=== PATIENT | female | born 1935 | race Caucasian/White ===

== ENCOUNTER → 2016-11-13 | Outpatient (CLI) | payer MEDICARE ==
[2016-11-13 13:10] LABS: BASO % 0.2 %; BASO ABS # 0.01 K/uL (0-0.2); COMPLETE YES; EOS % 2.8 %; HEMATOCRIT 37.8 % (37-47); IG% 0.2 %; LYMPH % 34.2 %; LYMPH ABS # 1.59 K/uL (1.2-3.4); MEAN CELL VOLUME 90.9 fL (80-100); MEAN CORPUSCULAR HEMOGLOBIN 32.2 pg (25-34); MEAN CORPUSCULAR HGB CONC 35.4 g/dl (32-36); MEAN PLATELET VOLUME 9.7 fL (7.4-10.4); MONO % 8.2 %; NEUT % 54.4 %; PLATELET COUNT 140 K/uL (130-400); RED BLOOD COUNT 4.16 M/uL (4.2-5.4); WHITE BLOOD COUNT 4.65 K/uL (4.8-10.8)
[2016-11-13 18:27] LABS: BLOOD UREA NITROGEN 14 mg/dl (7-18); BUN/CREATININE RATIO 15.4 (10-20); CALCIUM 9.2 mg/dl (8.5-10.1); CARBON DIOXIDE 28 mmol/L (21-32); CHLORIDE 95 mmol/L (98-107); CREATININE 0.89 mg/dl (0.60-1.20); GLUCOSE 100 mg/dl (70-99); POTASSIUM 4.4 mmol/L (3.5-5.1); SODIUM 131 mmol/L (136-145)
[2016-11-13 18:37] LABS: PHOSPHORUS 3.7 mg/dl (2.5-4.9)
== END | disposition home or self-care (01) ==
LOC: C.LABMFLN 09:17
PROVIDERS: ATTEND Family Medicine
DX: I10 Essential (primary) hypertension (principal); E03.9 Hypothyroidism, unspecified

== ENCOUNTER → 2016-11-20 | Outpatient (CLI) | payer MEDICARE ==
[2016-11-20 18:04] LABS: BLOOD UREA NITROGEN 16 mg/dl (7-18); BUN/CREATININE RATIO 20.6 (10-20); CARBON DIOXIDE 29 mmol/L (21-32); CHLORIDE 99 mmol/L (98-107); GLUCOSE 77 mg/dl (70-99); PHOSPHORUS 3.4 mg/dl (2.5-4.9); POTASSIUM 3.8 mmol/L (3.5-5.1); SODIUM 136 mmol/L (136-145)
== END | disposition home or self-care (01) ==
LOC: C.LABMFLN 11:14
PROVIDERS: ATTEND Family Medicine
DX: E87.1 Hypo-osmolality and hyponatremia (principal)

== ENCOUNTER → 2017-03-11 | Outpatient (CLI) | payer MEDICARE ==
[~2017-03-11] MED LIST: ACET-1256 PO; AMLO-110 PO; ASCA500 PO; ASPI81TA25 PO; BENA1TAB53 PO; CALC600T9 PO; CALC625T35 PO; CLON0.5T3 PO; GLUC10007 PO; LEVO25TA PO; LYR50 PO; NTRGSL/4 SL; OMEP40CA41 PO; POTA10CA28 PO; SIMV20TA2 PO; VITA1TAB4 PO
== END | disposition home or self-care (01) ==
LOC: C.LABMFLN 08:43
PROVIDERS: ATTEND Family Medicine
DX: R30.0 Dysuria (principal)

== ENCOUNTER → 2017-03-17 | Outpatient (CLI) | payer MEDICARE | END | disposition home or self-care (01) | LOC: C.LABMFLN 10:08 | PROVIDERS: ATTEND Family Medicine | DX: R30.0 Dysuria (principal); N39.0 Urinary tract infection, site not specified ==

== ENCOUNTER → 2017-06-17 | Outpatient (CLI) | payer MEDICARE ==
[2017-06-17 18:08] LABS: ALT/SGPT 20 U/L (12-78); BLOOD UREA NITROGEN 18 mg/dl (7-18); BUN/CREATININE RATIO 24.4 (10-20); CALCIUM 9.7 mg/dl (8.5-10.1); CARBON DIOXIDE 27 mmol/L (21-32); CHLORIDE 96 mmol/L (98-107); CHOLESTEROL 155 mg/dl (0-200); CREATININE 0.75 mg/dl (0.60-1.20); GLUCOSE 91 mg/dl (70-99); POTASSIUM 4.6 mmol/L (3.5-5.1); SODIUM 130 mmol/L (136-145)
[2017-06-17 18:17] LABS: ALB/GLOB RATIO 1.2 (0.9-2); ALKALINE PHOSPHATASE 76 U/L (45-117); AST/SGOT 18 U/L (15-37); BASO % 0.4 %; BASO ABS # 0.02 K/uL (0-0.2); CHOLESTEROL/HDL RATIO 1.9; COMPLETE YES; EOS % 2.3 %; HDL CHOLESTEROL 81 mg/dl; HEMATOCRIT 38.5 % (37-47); IG% 0.2 %; LDL CHOLESTEROL CALCULATED 58 mg/dl; LYMPH % 30.2 %; LYMPH ABS # 1.58 K/uL (1.2-3.4); MEAN CELL VOLUME 92.8 fL (80-100); MEAN CORPUSCULAR HGB CONC 35.6 g/dl (32-36); MEAN PLATELET VOLUME 10.2 fL (7.4-10.4); MONO % 8.8 %; NEUT % 58.1 %; PLATELET COUNT 146 K/uL (130-400); RED BLOOD COUNT 4.15 M/uL (4.2-5.4); TRIGLYCERIDES 81 mg/dl (0-150); VERY LOW DENSITY LIPOPROT CALC 16 mg/dl; WHITE BLOOD COUNT 5.24 K/uL (4.8-10.8)
== END | disposition home or self-care (01) ==
LOC: C.LABMFLN 12:16
PROVIDERS: ATTEND Family Medicine
DX: I10 Essential (primary) hypertension (principal); E78.5 Hyperlipidemia, unspecified; E03.9 Hypothyroidism, unspecified

== ENCOUNTER → 2017-07-02 | Outpatient (CLI) | payer MEDICARE ==
[~2017-07-02] MED LIST changes: +BENA1TAB19 PO; -BENA1TAB53 PO
[2017-07-02 13:36] LABS: BLOOD UREA NITROGEN 18 mg/dl (7-18); BUN/CREATININE RATIO 25.6 (10-20); CALCIUM 9.2 mg/dl (8.5-10.1); CARBON DIOXIDE 30 mmol/L (21-32); CHLORIDE 102 mmol/L (98-107); CREATININE 0.71 mg/dl (0.60-1.20); GLUCOSE 86 mg/dl (70-99); POTASSIUM 3.9 mmol/L (3.5-5.1); SODIUM 137 mmol/L (136-145)
[2017-07-02 13:37] LABS: PHOSPHORUS 3.7 mg/dl (2.5-4.9)
== END | disposition home or self-care (01) ==
LOC: C.LABMFLN 11:25
PROVIDERS: ATTEND Family Medicine
DX: E87.1 Hypo-osmolality and hyponatremia (principal)

== ENCOUNTER → 2017-08-21 | Outpatient (CLI) | payer MEDICARE ==
[~2017-08-21] MED LIST changes: -BENA1TAB19 PO; +BENA1TAB53 PO
[2017-08-21 18:07] LABS: BLOOD UREA NITROGEN 18 mg/dl (7-18); BUN/CREATININE RATIO 24.9 (10-20); CARBON DIOXIDE 32 mmol/L (21-32); CHLORIDE 100 mmol/L (98-107); CREATININE 0.72 mg/dl (0.60-1.20); GLUCOSE 71 mg/dl (70-99); POTASSIUM 3.7 mmol/L (3.5-5.1); SODIUM 136 mmol/L (136-145)
== END | disposition home or self-care (01) ==
LOC: C.LABMFLN 11:48
PROVIDERS: ATTEND Physician Assistant
DX: E87.1 Hypo-osmolality and hyponatremia (principal)

== ENCOUNTER → 2017-08-26 | Outpatient (CLI) | payer MEDICARE ==
[2017-08-26 12:57] LABS: URINE APPEARANCE CLEAR (CLEAR); URINE BILIRUBIN NEG (NEG); URINE COLOR DK YELLOW; URINE NITRITE POS (NEG); URINE PH 5.5 (4.5-7.5); URINE SPECIFIC GRAVITY 1.016 (1.000-1.030); UROBILINOGEN NEG (NEG)
[2017-08-26 13:02] LABS: MANUAL MICROSCOPIC REQUIRED? NO; REVIEW REQ? NO
== END | disposition home or self-care (01) ==
LOC: C.LABMFLN 10:45
PROVIDERS: ATTEND Family Medicine
DX: R39.15 Urgency of urination (principal)

== ENCOUNTER → 2018-01-02 | Outpatient (CLI) | payer MEDICARE ==
--- NOTE | 2018-01-02 11:01 | DIAGNOSTIC IMAGING REPORT ---
SINUSES-MAXILLOFACIAL W/O CLINICAL HISTORY: 82 years-old Female presenting with J32.9 Chronic [id number]. TECHNIQUE: Multidetector CT of the sinuses was performed without the use of intravenous contrast. IV contrast: None. A dose lowering technique was used consistent with the principles of ALARA (as low as reasonably achievable). COMPARISON: None. CT DOSE (mGy.cm): The estimated cumulative dose is 293.27 mGycm. FINDINGS: [facility] Administrator topogram: Unremarkable. Paranasal sinuses demonstrate minimal mucosal thickening in the maxillary sinuses inferiorly. Mastoid air cells and middle ears clear. No significant deviation of the bony nasal septum. Ostiomeatal units patent. Nasofrontal ethmoidal recesses patent. No sclerosis of the sinus schafer to suggest chronic sinusitis. No osseous erosion. 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 No dehiscence of the bony optic canals. No other anatomic variant. Orbits normal. Degenerative changes of the upper cervical spine. Limited intracranial evaluation within normal limits. Superficial soft tissues of the face normal. IMPRESSION: 1. No current evidence of acute or chronic sinusitis. 2. 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 No other anatomic variant. Electronically signed by: Fili Patel M.D. 01/02/2018 11:00 AM Dictated Date/Time: 01/02/2018 10:56 AM
== END | disposition home or self-care (01) ==
LOC: C.CTS 10:37
PROVIDERS: ATTEND Family Medicine
DX: J32.9 Chronic sinusitis, unspecified (principal)

== ENCOUNTER 2025-04-13 12:34 | Inpatient (IN) ==
--- NOTE | 2025-04-13 14:05 | Emergency Department Note ---
Impression & Plan Acute hyponatremia, Constipation ED Provider Note NAME: GISELA ALFARO AGE: 89 SEX: F : 1935 ARRIVES VIA: Walk-In INFORMANT: Patient, ED PROVIDER(S): Mo Ambrzi MD CHIEF COMPLAINT: Outpatient referral, hyponatremia MEDICAL DECISION MAKING: Patient presents with the above. IV was established and blood work was obtained. The patient was noted to have significant hyponatremia of 109. Patient with a normal white count hemoglobin and platelet count. Patient does have a soft palpable abdomen screening KUB is unremarkable. Patient was ordered hypertonic 3% 100 cc saline bolus. I did discuss this with the hospitalist prior to admission who agreed with the plan of care. Urinalysis that showed concern for infection. Patient was ordered IV Rocephin. Urine and serum osmolality ordered along with urine electrolytes. I did speak with the on-call hospitalist after discussing this with the patient and the patient's family at bedside. Patient was admitted to the medicine service by Dr. Nova. Critical Care: I have personally spent 49 minutes of critical care time in direct management of this patient. This includes bedside care, interpretation of diagnostic studies, and testing, discussion with consultants, patient, and family members, and other require inpatient management activities. This 49 minutes is in excess of all separately billable procedures. Discussion w/ other healthcare providers: None Prior /Outside records reviewed: None Differential diagnosis: Infection, dehydration, metabolic abnormality, hypo/hyperglycemia, electrolyte imbalance, anemia, UTI, pneumonia, thyroid dysfunction among others were considered. Diagnostics, as interpreted by me: ECG: None Cardiac monitoring: An order was placed for continuous cardiac monitoring. The monitor shows a rate of 75 with sinus rhythm. Patient was placed on pulse oximetry Medical decision rules: None Imaging studies: I informally interpreted the patient's KUB does not show evidence of obvious obstruction with formal report to follow. HPI: Patient presents due to concern for constipation. Reportedly had a CT scan completed 2 days prior and they were concerned about a fecal impaction. Patient reportedly is not had a bowel movement 1 week in duration. Patient is passing gas. Patient also reports that she has had some issues over the right hip after receiving a back injection 2 weeks ago and has since developed a right foot drop which has been chronic. Patient denies any chest pains or shortness of breath. Patient is had nausea and dry heaves but no vomiting as the patient has not been eating or drinking very much. PAST MEDICAL HISTORY: See Below PAST SURGICAL HISTORY: See Below SOCIAL HISTORY: See Below HOME MEDICATIONS: See Below ALLERGIES: See Below VITALS: See Below PHYSICAL EXAMINATION: GENERAL: NAD, non-toxic. Wearing glasses. EYE EXAM: Normal conjunctiva. PERRL, no anisocoria and EOM's grossly intact w/o pain. OROPHARYNX: Moist mucus membranes, grossly normal dentition. NECK: Trachea midline, no stridor. LUNGS: Clear to auscultation. Normal chest wall mechanics. HEART: NSR, no MRG. ABDOMEN: Abdomen soft, distended but nontender, no masses, no rebound or guarding. BACK: No CVA TTP. SKIN: No rashes and no bruising. UPPER EXTREMITIES: Upper extremities are grossly normal. LOWER EXTREMITIES: Grossly normal, lower extremity edema symmetric without calf pain or erythema. NEURO EXAM: Awake and alert, follows commands, no obvious facial asymmetry, normal speech, moves all 4 extremities. Decreased mobility of the right foot when compared to the left. Past Med/Surg History Problem List (Updated 04/15/25 @ 23:41 by Mo Ambriz MD) Constipation (Acute) Acute hyponatremia (Acute) Hernia, mesocolon Constipation Right foot drop Lumbar back pain with radiculopathy affecting right lower extremity Degenerative lumbar spinal stenosis Cystitis Excessive cerumen in both ear canals Sepsis Pyelonephritis Dysuria Snores Dyspnea on exertion Anxiety Low back pain Lipoma H/O adenomatous polyp of colon (Acute) Sinus bradycardia (Acute) Sciatica of right side (Acute) Paroxysmal ventricular tachycardia (Acute) Medical History Acid reflux disease Psoriasis Rheumatoid arthritis Vitamin D deficiency Anxiety Diastolic dysfunction Hearing deficit Hyperlipidemia Hyperplastic polyps of stomach Hyponatremia Scoliosis Left bundle branch block Idiopathic peripheral neuropathy Generalized osteoarthritis of multiple sites Paroxysmal atrial tachycardia History of colon polyps Hypothyroidism Hypertension Lumbar spinal stenosis Lumbar radiculopathy, right 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 Age related osteoporosis Wears hearing aid in both ears Osteoarthritis History of gastric polyp Hyperlipidemia Left bundle branch block Peripheral neuropathy Surgical History History of dilatation and curettage History of open reduction and internal fixation (ORIF) procedure 1985 left--hardware removed History of esophagogastroduodenoscopy (EGD) History of tooth extraction History of phacoemulsification of cataract of both eyes with intraocular lens implantation Hx of cholecystectomy History of thyroidectomy, subtotal History of colonoscopy Family History Grandmother (Paternal) Cardiomegaly Father Suicide Hypertension Aunt Scleroderma Mother Suicide Brother Family history of diabetes mellitus at age 34 Prostate cancer Other No family history of adverse response to anesthesia Denies family history of Ovarian cancer Myocardial infarction Breast cancer Colorectal cancer Social History Smoking Status: Never smoker Second Hand Exposure: No; Do You Dip or Chew Tobacco: No; Hx Alcohol Use: No Hx Substance Use: No Preferred Language: Kyrgyz Communication Ability: Effective Visual Impairment: Partially Limited Hearing Ability: Use of Hearing Aid [place] Required: No Beliefs That Will Affect Care: None marital status: / Current Living Situation: Family Current Living Situation Comment: lives with daughter current occupational status: retired How many Children do You have: 6 How many Children do You have Comment: 5 alive 1 Other Information That Helps Us Care for You: No Feels Safe at Home: Yes Safety Concerns: Feels Safe At This Time Childhood Exposure to Second-Hand Smoke: Yes Diet: low carbohydrate, low salt and regular caffeine: Yes during the past year weight has: remained stable Dental Care, Regularly: Yes Physical Activity Frequency: Does not Exercise Seatbelt Use: always Sunscreen Use: No Gender Identity: Female Assistive Devices: Walker Allergies Allergies Allergy/AdvReac Type Severity Reaction Status Date / Time metoclopramide Allergy Severe tardive Verified 04/13/25 15:06 dyskinesia meloxicam Allergy Intermediate GI SYMPTOMS Verified 04/13/25 15:06 sulfamethoxazole Allergy Intermediate GI SYMPTOMS Verified 04/13/25 15:06 trimethoprim Allergy Intermediate GI SYMPTOMS Verified 04/13/25 15:06 Home Meds Home Medications Medication Instructions Recorded Confirmed acetaminophen 500 mg tablet 1,000 mg PO DIRECTED PRN fever 02/22/19 04/13/25 or pain ascorbic acid (vitamin C) 500 mg 500 mg PO QAM 02/22/19 04/13/25 tablet calcium 600 mg (as 1 tab PO DAILY 02/22/19 04/13/25 carbonate)-vitamin D3 5 mcg (200 unit) tablet fluticasone propionate 50 2 sprays intranasal DAILY PRN 02/22/19 04/13/25 mcg/actuation nasal Allergy Symptoms #1 g spray,suspension aspirin 81 mg tablet,delayed 81 mg PO 3XWK 05/25/24 04/13/25 release (Crystal Low Dose Aspirin) cranberry 500 mg capsule 500 mg PO 3XWK 05/25/24 04/13/25 glucosamine sulfate 500 mg capsule 500 mg PO DAILY 05/25/24 04/13/25 clonazepam 0.5 mg tablet 0.5 mg PO HS anxiety 04/13/25 04/13/25 lidocaine 4 % topical patch 1 patch topical DAILY PRN pain 04/13/25 04/13/25 Previous Rx's Medication Instructions Recorded cyanocobalamin (vitamin B-12) 1,000 mcg PO DAILY #30 tabs 11/25/22 1,000 mcg tablet omeprazole 40 mg capsule,delayed 40 mg PO DAILY #90 caps 08/02/24 release potassium chloride 10 mEq 10 meq PO 3XWK #36 tabs 09/14/24 tablet,extended release nitroglycerin 0.4 mg sublingual 0.4 mg sublingual Q5M PRN Angina 11/16/24 tablet #20 tabs triamterene 37.5 1 tab PO DAILY #90 tabs 12/20/24 mg-hydrochlorothiazide 25 mg tablet furosemide 20 mg tablet (Lasix) 20 mg PO DAILY #30 tabs 02/14/25 simvastatin 20 mg tablet 20 mg PO DAILY #90 tabs 03/04/25 amlodipine 5 mg tablet 5 mg PO DAILY #90 tabs 03/08/25 levothyroxine 25 mcg tablet 25 mcg PO DAILY #90 tabs 03/08/25 benazepril 40 mg tablet 40 mg PO QAM #90 tabs 03/14/25 tizanidine 2 mg tablet 2 mg PO Q8H PRN muscle spasticity 03/14/25 #90 tabs ondansetron 4 mg disintegrating 4 mg PO Q8H PRN nausea and 04/08/25 tablet vomiting #12 tabs oxycodone 5 mg tablet 5 mg PO Q4H PRN pain #15 tabs 04/08/25 Results & Data (ED) Vital Signs Vital Signs - 24 hr 04/13/25 12:37 07/30/25 13:53 Temperature 36.8 C Temperature Source Temporal Artery Scan Pulse Rate 65 Pulse Rate [Right Finger] 62 Pulse Rhythm [Right Finger] Regular Pulse Strength [Right Finger] Normal Respiratory Rate 18 18 Respiratory Effort / Characteristics Non-Labored Spontaneous Non-Labored Respiratory Depth Normal Normal Respiratory Pattern Regular Regular Blood Pressure 161/73 H Blood Pressure [Right Arm] 188/82 H Blood Pressure Mean 102 Blood Pressure Mean [Right Arm] 117 Blood Pressure Position [Right Arm] Lying Pulse Oximetry 96 97 Oxygen Delivery Method Room Air Room Air Sepsis Recent Fever Within 48 Hours No Sepsis New/Unexplained Change in Mental Status N/A Sepsis Action Taken by Nursing No Action Required Home Medications Current Medication List: was personally reviewed by me Laboratory Data Attestation: I reviewed the patient's lab results. 04/15/25 04:53 04/15/25 20:27 Lab Results 04/13/25 04/13/25 04/13/25 Range/Units 13:20 13:36 16:30 WBC 8.47 (4.8-10.8) K/ul RBC 4.04 L (4.20-5.40) M/uL Hgb 13.0 (12.0-16.0) g/dl Hct 34.8 L (37.0-47.0) % MCV 86.1 (80.0-100.0) fL MCH 32.2 (25.0-34.0) pg MCHC 37.4 H (32.0-36.0) g/dL RDW Std Deviation 33.9 L (36.4-46.3) fL RDW Coeff of Sarah 10.9 L (11.5-14.5) % Plt Count 211 (130-400) K/uL MPV 9.0 L (9.4-12.4) fL Immature Gran % (Auto) 0.6 % Neut % (Auto) 83.5 % Lymph % (Auto) 11.1 % [place] % (Auto) 4.5 % Eos % (Auto) 0.2 % Baso % (Auto) 0.1 % Neut # (Auto) 7.07 H (1.40-6.50) K/uL Lymph # (Auto) 0.94 L (1.20-3.40) K/uL [place] # (Auto) 0.38 (0.11-0.59) K/uL Eos # (Auto) 0.02 (0.00-0.50) K/uL Baso # (Auto) 0.01 (0.00-0.20) K/uL Immature Gran # (Auto) 0.05 (0.01-0.20) K/uL Toxic Vacuolation 1+ Sodium 109 L* 111 L* (136-145) mmol/L Potassium 3.9 3.8 (3.5-5.1) mmol/L Chloride 75 L 76 L (98-107) mmol/L Carbon Dioxide 23 26 (21-32) mmol/L Anion Gap 11 9 (3-11) BUN 18 18 (6-23) mg/dl Creatinine 0.77 0.70 (0.6-1.2) mg/dl Est Cr Clr Drug Dosing Not Reportable 54.4 eGFR 73.69 82.62 BUN/Creatinine Ratio 23.4 H 25.7 H (10-20) Glucose 111 H 111 H (70-99(Fasting)) mg/dl Osmolality 232 L* (280-300) mOsm/kg Calcium 9.7 9.0 (8.6-10.3) mg/dl Total Bilirubin 1.5 H (0.2-1.0) mg/dl AST 33 (13-39) U/L ALT 17 (7-52) U/L Alkaline Phosphatase 61 (34-104) U/L Total Protein 7.7 (6.0-8.3) gm/dl Albumin 4.5 (3.4-5.0) gm/dl Globulin 3.2 (2.5-4.0) gm/dl Albumin/Globulin Ratio 1.4 (0.9-2) Lipase 11 (11-82) U/L Random Cortisol 27.16 mcg/dl Urine Color Yellow Urine Appearance Cloudy A (Clear) Urine pH 7.0 (4.5-7.5) Ur Specific Cougar 1.013 (1.000-1.030) Urine Protein 1+ H (Negative) Urine Glucose (UA) Negative (Negative) Urine Ketones 1+ H (Negative) Urine Blood Negative (Negative) Urine Nitrite Negative (Negative) Urine Bilirubin Negative (Negative) Urine Urobilinogen Negative (Negative) Ur Leukocyte Esterase 1+ H (Negative) Urine WBC (Auto) 0-5 (0-5) /hpf Urine RBC (Auto) 0-2 (0-2) /hpf U Hyaline Cast (Auto) 0-2 (0-2) /lpf U Epithel Cells (Auto) 0-2 (0-2) /hpf Urine Bacteria (Auto) 4+ H (None Seen) Urine Osmolality 474 L (500-800) mOsm/kg Urine Sodium 103 mmol/L Urine Potassium 37.2 mmol/L Urine Chloride 91 mmol/L Urine Comment Administered Medications Acetaminophen (Acetaminophen 500 Mg Tab) 500 mg PO Q6H PRN PRN Reason: Fever Stop: 05/13/25 20:25 Last Admin: 04/15/25 12:19 Dose: 500 mg Documented By: JOANIE Hydrocodone Bitart/Acetaminophen (Hydrocodone/Acetaminophen 7.5/325mg Tab) 1 tab PO Q6H PRN PRN Reason: Pain Stop: 04/27/25 20:25 Last Admin: 04/15/25 22:46 Dose: 1 tab Documented By: [id number] Admin: 04/15/25 09:13 Dose: 1 tab Documented By: Admin: 04/14/25 08:49 Dose: 1 tab Documented By: Admin: 04/13/25 23:13 Dose: 1 tab Documented By: ESG Clonazepam (Clonazepam 0.5 Mg Tab) 0.5 mg PO HS SAAD Stop: 05/13/25 20:59 Last Admin: 04/15/25 20:53 Dose: 0.5 mg Documented By: [id number] Admin: 04/14/25 21:05 Dose: 0.5 mg Documented By: Admin: 04/13/25 21:33 Dose: 0.5 mg Documented By: GABRIELK Cyanocobalamin (Cyanocobalamin (B-12) 500 Mcg Tablet) 1,000 mcg PO DAILY SAAD Stop: 05/14/25 08:59 Last Admin: 04/15/25 09:12 Dose: 1,000 mcg Documented By: Admin: 04/14/25 08:27 Dose: 1,000 mcg Documented By: CELINA Diclofenac Sodium (Diclofenac Sod 1% Gel 100 Gm Tube) 4 gm EXT Q6H PRN; Protocol PRN Reason: Pain Stop: 05/14/25 17:14 Last Admin: 04/15/25 10:24 Dose: 4 gm Documented By: Admin: 04/14/25 17:56 Dose: 4 gm Documented By: CELINA Docusate Sodium (Docusate Sodium 100 Mg Cap) 100 mg PO BID SAAD Stop: 05/14/25 20:59 Last Admin: 04/15/25 20:53 Dose: 100 mg Documented By: [id number] Admin: 04/15/25 09:13 Dose: 100 mg Documented By: Admin: 04/14/25 21:05 Dose: 100 mg Documented By: GILBERT Enalapril Maleate (Enalapril Maleate 10 Mg Tab) 20 mg PO QPM SAAD Stop: 05/14/25 20:59 Last Admin: 04/15/25 20:54 Dose: 20 mg Documented By: [id number] Admin: 04/14/25 21:05 Dose: 20 mg Documented By: GILBERT Fluticasone Propionate (Fluticasone Propionate Na Spr 16 Gm Btl) 2 sprays NA DAILY SAAD Stop: 05/14/25 08:59 Last Admin: 04/15/25 09:13 Dose: 2 sprays Documented By: Admin: 04/14/25 08:28 Dose: 2 sprays Documented By: CELINA Furosemide (Furosemide Inj 20 Mg/2 Ml Vial) 20 mg IV BID17 SAAD Stop: 05/15/25 08:59 Last Admin: 04/15/25 15:18 Dose: 20 mg Documented By: Admin: 04/15/25 09:13 Dose: 20 mg Documented By: JOANIE Levothyroxine Sodium (Levothyroxine Sodium 25 Mcg Tablet) 25 mcg PO DAILY SAAD Stop: 05/14/25 08:59 Last Admin: 04/15/25 09:12 Dose: 25 mcg Documented By: Admin: 04/14/25 08:27 Dose: 25 mcg Documented By: CELINA Magnesium Citrate (Magnesium Citrate 296 Ml/Btl) 148 ml PO TODAY@ [facility] Stop: 05/15/25 08:44 Last Admin: 04/15/25 12:18 Dose: 148 ml Documented By: JOANIE Miscellaneous (Lidocaine Patch - Pending Order) 1 each N/A QS [facility] Stop: 05/14/25 00:00 Last Admin: 04/15/25 17:12 Dose: Not Given Documented By: Admin: 04/15/25 10:12 Dose: Not Given Documented By: Admin: 04/14/25 23:34 Dose: Not Given Documented By: Admin: 04/14/25 16:39 Dose: Not Given Documented By: Admin: 04/14/25 08:29 Dose: Not Given Documented By: Admin: 04/14/25 00:44 Dose: Not Given Documented By: ESG Miscellaneous (Icu Protocol For Hyperglycemia) 1 each N/A Q6H SAAD Stop: 04/16/25 00:00 Last Admin: 04/15/25 17:13 Dose: Not Given Documented By: Admin: 04/15/25 12:24 Dose: Not Given Documented By: Admin: 04/15/25 06:09 Dose: Not Given Documented By: Admin: 04/14/25 23:34 Dose: Not Given Documented By: Admin: 04/14/25 17:34 Dose: Not Given Documented By: Admin: 04/14/25 16:32 Dose: Not Given Documented By: Admin: 04/14/25 06:24 Dose: Not Given Documented By: Admin: 04/13/25 22:32 Dose: Not Given Documented By: ESAlexandria Nystatin (Nystatin Powder 15gm Btl) 1 appln EXT TID SAAD Stop: 05/14/25 14:04 Last Admin: 04/15/25 20:54 Dose: Not Given Documented By: [id number] Admin: 04/15/25 14:52 Dose: 1 appln Documented By: Admin: 04/15/25 11:01 Dose: 1 appln Documented By: Admin: 04/14/25 21:06 Dose: 1 appln Documented By: Admin: 04/14/25 16:38 Dose: 1 appln Documented By: [facility] Ondansetron HCl (Ondansetron Inj 2 Mg/Ml 2 Ml Vial) 4 mg IV Q6H PRN PRN Reason: Nausea And Vomiting Stop: 05/13/25 20:25 Last Admin: 04/15/25 22:20 Dose: 4 mg Documented By: [id number] Admin: 04/15/25 12:19 Dose: 4 mg Documented By: Admin: 04/14/25 21:07 Dose: 4 mg Documented By: Admin: 04/13/25 23:09 Dose: 4 mg Documented By: CARLO Pantoprazole Sodium (Pantoprazole 40 Mg Tab) 40 mg PO BID SAAD Stop: 05/13/25 20:59 Last Admin: 04/15/25 20:53 Dose: 40 mg Documented By: [id number] Admin: 04/15/25 09:13 Dose: 40 mg Documented By: Admin: 04/14/25 21:05 Dose: 40 mg Documented By: Admin: 04/14/25 08:28 Dose: 40 mg Documented By: Admin: 04/13/25 21:30 Dose: 40 mg Documented By: GABRIELK Polyethylene Glycol (Polyethylene (Miralax) 17 Gm Pack) 17 gm PO DAILY SAAD Stop: 05/14/25 08:59 Last Admin: 04/15/25 09:12 Dose: 17 gm Documented By: Admin: 04/14/25 08:32 Dose: 17 gm Documented By: CELINA Sennosides (Senna 8.6 Mg Tab) 17.2 mg PO HS SAAD Stop: 05/13/25 20:59 Last Admin: 04/15/25 20:53 Dose: 17.2 mg Documented By: [id number] Admin: 04/14/25 21:05 Dose: 17.2 mg Documented By: Admin: 04/13/25 21:33 Dose: 17.2 mg Documented By: GABRIELK Simvastatin (Simvastatin 20 Mg Tab) 20 mg PO DAILY SAAD Stop: 05/14/25 08:59 Last Admin: 04/15/25 09:13 Dose: 20 mg Documented By: Admin: 04/14/25 08:28 Dose: 20 mg Documented By: CELINA Sodium Chloride (Sodium Chloride 1 Gm Tablet) 2 gm PO TID SAAD Stop: 05/14/25 13:59 Last Admin: 04/15/25 20:53 Dose: 2 gm Documented By: [id number] Admin: 04/15/25 14:51 Dose: 2 gm Documented By: Admin: 04/15/25 09:13 Dose: 2 gm Documented By: Admin: 04/14/25 21:05 Dose: 2 gm Documented By: Admin: 04/14/25 16:35 Dose: 2 gm Documented By: CELINA Sucralfate (Sucralfate 1 Gm/10 Ml Udc) 1 gm PO ACHS SAAD Stop: 05/13/25 20:59 Last Admin: 04/15/25 20:54 Dose: Not Given Documented By: [id number] Admin: 04/15/25 15:16 Dose: 1 gm Documented By: Admin: 04/15/25 12:19 Dose: 1 gm Documented By: Admin: 04/15/25 09:12 Dose: 1 gm Documented By: Admin: 04/14/25 21:04 Dose: 1 gm Documented By: Admin: 04/14/25 17:34 Dose: Not Given Documented By: Admin: 04/14/25 16:31 Dose: Not Given Documented By: Admin: 04/14/25 08:24 Dose: 1 gm Documented By: Admin: 04/13/25 21:31 Dose: 1 gm Documented By: GABRIELK Tizanidine HCl (Tizanidine Hcl 4 Mg Tablet) 2 mg PO Q8H PRN PRN Reason: muscle spasticity Stop: 05/13/25 20:25 Last Admin: 04/14/25 08:27 Dose: 2 mg Documented By: CELINA Urea (Urea (Urea-Na) 15 Gm Pack) 15 gm PO BID SAAD Stop: 05/15/25 08:59 Last Admin: 04/15/25 20:53 Dose: 15 gm Documented By: [id number] Admin: 04/15/25 09:13 Dose: 15 gm Documented By: JOANIE Discontinued Medications Hydrocodone Bitart/Acetaminophen (Hydrocodone/Acetaminophen 7.5/325mg Tab) 1 tab PO NOW STA Stop: 04/13/25 16:20 Last Admin: 04/13/25 16:36 Dose: 1 tab Documented By: ASTRID Amlodipine Besylate (Amlodipine Besylate 5 Mg Tab) 5 mg PO DAILY SAAD Stop: 05/14/25 08:59 Last Admin: 04/14/25 08:29 Dose: 5 mg Documented By: CELINA Furosemide (Furosemide Inj 20 Mg/2 Ml Vial) 20 mg IV ONE ONE Stop: 04/14/25 09:38 Last Admin: 04/14/25 10:26 Dose: 20 mg Documented By: CELINA Furosemide (Furosemide Inj 20 Mg/2 Ml Vial) 20 mg IV ONE ONE Stop: 04/14/25 20:18 Last Admin: 04/14/25 21:06 Dose: 20 mg Documented By: TP Acetaminophen (Ofirmev) 1,000 mg in 100 mls @ 400 mls/hr IV NOW STA Stop: 04/13/25 15:06 Last Infusion: 04/13/25 15:21 Dose: Infused Documented By: Admin: 04/13/25 14:59 Dose: 400 mls/hr Documented By: ASTRID Ceftriaxone Sodium (Rocephin) 2,000 mg in 50 mls @ 100 mls/hr IV NOW STA Stop: 04/13/25 15:22 Last Infusion: 04/13/25 15:45 Dose: Infused Documented By: Admin: 04/13/25 15:10 Dose: 100 mls/hr Documented By: GILA Sodium Chloride (Hypertonic Saline 3%) 100 mls @ 600 mls/hr IV .Q10M ONE; Protocol Stop: 04/13/25 15:02 Last Infusion: 04/13/25 15:31 Dose: Infused Documented By: ASTRID Co-signed By: GILA Admin: 04/13/25 15:16 Dose: 600 mls/hr Documented By: GILA Co-signed By: GIBRAN Sodium Chloride (Hypertonic Saline 3%) 100 mls @ 600 mls/hr IV .Q10M ONE; Protocol Stop: 04/13/25 17:26 Last Infusion: 04/13/25 18:07 Dose: Infused Documented By: ASTRID Co-signed By: GILA Admin: 04/13/25 17:52 Dose: 600 mls/hr Documented By: GILA Co-signed By: ASTRID Potassium Chloride (K Aashish / Wtr) 10 meq in 100 mls @ 100 mls/hr IV Q1H SAAD Stop: 04/14/25 00:14 Last Infusion: 04/13/25 22:48 Dose: Infused Documented By: Infusion: 04/13/25 22:31 Dose: 50 mls/hr Documented By: Admin: 04/13/25 22:27 Dose: 100 mls/hr Documented By: CARLO Magnesium Sulfate/Dextrose (Magnesium Sulfate / D5w) 1 gm in 100 mls @ 50 mls/hr IV Q2H SAAD Stop: 04/14/25 11:44 Last Infusion: 04/14/25 18:43 Dose: Infused Documented By: Admin: 04/14/25 10:24 Dose: 50 mls/hr Documented By: Infusion: 04/14/25 10:23 Dose: Infused Documented By: Admin: 04/14/25 08:23 Dose: 50 mls/hr Documented By: Infusion: 04/14/25 08:23 Dose: Infused Documented By: Admin: 04/14/25 06:24 Dose: 50 mls/hr Documented By: ESG Sodium Chloride (Hypertonic Saline 3%) 150 mls @ 450 mls/hr IV .Q20M ONE; Protocol Stop: 04/14/25 19:42 Last Infusion: 04/14/25 20:18 Dose: Infused Documented By: TP Co-signed By: JT Admin: 04/14/25 19:58 Dose: 450 mls/hr Documented By: TP Co-signed By: AMS Sodium Chloride (Hypertonic Saline 3%) 150 mls @ 450 mls/hr IV .Q20M ONE; Protocol Stop: 04/15/25 09:19 Last Infusion: 04/15/25 12:27 Dose: Infused Documented By: JOANIE Co-signed By: AMB Admin: 04/15/25 09:37 Dose: 450 mls/hr Documented By: JOANIE Co-signed By: AMB Sodium Chloride (Hypertonic Saline 3%) 50 mls @ 300 mls/hr IV .Q10M ONE; Protocol Stop: 04/15/25 13:54 Last Infusion: 04/15/25 23:29 Dose: Infused Documented By: [id number] Co-signed By: TEJ Admin: 04/15/25 14:03 Dose: 300 mls/hr Documented By: JOANIE Co-signed By: AMB Sodium Chloride (Hypertonic Saline 3%) 150 mls @ 450 mls/hr IV .Q20M ONE; Protocol Stop: 04/15/25 15:19 Last Infusion: 04/15/25 23:29 Dose: Infused Documented By: [id number] Co-signed By: TEJ Admin: 04/15/25 15:16 Dose: 450 mls/hr Documented By: JOANIE Co-signed By: CF Mineral Oil (Mineral Oil 30 Ml Udc) 30 ml PO NOW ONE Stop: 04/14/25 14:00 Last Admin: 04/14/25 16:37 Dose: 30 ml Documented By: CELINA Miscellaneous (Stat Iv/Im) 1 each N/A NOW STA Stop: 04/13/25 14:54 Last Admin: 04/13/25 17:55 Dose: Not Given Documented By: GILA Miscellaneous (Patient's Height &/Or Weight Needed) 1 each N/A Q2H STA Stop: 04/13/25 15:00 Last Admin: 04/13/25 15:21 Dose: Not Given Documented By: GILA Garcia (Stat Iv/Im) 1 each N/A NOW STA Stop: 04/13/25 17:18 Last Admin: 04/13/25 17:55 Dose: Not Given Documented By: GILA Garcia (Icu Protocol For Hyperglycemia) 1 each N/A ACHS SAAD Stop: 04/15/25 20:59 Last Admin: 04/13/25 22:49 Dose: Not Given Documented By: CARLO Garica (Stop Order) 1 each N/A ONE ONE Stop: 04/15/25 09:21 Last Admin: 04/15/25 10:14 Dose: 1 each Documented By: JOANIE Ondansetron HCl (Ondansetron Inj 2 Mg/Ml 2 Ml Vial) 4 mg IV NOW STA Stop: 04/13/25 14:53 Last Admin: 04/13/25 15:00 Dose: 4 mg Documented By: CTK Potassium Chloride (Potassium Chloride 20 Meq/15 Ml Udc) 20 meq PO NOW STA Stop: 04/13/25 22:49 Last Admin: 04/14/25 00:45 Dose: Not Given Documented By: ESG Potassium Chloride (Potassium Chloride Crtab 20 Meq Tabcr) 20 meq PO NOW STA Stop: 04/13/25 22:58 Last Admin: 04/13/25 23:11 Dose: 20 meq Documented By: ESG Potassium Chloride (Potassium Chloride Crtab 20 Meq Tabcr) 40 meq PO NOW STA Stop: 04/15/25 06:15 Last Admin: 04/15/25 10:09 Dose: 40 meq Documented By: JOANIE Potassium Chloride (Potassium Chloride Crtab 20 Meq Tabcr) 40 meq PO NOW STA Stop: 04/15/25 09:40 Last Admin: 04/15/25 10:13 Dose: Not Given Documented By: JOANIE Discharge Plan Visit Data Chief Complaint: Constipation Stated Complaint: BOWEL BLOCKAGE ED Provider: Mo Ambriz Discharge Problem: Acute hyponatremia, Constipation Patient Disposition: Admitted As Inpatient Condition: Good Discharge Instructions Interventions: ED Discharge Assessment Last Done: 04/13/25 20:26 Discharge Problem: Constipation Qualifiers: Constipation type: unspecified constipation type Qualified Code(s): K59.00 - Constipation, unspecified
[2025-04-13 14:07] LABS: Alanine Aminotransferase 17 U/L (7-52); Albumin Globulin Ratio 1.4 (0.9-2); Alkaline Phosphatase 61 U/L (34-104); Anion Gap 11 (3-11); Bilirubin,Total 1.5 mg/dl (0.2-1.0); Blood Urea Nitrogen 18 mg/dl (6-23); Calcium 9.7 mg/dl (8.6-10.3); Carbon Dioxide 23 mmol/L (21-32); Chloride 75 mmol/L (98-107); Globulin 3.2 gm/dl (2.5-4.0); Glucose 111 mg/dl (70-99(Fasting)); Lipase 11 U/L (11-82); Potassium 3.9 mmol/L (3.5-5.1); Sodium 109 mmol/L (136-145); Total Protein 7.7 gm/dl (6.0-8.3)
[2025-04-13 14:11] LABS: Hematocrit (blood only) 34.8 % (37.0-47.0); Hemoglobin 13.0 g/dl (12.0-16.0); Immature Granulocytes # (auto) 0.05 K/uL (0.01-0.20); Immature Granulocytes % (auto) 0.6 %; Mean Corpuscular Hemoglobin 32.2 pg (25.0-34.0); Mean Corpuscular Volume 86.1 fL (80.0-100.0); Platelet Count 211 K/uL (130-400); RDW Standard Deviation 33.9 fL (36.4-46.3); Red Blood Count 4.04 M/uL (4.20-5.40); Toxic Vacuolation 1+; White Blood Count 8.47 K/ul (4.8-10.8)
[2025-04-13 14:17] LABS: Appearance Urine Cloudy (Clear); Bacteria Urine Automated 4+ (None Seen); Cast Urine Automated 0-2 /lpf (0-2); Epithelial Cell Urine Auto 0-2 /hpf (0-2); Glucose Urine UA Negative (Negative); WBC Urine Automated 0-5 /hpf (0-5)
[2025-04-13 14:33] LABS: RBC Urine Automated 0-2 /hpf (0-2)
--- NOTE | 2025-04-13 14:55 | XRay Report ---
KUB HISTORY: constipation COMPARISON STUDY: 04/11/2025 FINDINGS: There is mild to moderate retained stool. No bowel obstruction seen. No gross free air. Sta ble scoliosis. IMPRESSION: No acute findings. ACT 112: Negative or not required by law. The above report was generated using voice recognition software. It may contain grammatical, syntax o r spelling errors. Electronically signed by: Jasen Pandya M.D. 04/13/2025 2:54 PM
[2025-04-13] MEDS: ACETAMINOPHEN 1,000 MG/100 ML VIAL IV STA (14:59)
[2025-04-13] MEDS: ONDANSETRON INJ 2 MG/ML 2 ML VIAL IV STA (15:00)
[2025-04-13] MEDS: cefTRIAXone SODIUM 2,000 MG/50 ML BAG IV STA (15:10)
[2025-04-13] MEDS: SODIUM CHLORIDE 3 % 100 ML IV ONE ×2 (15:16→17:52)
[2025-04-13] MEDS: Patient's HEIGHT &/or WEIGHT Needed STA (15:21)
--- NOTE | 2025-04-13 15:34 | History & Physical Report ---
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 She was seen by her PCP on day of admission at the [place] office due to persistent nausea, dry heaves/vomiting, poor PO intake, right foot drop/right foot "dragging" when she walks, intractable right leg pain, and concerns for hernia that was seen on recent CT scan at [facility] on 04/11/25. When she presented today to [facility] her sodium was found to be 109; about 1 week ago it was 130. #acute on chronic hyponatremia - -chronic hyponatremia (baseline low 130s) likely due to regular use of HCTZ and occasional lasix -acute hyponatremia seems temporarily related to very poor PO intake over the last week; this would suggest solute deficiency, but her urine Na level is high which argues against solute deficiency (her HCTZ use and recent lasix use, however, may be confounding the results) -on exam today she does not appear volume contracted; she has chronic peripheral edema on exam but nothing else to suggest decompensated CHF -BUN & creatinine are normal -recent steroid injection, vomiting, etc may also be contributing to acute hyponatremia -surprisingly, despite the acuity and the severity of her hyponatremia, she has not had mental status changes -fortunately no seizures -in the ER today she received 100ml of 3% saline; she had improvement in her Na level to 111 from 109 -I had phone consultation with on-call [facility], Dr Montelongo, and will provide another dose of 3% saline 100ml now -plan serial Na levels q4h -I spoke with Dr Dumont from the ICU and we both agree, given the severity of the hyponatremia, that ICU admission is prudent -plan to recheck urine osm and urine Na tomorrow am -cortisol level wnl -last TSH was March 2024; repeat TSH needed -element of SIADH if urine osm and urine Na remain elevated? if she has component of SIADH - etiology? I am not aware an epidural steroid injection alone can cause such -appreciate consultations by Dr Dumont and Dr Montelongo -holding HCTZ & Lasix #acute/chronic low back pain, RLE radicular pain, and new onset right foot drop - -once hyponatremia is improved and Na levels are more stable would obtain dedicated imaging of lumbar spine - r/o hematoma/other pathology that could have triggered worsening lumbar spine symptoms -as noted - she had an epidural steroid injection at L5-S1 on 04/05/25 by pain management -for acute pain - norco 7.5's prn (tolerated this dose in ER); cont chronic zanaflex prn -of note - 04/11/25 CT a/p did not mention any significant abnormalities of the lumbar spine #poor oral intake/anorexia, nausea/vomiting - -04/11 CT done at [facility] did not show signs of ileus or obstruction -KUB x-ray today without obstruction -LFTs, lipase wnl -UTI? -side effects from narcotics? -combination of factors? -CT did mention findings that could fit with gastritis; thus, increase PPI to twice daily (was taking QD at home) + add carafate 1gm QID -diet as tolerated #mesosigmoid colon hernia - -seen on CT a/p on 04/11/25 at outside hospital -no obstruction seen on that CT -this is a form of internal hernia -doubt contributing to current symptoms -will informally d/w on-call general surgery #hypothyroidism - -chest TSH -cont synthroid #HTN - -uncontrolled; suspect 2nd to pain -cont home pain meds - benazapril & amlodipine; adjust as needed #?UTI - -s/p rocephin in ER; will continue for now -given the left shift on CBC with toxic granulation will obtain blood cx's in addition to urine cx -obtain imaging of lumbar spine when sodium levels are more stable/improved; r/o any infectious process of lumbar spine area in light of worsening back/RLE pain #GERD - -PPI twice daily -carafate QID -see above #DVT proph - -until dedicated imaging of lumbar spine has been completed (to r/o hematoma, etc) hold off on chemical DVT proph #LBBB - -chronic, no ischemic symptoms #constipation - -likely 2nd to narcotics over the last week for her back -senna + miralax; add additional agents as necessary care d/w Dr Dumont from critical care care d/w Dr Montelongo from nephrology total critical care time about 75 minutes (management of severe hyponatremia and use of hypertonic saline, complex care coordination, etc) History of Present Illness Chief Complaint: constipation, right leg pain, right foot dragging, worsening back pain Primary Care Provider: Rowena Barba, DO 89yo female with history of 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 She was seen by her PCP earlier today at the [place] office due to persistent nausea, dry heaves/vomiting, poor PO intake, right foot drop/right foot "dragging" when she walks, intractable right leg pain, and concerns for hernia that was seen on recent CT scan. When she presented today to [facility] her sodium was found to be 109; about 1 week ago it was 130. The patient has had 2 ER visits to [facility] ER - first on 04/07, and the 2nd on 04/11. First visit was due to back pain and RLE radicular pain; 2nd visit was due to nausea/dry heaves & lack of bowel movement. During the 2nd ER visit she underwent CT abd/pelvis showing a "mesosigmoid" hernia but no obstruction. She has been taking miralax to no avail for her constipation; last BM was 04/06/25. Of note - she was prescribed percocet at the 04/07 ER visit and she has been taking it about twice daily since then. Since late last week she has been eating/drinking poorly. It especially got worse this past Friday. She has had nausea with dry heaves, and had kathleen emesis x 3 yesterday. No fevers. With respect to her lumbar spine - had Right L5-S1 transforaminal epidural steroid injection by Dr Ledezma on 04/05/25. She has had worsening "spasms" of her RLE since that time despite the injection. Family has also noted she has been dragging her right foot since the injection. As noted above has been using percocet prn pain. Also with low back pain - this has been worse than baseline over the last few days. Pt's 2 daughters who are at bedside during the admissions process state their mother is at neurocognitive baseline today - no confusion, no lethargy, etc. Finally, patient does report she takes triamterene/HCTZ each day, and about 2-3 weeks ago - due to increasing LE edema of both legs - took about 3 days of oral lasix. During my admissions assessment the patient kept asking to sit straight up in bed or in a chair. Apparently she sleeps in a chair at night-time; she cannot sleep in a bed. Allergies Allergy/AdvReac Type Severity Reaction Status Date / Time metoclopramide Allergy Severe tardive Verified 04/13/25 15:06 dyskinesia meloxicam Allergy Intermediate GI SYMPTOMS Verified 04/13/25 15:06 sulfamethoxazole Allergy Intermediate GI SYMPTOMS Verified 04/13/25 15:06 trimethoprim Allergy Intermediate GI SYMPTOMS Verified 04/13/25 15:06 Home Medications Medication Instructions Recorded Confirmed Type acetaminophen 500 mg tablet 1,000 mg PO DIRECTED PRN fever 02/22/19 04/13/25 History or pain ascorbic acid (vitamin C) 500 mg 500 mg PO QAM 02/22/19 04/13/25 History tablet calcium 600 mg (as 1 tab PO DAILY 02/22/19 04/13/25 History carbonate)-vitamin D3 5 mcg (200 unit) tablet fluticasone propionate 50 2 sprays intranasal DAILY PRN 02/22/19 04/13/25 History mcg/actuation nasal Allergy Symptoms #1 g spray,suspension cyanocobalamin (vitamin B-12) 1,000 mcg PO DAILY #30 tabs 11/25/22 04/13/25 Rx 1,000 mcg tablet aspirin 81 mg tablet,delayed 81 mg PO 3XWK 05/25/24 04/13/25 History release (Crystal Low Dose Aspirin) cranberry 500 mg capsule 500 mg PO 3XWK 05/25/24 04/13/25 History glucosamine sulfate 500 mg capsule 500 mg PO DAILY 05/25/24 04/13/25 History omeprazole 40 mg capsule,delayed 40 mg PO DAILY #90 caps 08/02/24 04/13/25 Rx release potassium chloride 10 mEq 10 meq PO 3XWK #36 tabs 09/14/24 04/13/25 Rx tablet,extended release nitroglycerin 0.4 mg sublingual 0.4 mg sublingual Q5M PRN Angina 11/16/24 04/13/25 Rx tablet #20 tabs triamterene 37.5 1 tab PO DAILY #90 tabs 12/20/24 04/13/25 Rx mg-hydrochlorothiazide 25 mg tablet furosemide 20 mg tablet (Lasix) 20 mg PO DAILY #30 tabs 02/14/25 04/13/25 Rx simvastatin 20 mg tablet 20 mg PO DAILY #90 tabs 03/04/25 04/13/25 Rx amlodipine 5 mg tablet 5 mg PO DAILY #90 tabs 03/08/25 04/13/25 Rx levothyroxine 25 mcg tablet 25 mcg PO DAILY #90 tabs 03/08/25 04/13/25 Rx benazepril 40 mg tablet 40 mg PO QAM #90 tabs 03/14/25 04/13/25 Rx tizanidine 2 mg tablet 2 mg PO Q8H PRN muscle spasticity 03/14/25 04/13/25 Rx #90 tabs ondansetron 4 mg disintegrating 4 mg PO Q8H PRN nausea and 04/08/25 04/13/25 Rx tablet vomiting #12 tabs oxycodone 5 mg tablet 5 mg PO Q4H PRN pain #15 tabs 04/08/25 04/13/25 Rx clonazepam 0.5 mg tablet 0.5 mg PO HS anxiety 04/13/25 04/13/25 History lidocaine 4 % topical patch 1 patch topical DAILY PRN pain 04/13/25 04/13/25 History Past Med/Surg History Problem List (Updated 04/14/25 @ 04:10 by Guanako Nova MD) Hernia, mesocolon Constipation Right foot drop Lumbar back pain with radiculopathy affecting right lower extremity Degenerative lumbar spinal stenosis Cystitis Excessive cerumen in both ear canals Sepsis Pyelonephritis Dysuria Snores Dyspnea on exertion Anxiety Low back pain Lipoma H/O adenomatous polyp of colon (Acute) Sinus bradycardia (Acute) Sciatica of right side (Acute) Paroxysmal ventricular tachycardia (Acute) Medical History (Updated 04/14/25 @ 04:10 by Guanako Nova MD) Acid reflux disease Psoriasis Rheumatoid arthritis Vitamin D deficiency Anxiety Diastolic dysfunction Hearing deficit Hyperlipidemia Hyperplastic polyps of stomach Hyponatremia Scoliosis Left bundle branch block Idiopathic peripheral neuropathy Generalized osteoarthritis of multiple sites Paroxysmal atrial tachycardia History of colon polyps Hypothyroidism Hypertension Lumbar spinal stenosis Lumbar radiculopathy, right 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 Age related osteoporosis Wears hearing aid in both ears Osteoarthritis History of gastric polyp Hyperlipidemia Left bundle branch block Peripheral neuropathy Surgical History History of dilatation and curettage History of open reduction and internal fixation (ORIF) procedure 1985 left--hardware removed History of esophagogastroduodenoscopy (EGD) History of tooth extraction History of phacoemulsification of cataract of both eyes with intraocular lens implantation Hx of cholecystectomy History of thyroidectomy, subtotal History of colonoscopy Family History Grandmother (Paternal) Cardiomegaly Father Suicide Hypertension Aunt Scleroderma Mother Suicide Brother Family history of diabetes mellitus at age 34 Prostate cancer Other No family history of adverse response to anesthesia Denies family history of Ovarian cancer Myocardial infarction Breast cancer Colorectal cancer Social History (Updated 04/14/25 @ 04:02 by Guanako Nova MD) Smoking Status: Never smoker Second Hand Exposure: No; Do You Dip or Chew Tobacco: No; Hx Alcohol Use: No Hx Substance Use: No Preferred Language: French Communication Ability: Effective Visual Impairment: Partially Limited Hearing Ability: Use of Hearing Aid [employer] Required: No Beliefs That Will Affect Care: None marital status: / Current Living Situation: Family Current Living Situation Comment: lives with daughter current occupational status: retired How many Children do You have: 6 How many Children do You have Comment: 5 alive 1 Feels Safe at Home: Yes Childhood Exposure to Second-Hand Smoke: Yes Diet: low carbohydrate, low salt and regular caffeine: Yes during the past year weight has: remained stable Dental Care, Regularly: Yes Physical Activity Frequency: Does not Exercise Seatbelt Use: always Sunscreen Use: No Gender Identity: Female Assistive Devices: Glasses, Hearing Aid - Bilateral and Walker Review of Systems Review of Systems: gen - no fevers or chills; very poor po intake x 5-6 days eyes - no visual changes last 1-2 weeks HENT - no hearing changes last 1-2 weeks; no oral lesions; chronic rhinitis, but no URI CV - no chest pain; chronic LE edema b/l pulm - no dyspnea, no cough GI - nausea/vomiting/dry heaves; no abd pain; +constipation, but passing flatus; no diarrhea - no dysuria musculo - acute/chronic low back pain neuro - no headaches; acute/chronic right leg pain/sciatica symptoms (nerve pain travels into the right foot); minimal left leg symptoms; no seizure endo - no diabetes skin - no rash psych - no mental status changes Physical Exam Physical Exam: gen - lying in bed, awake, alert; uncomfortable due to back pain and right leg pain eyes - PERRL, no nystagmus HENT - MMM, no lesions skin - normal turgor, no rashes neck - no JVD heart - RRR, s1 s2, no murmur lungs - CTA b/l abd - mildly distended, BS+, NT, no HSM, otherwise soft ext - 1-2+ edema b/l feet & shins up to the knees; pulses b/l feet 2+ neuro - no facial droop; speech fluent/clear; no tremors; strength b/l arms 5/5 including handgrips; b/l leg flexion 5/5; right foot plantarflexion 5/5; dorsiflexion right foot 4/5; left foot dorsi/plantarflexion 5/5 psych - a/o x 3 Results & Data Results & Data Vital Signs (Past 12 Hours) Vital Signs Temp Pulse Pulse Resp BP BP Pulse Ox 04/13/25 15:00 67 14 192/83 H 98 04/13/25 14:18 65 04/13/25 14:13 97 04/13/25 13:53 62 18 188/82 H 97 04/13/25 12:37 36.8 C 65 18 161/73 H 96 O2 Del Method 04/13/25 15:00 Room Air 04/13/25 14:18 04/13/25 14:13 Room Air 04/13/25 13:53 Room Air 04/13/25 12:37 Room Air Laboratory Results Laboratory Results - last 24 hr 04/13/25 04/13/25 13:20 13:36 WBC 8.47 RBC 4.04 L Hgb 13.0 Hct 34.8 L MCV 86.1 MCH 32.2 MCHC 37.4 H RDW Std Deviation 33.9 L RDW Coeff of Sarah 10.9 L Plt Count 211 MPV 9.0 L Immature Gran % (Auto) 0.6 Neut % (Auto) 83.5 Lymph % (Auto) 11.1 [place] % (Auto) 4.5 Eos % (Auto) 0.2 Baso % (Auto) 0.1 Neut # (Auto) 7.07 H Lymph # (Auto) 0.94 L [place] # (Auto) 0.38 Eos # (Auto) 0.02 Baso # (Auto) 0.01 Immature Gran # (Auto) 0.05 Toxic Vacuolation 1+ Sodium 109 L* Potassium 3.9 Chloride 75 L Carbon Dioxide 23 Anion Gap 11 BUN 18 Creatinine 0.77 Est Cr Clr Drug Dosing Not Reportable eGFR 73.69 BUN/Creatinine Ratio 23.4 H Glucose 111 H Osmolality 232 L* Calcium 9.7 Total Bilirubin 1.5 H AST 33 ALT 17 Alkaline Phosphatase 61 Total Protein 7.7 Albumin 4.5 Globulin 3.2 Albumin/Globulin Ratio 1.4 Lipase 11 Random Cortisol 27.16 Urine Color Yellow Urine Appearance Cloudy A Urine pH 7.0 Ur Specific [place] 1.013 Urine Protein 1+ H Urine Glucose (UA) Negative Urine Ketones 1+ H Urine Blood Negative Urine Nitrite Negative Urine Bilirubin Negative Urine Urobilinogen Negative Ur Leukocyte Esterase 1+ H Urine WBC (Auto) 0-5 Urine RBC (Auto) 0-2 U Hyaline Cast (Auto) 0-2 U Epithel Cells (Auto) 0-2 Urine Bacteria (Auto) 4+ H Urine Osmolality 474 L Urine Sodium 103 Urine Potassium 37.2 Urine Chloride 91 Diagnostic Findings KUB X-Ray 04/13/25 14:05 KUB HISTORY: constipation COMPARISON STUDY: 04/11/2025 FINDINGS: There is mild to moderate retained stool. No bowel obstruction seen. No gross free air. Stable scoliosis. IMPRESSION: No acute findings. ACT 112: Negative or not required by law. The above report was generated using voice recognition software. It may contain grammatical, syntax or spelling errors. Electronically signed by: Jasen Pandya M.D. 04/13/2025 2:54 PM Code Status & VTE Plan Code Status DNR/DNI Critical Care Time Critical Care Time: Yes Total Critical Care Time: 75 PG Care Time/CCT Total # of Minutes Spent Total Time Spent with Patient: Total time spent is greater than 50% in coordination of care (as documented) at patient's floor/unit and/or counseling patient: Critical Care Time: Yes Total Critical Care Time: 75 Coding Level of Care Code None Diagnoses Hyponatremia E87.1 Degenerative lumbar spinal stenosis M48.061 Lumbar back pain with radiculopathy affecting right lower extremity M54.16 Right foot drop M21.371 Constipation K59.00 Primary hypertension I10 Hypertension type: primary hypertension Hypothyroidism E03.9 Left bundle branch block I44.7 Acid reflux disease K21.9 Hernia, mesocolon K45.8 Additional Codes Critical Care Time - Critical Care Time: Yes ([id number]) (6) Hypertension Hypertension type: primary hypertension Qualified Code(s): I10 - Essential (primary) hypertension
[2025-04-13] MEDS: HYDROCODONE/ACETAMINOPHEN 7.5/325MG TAB PO STA (16:36)
[2025-04-13 17:11] LABS: Anion Gap 9.0 (3-11); Blood Urea Nitrogen 18.0 mg/dl (6-23); Calcium 9.0 mg/dl (8.6-10.3); Carbon Dioxide 26.0 mmol/L (21-32); Chloride 76.0 mmol/L (98-107); Creatinine Clr Calc Pharmacy 54.4 ml/min; Glucose 111.0 mg/dl (70-99(Fasting)); Potassium 3.8 mmol/L (3.5-5.1); Sodium 111.0 mmol/L (136-145)
[2025-04-13] MEDS: STAT IV/IM STA ×2 (17:55)
--- NOTE | 2025-04-13 19:36 | Critical Care Consultation ---
Date of Consultation April 13, 2025 Assessment & Plan (1) Constipation: (2) Lumbar back pain with radiculopathy affecting right lower extremity: Plan Addendum 0445: Na remains stable at 110. Finally made urine, estimated > 250cc. Urine pale in color. Place stacy for accurate I/Os to avoid overcorrection as she starts to make urine. Hypovolemic hyponatremia with active renal sodium wasting remains on differential as well as SIADH. BP on lower side. AM antihypertensives will be held. Consider salt tabs vs. trial of NSS. Repeat BMP pending. 529: Repeat Na 112. UOP 450cc from stacy. Continue frequent checks and allow for auto-correction within 8mmol/day. DDAVP clamp if needed. Reason Critically Ill: 1. Severe hyponatremia, likely multifactorial, currently asymptomatic 2. Constipation Neuro - [facility] ICU: Negative RASS GOAL 0 APAP PRN Cardiac - No acute concerns MAP goal > 65mmHg ASA, statin Restart Norvasc, benazepril in AM Respiratory - No acute concerns SpO2 goal > 92% IS/Flutter GI - Diet: Strict NPO SUP: Home PPI Bowel regimen: Miralax, Senokot in AM Zofran PRN RENAL/LYTES - Hold on further hypertonic therapy unless symptomatic, allow patient to self- correct Frequent Na checks overnight, monitor for overcorrection and manage as needed with DDAVP clamp Replete electrolytes as indicated, remain mindful KCl will correct Na as well Hold furosemide and HCTZ Closely monitor I/Os Maintain net even to net negative ENDO - TSH in AM, restart Levoxyl BG 140-180 per SCCM guidelines ISS if needed while inpatient HEME - No acute concerns ID - Empiric ceftriaxone for UTI ordered by primary. Patient is asymptomatic, could consider discontinuing given asymptomatic bacteruria UCx and BCx x2 pending, MRSA nares pending, procalcitonin added LINES/TUBES/DRAINS - PIV x2 DVT PROPHYLAXIS - Enoxaparin CODE STATUS - DNR/DNI DISPOSITION - ICU I have personally spent 36 minutes of critical care time in the direct management of this patient. This is a life/limb threatening event. This includes time spent evaluating patient, direct bedside care, chart review, placing orders, interpretation of diagnostic studies, discussion with consultants, patient, and family members, as well as other required patient management activities. This time is exclusive of all separately billable procedures, and teaching time and separate from and in addition to any other critical care service time. Thank you for allowing us to participate in the care of this patient. Please refer to my attending physician's documentation for any further recommendations. History of Present Illness Reason for Consultation: Hyponatremia Requesting Physician: Rohini Attending Physician: Rohini History of Present Illness Ms. Lydia Gonzalez is an 89YOF with a history of osteoarthritis, spinal stenosis, hearing loss, hypertension, hyperlipidemia, venous insufficiency, hypothyroidism, hyponatremia who was admitted to [facility] after presenting with approximately 1 week of poor PO intake, constipation as well as 1 day of nausea with vomiting. She was found to have severe hyponatremia with Na 111. Reports daily HCTZ, recent furosemide intake. Work-up points to hypovolemic vs euvolemic hyponatremia. History points to hypovolemic etiology. Cortisol 27, TSH WNL 2 weeks ago. Received 100mL 3% NaCl x2 in ED. Empiric ceftriaxone, Ofirmev, and Zofran given. Admitted to ICU for continuation of care. Patient seen in ICU 107. She is AAOx3. No acute distress. AF. Hemodynamically stable. Saturating well on room air. No further nausea or vomiting since arrival to hospital. Denies discomfort at this time. No UTI sx. Allergies Allergy/AdvReac Type Severity Reaction Status Date / Time metoclopramide Allergy Severe tardive Verified 04/13/25 15:06 dyskinesia meloxicam Allergy Intermediate GI SYMPTOMS Verified 04/13/25 15:06 sulfamethoxazole Allergy Intermediate GI SYMPTOMS Verified 04/13/25 15:06 trimethoprim Allergy Intermediate GI SYMPTOMS Verified 04/13/25 15:06 Home Medications Medication Instructions Recorded Confirmed Type acetaminophen 500 mg tablet 1,000 mg PO DIRECTED PRN fever 02/22/19 04/13/25 History or pain ascorbic acid (vitamin C) 500 mg 500 mg PO QAM 02/22/19 04/13/25 History tablet calcium 600 mg (as 1 tab PO DAILY 02/22/19 04/13/25 History carbonate)-vitamin D3 5 mcg (200 unit) tablet fluticasone propionate 50 2 sprays intranasal DAILY PRN 02/22/19 04/13/25 History mcg/actuation nasal Allergy Symptoms #1 g spray,suspension cyanocobalamin (vitamin B-12) 1,000 mcg PO DAILY #30 tabs 11/25/22 04/13/25 Rx 1,000 mcg tablet aspirin 81 mg tablet,delayed 81 mg PO 3XWK 05/25/24 04/13/25 History release (Crystal Low Dose Aspirin) cranberry 500 mg capsule 500 mg PO 3XWK 05/25/24 04/13/25 History glucosamine sulfate 500 mg capsule 500 mg PO DAILY 05/25/24 04/13/25 History omeprazole 40 mg capsule,delayed 40 mg PO DAILY #90 caps 08/02/24 04/13/25 Rx release potassium chloride 10 mEq 10 meq PO 3XWK #36 tabs 09/14/24 04/13/25 Rx tablet,extended release nitroglycerin 0.4 mg sublingual 0.4 mg sublingual Q5M PRN Angina 11/16/24 04/13/25 Rx tablet #20 tabs triamterene 37.5 1 tab PO DAILY #90 tabs 12/20/24 04/13/25 Rx mg-hydrochlorothiazide 25 mg tablet furosemide 20 mg tablet (Lasix) 20 mg PO DAILY #30 tabs 02/14/25 04/13/25 Rx simvastatin 20 mg tablet 20 mg PO DAILY #90 tabs 03/04/25 04/13/25 Rx amlodipine 5 mg tablet 5 mg PO DAILY #90 tabs 03/08/25 04/13/25 Rx levothyroxine 25 mcg tablet 25 mcg PO DAILY #90 tabs 03/08/25 04/13/25 Rx benazepril 40 mg tablet 40 mg PO QAM #90 tabs 03/14/25 04/13/25 Rx tizanidine 2 mg tablet 2 mg PO Q8H PRN muscle spasticity 03/14/25 04/13/25 Rx #90 tabs ondansetron 4 mg disintegrating 4 mg PO Q8H PRN nausea and 04/08/25 04/13/25 Rx tablet vomiting #12 tabs oxycodone 5 mg tablet 5 mg PO Q4H PRN pain #15 tabs 04/08/25 04/13/25 Rx clonazepam 0.5 mg tablet 0.5 mg PO HS anxiety 04/13/25 04/13/25 History lidocaine 4 % topical patch 1 patch topical DAILY PRN pain 04/13/25 04/13/25 History Patient History Medical History (Updated 04/14/25 @ 04:10 by Guanako Nova MD) Acid reflux disease Psoriasis Rheumatoid arthritis Vitamin D deficiency Anxiety Diastolic dysfunction Hearing deficit Hyperlipidemia Hyperplastic polyps of stomach Hyponatremia Scoliosis Left bundle branch block Idiopathic peripheral neuropathy Generalized osteoarthritis of multiple sites Paroxysmal atrial tachycardia History of colon polyps Hypothyroidism Hypertension Lumbar spinal stenosis Lumbar radiculopathy, right 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 Age related osteoporosis Wears hearing aid in both ears Osteoarthritis History of gastric polyp Hyperlipidemia Left bundle branch block Peripheral neuropathy Surgical History History of dilatation and curettage History of open reduction and internal fixation (ORIF) procedure 1985 left--hardware removed History of esophagogastroduodenoscopy (EGD) History of tooth extraction History of phacoemulsification of cataract of both eyes with intraocular lens implantation Hx of cholecystectomy History of thyroidectomy, subtotal History of colonoscopy Family History Grandmother (Paternal) Cardiomegaly Father Suicide Hypertension Aunt Scleroderma Mother Suicide Brother Family history of diabetes mellitus at age 34 Prostate cancer Other No family history of adverse response to anesthesia Denies family history of Ovarian cancer Myocardial infarction Breast cancer Colorectal cancer Social History (Updated 04/14/25 @ 04:02 by Guanako Nova MD) Smoking Status: Never smoker Second Hand Exposure: No; Do You Dip or Chew Tobacco: No; Hx Alcohol Use: No Hx Substance Use: No Preferred Language: Icelandic Communication Ability: Effective Visual Impairment: Partially Limited Hearing Ability: Use of Hearing Aid Check Out Cashier Required: No Beliefs That Will Affect Care: None marital status: / Current Living Situation: Family Current Living Situation Comment: lives with daughter current occupational status: retired How many Children do You have: 6 How many Children do You have Comment: 5 alive 1 Other Information That Helps Us Care for You: No Feels Safe at Home: Yes Safety Concerns: Feels Safe At This Time Childhood Exposure to Second-Hand Smoke: Yes Diet: low carbohydrate, low salt and regular caffeine: Yes during the past year weight has: remained stable Dental Care, Regularly: Yes Physical Activity Frequency: Does not Exercise Seatbelt Use: always Sunscreen Use: No Gender Identity: Female Assistive Devices: Glasses, Hearing Aid - Bilateral and Walker Review of Systems Review of Systems: All systems reviewed & are unremarkable except as noted in Subjective Physical Exam Constitutional: well developed, well nourished, + frail appearing and comfortable; no acute distress Eyes: PERRL, conjunctivae normal, anicteric sclerae ENMT: external ear and nose normal, oropharynx normal Neck: trachea midline, no thyromegaly Respiratory: normal respiratory effort, lungs clear to auscultation Cardiovascular: Rate/Rhythm: regular rate and regular rhythm Heart Sounds: + murmur Vessels: no JVD Extremities: normal capillary refill; no edema Gastrointestinal (Abdomen): normal bowel sounds, soft, nontender, no hepatosplenomegaly Musculoskeletal: no cyanosis or clubbing, extremities motor strength 5/5 Skin: no rashes, warm and dry Neurologic: PERRL, EOMI, accommodation nl, no face palsy, no dysarthria Genitourinary: Deferred Results & Data Results & Data Vital Signs (Past 12 Hours) Vital Signs Temp Pulse Pulse Resp BP BP Pulse Ox 04/13/25 19:00 58 L 18 137/66 97 04/13/25 18:27 57 L 04/13/25 17:00 61 18 146/96 H 97 04/13/25 15:00 67 14 192/83 H 98 04/13/25 14:18 65 04/13/25 14:13 97 04/13/25 13:53 62 18 188/82 H 97 04/13/25 12:37 36.8 C 65 18 161/73 H 96 O2 Del Method 04/13/25 19:00 Room Air 04/13/25 18:27 04/13/25 17:00 Room Air 04/13/25 15:00 Room Air 04/13/25 14:18 04/13/25 14:13 Room Air 04/13/25 13:53 Room Air 04/13/25 12:37 Room Air Laboratory Results Reviewed Diagnostic Findings Reviewed Medications Administered See MAR Coding Level of Care Code 42713 IN/OBS CONSULT LVL 2,35M Diagnoses Constipation K59.00 Lumbar back pain with radiculopathy affecting right lower extremity M54.16 Time Spent (min) 36
[2025-04-13] MEDS ORDERED: NITROGLYCERIN SL 0.4 MG/TAB TAB SL PRN (20:26)
[2025-04-13] MEDS ORDERED: ALUMINUM/MAGNESIUM/SIMETH (MAALOX MAX) 30 ML UDC PO PRN (20:26)
[2025-04-13] MEDS ORDERED: LIDOCAINE 5% 1 PATCH TD PRN (20:50)
[2025-04-13] MEDS: SUCRALFATE 1 GM/10 ML UDC PO SCH (21:31)
[2025-04-13] MEDS: SENNA 8.6 MG TAB PO SCH (21:33)
[2025-04-13] MEDS: clonazePAM 0.5 MG TAB PO SCH (21:33)
[2025-04-13] MEDS: POTASSIUM CHLORIDE / WTR 10 MEQ/100 ML PLCT IV SCH (22:27)
[2025-04-13] MEDS: ONDANSETRON INJ 2 MG/ML 2 ML VIAL IV PRN (23:09)
[2025-04-13] MEDS: POTASSIUM CHLORIDE CRTAB 20 MEQ TABCR PO STA (23:11)
[2025-04-13] MEDS: HYDROCODONE/ACETAMINOPHEN 7.5/325MG TAB PO PRN (23:13)
[2025-04-14] MEDS: POTASSIUM CHLORIDE 20 MEQ/15 ML UDC PO STA (00:45)
[2025-04-14 01:10] LABS: Anion Gap 10.0 (3-11); Blood Urea Nitrogen 21.0 mg/dl (6-23); Calcium 8.7 mg/dl (8.6-10.3); Carbon Dioxide 22.0 mmol/L (21-32); Chloride 78.0 mmol/L (98-107); Creatinine Clr Calc Pharmacy 48.8 ml/min; Glucose 103.0 mg/dl (70-99(Fasting)); Potassium 3.8 mmol/L (3.5-5.1); Sodium 110.0 mmol/L (136-145)
[2025-04-14 05:13] LABS: Hematocrit (blood only) 34.5 % (37.0-47.0); Hemoglobin 12.6 g/dl (12.0-16.0); Immature Granulocytes # (auto) 0.06 K/uL (0.01-0.20); Immature Granulocytes % (auto) 0.7 %; Mean Corpuscular Hemoglobin 32.1 pg (25.0-34.0); Mean Corpuscular Volume 88.0 fL (80.0-100.0); Platelet Count 183 K/uL (130-400); RDW Standard Deviation 35.6 fL (36.4-46.3); Red Blood Count 3.92 M/uL (4.20-5.40); White Blood Count 8.63 K/ul (4.8-10.8)
[2025-04-14 05:35] LABS: Anion Gap 10.0 (3-11); Blood Urea Nitrogen 23.0 mg/dl (6-23); Calcium 9.1 mg/dl (8.6-10.3); Carbon Dioxide 25.0 mmol/L (21-32); Chloride 77.0 mmol/L (98-107); Creatinine Clr Calc Pharmacy 36.6 ml/min; Glucose 102.0 mg/dl (70-99(Fasting)); Magnesium 1.6 mg/dl (1.7-2.4); Potassium 4.1 mmol/L (3.5-5.1); Sodium 112.0 mmol/L (136-145)
[2025-04-14 05:59] LABS: Thyroid Stimulating Hormone 3.019 uIu/ml (0.300-4.500)
[2025-04-14] MEDS: MAGNESIUM SULFATE / D5W 1 GM/100 ML BAG IV SCH (06:24)
[2025-04-14] MEDS: CYANOCOBALAMIN (B-12) 500 MCG TABLET PO SCH (08:27)
[2025-04-14] MEDS: LEVOTHYROXINE SODIUM 25 MCG TABLET PO SCH (08:27)
[2025-04-14] MEDS: SIMVASTATIN 20 MG TAB PO SCH (08:28)
[2025-04-14] MEDS: FLUTICASONE PROPIONATE NA SPR 16 GM BTL SCH (08:28)
[2025-04-14] MEDS: POLYETHYLENE (MIRALAX) 17 GM PACK PO SCH (08:32)
[2025-04-14] MEDS: ACETAMINOPHEN 500 MG TAB PO PRN (08:32)
[2025-04-14] MEDS ORDERED: ENALAPRIL MALEATE 10 MG TAB PO SCH (09:00)
[2025-04-14] MEDS: FUROSEMIDE INJ 20 MG/2 ML VIAL IV ONE ×2 (10:26→21:06)
--- NOTE | 2025-04-14 11:13 | Critical Care Progress Note ---
Date of Service April 14, 2025 Assessment & Plan (1) Hyponatremia: (2) Dyspnea on exertion: (3) Anxiety: (4) Low back pain: (5) Acid reflux disease: Plan Ms. Lydia Gonzalez is an 89YOF with a history of osteoarthritis, spinal stenosis, hearing loss, hypertension, hyperlipidemia, venous insufficiency, hypothyroidism, hyponatremia who was admitted to [facility] after presenting with approximately 1 week of poor PO intake, constipation as well as 1 day of nausea with vomiting. She was found to have severe hyponatremia with Na 111. Neuro - [facility] ICU: Negative RASS GOAL 0 APAP PRN Asymptomatic Cardiac - No acute concerns MAP goal > 65mmHg ASA, statin Restart Norvasc, benazepril Respiratory - No acute concerns SpO2 goal > 92% IS/Flutter GI - Diet: Regular diet ordered. Nutrition consulted. SUP: Home PPI Bowel regimen: Miralax, Senokot in AM Zofran PRN RENAL/LYTES - Hold on further hypertonic therapy unless symptomatic. Frequent Na checks overnight, monitor for overcorrection and manage as needed with DDAVP clamp Replete electrolytes as indicated, remain mindful KCl will correct Na as well Will give furosemide x 1 dose and start NaCl 2 grams TID Closely monitor I/Os Maintain net even to net negative ENDO - TSH WNL, restart Levoxyl BG 140-180 per SCCM guidelines ISS if needed while inpatient HEME - No acute concerns ID - Empiric ceftriaxone discontinued as patient likely has asymptomatic bacteruria. UCx and BCx x2 pending, MRSA nares pending, procalcitonin added LINES/TUBES/DRAINS - PIV x2 DVT PROPHYLAXIS - Enoxaparin CODE STATUS - DNR/DNI DISPOSITION - ICU I have personally spent 40 minutes of critical care time in the direct m anagement of this patient. This is a life/limb threatening event. This includes time spent evaluating patient, direct bedside care, chart review, placing orders, interpretation of diagnostic studies, discussion with consultants, patient, and family members, as well as other required patient management activities. This time is exclusive of all separately billable procedures, and teaching time and separate from and in addition to any other critical care service time. Thank you for allowing us to participate in the care of this patient. Please refer to my attending physician's documentation for any further recommendations. Admission and Anticipated Discharge Date Admission Date: April 13, 2025 Supervising Physician Co-Signing Physician Notes I have personally evaluated and examined this patient. I agree with assessment and plan of Sanfodr CEBALLOS. Patient asymptomatic. Continue close monitoring of sodium. Etiology is likely multifactorial, increasing solute intake. Patient's biggest complaint is constipation, will add surfactant laxative Subjective Patient neuro intact with no signs of cerebral edema. Na remains at 112 on recheck. Will give a dose of lasix and start 2 grams TID of NaCl per Nephro recs. Nutrition consulted. Review of Systems Review of Systems: All systems reviewed & are unremarkable except as noted in HPI & below Physical Exam Physical Exam: VITALS: Reviewed. WEIGHT/BMI reviewed. GEN: Stated age appearing. well-developed, NAD. PSYCH: Good Judgment. AOx3. Normal memory, mood, and affect. HEENT -Head: NC/AT; -Eyes: PERRL, EOMI. No discharge or redn ess; -Ears: External ears are normal. -Nose: Normal nares. -Mouth and throat: MMM. Normal gums, muc tc, palate. NECK: Supple, with no masses. CV: RRR, no m/r/g. LUNGS: CTAB, no w/r/c. ABD: Soft, NT/ND, NBS, no masses or organomegaly. : Clay draining yellow concentrated urine. SKIN: Warm, well perfused. No skin rashes or abnormal lesions. MSK: No deformities, Normal gait. EXT: No clubbing, cyanosis, or edema. NEURO: Normal muscle strength and tone. No focal deficits. Results & Data Results & Data Vital Signs (Past 12 Hours) Vital Signs Pulse Resp BP Pulse Ox 04/14/25 10:15 44 L 13 94 04/14/25 10:03 46 L 13 96 04/14/25 10:00 121/68 04/14/25 09:57 51 L 22 96 04/14/25 09:51 51 L 15 96 04/14/25 09:30 63 16 96 04/14/25 09:24 56 L 12 97 04/14/25 09:00 48 L 17 93 04/14/25 09:00 129/54 L 04/14/25 09:00 129/54 L 04/14/25 08:30 58 L 22 97 04/14/25 08:09 59 L 20 96 04/14/25 08:01 156/64 H 04/14/25 07:57 55 L 16 98 04/14/25 07:51 57 L 16 98 04/14/25 07:00 153/56 H 04/14/25 07:00 54 L 18 96 04/14/25 06:33 53 L 15 97 04/14/25 06:00 65 17 04/14/25 06:00 126/63 04/14/25 05:03 52 L 19 98 04/14/25 05:00 127/66 04/14/25 04:54 53 L 14 97 04/14/25 04:18 55 L 12 97 04/14/25 04:00 93/46 L 04/14/25 03:57 47 L 16 96 04/14/25 03:06 51 L 12 95 04/14/25 03:00 96/50 L 04/14/25 01:57 55 L 11 L 95 04/14/25 01:36 51 L 13 94 04/14/25 01:07 54 L 14 90/51 L 94 04/14/25 00:21 60 14 109/68 96 04/13/25 23:13 124/101 H 04/13/25 23:12 69 14 96 Critical Care Results & Data Vital Signs (Past 12 Hours) Vital Signs Pulse Resp BP Pulse Ox 04/14/25 10:15 44 L 13 94 04/14/25 10:03 46 L 13 96 04/14/25 10:00 121/68 04/14/25 09:57 51 L 22 96 04/14/25 09:51 51 L 15 96 04/14/25 09:30 63 16 96 04/14/25 09:24 56 L 12 97 04/14/25 09:00 48 L 17 93 04/14/25 09:00 129/54 L 04/14/25 09:00 129/54 L 04/14/25 08:30 58 L 22 97 04/14/25 08:09 59 L 20 96 04/14/25 08:01 156/64 H 04/14/25 07:57 55 L 16 98 04/14/25 07:51 57 L 16 98 04/14/25 07:00 153/56 H 04/14/25 07:00 54 L 18 96 04/14/25 06:33 53 L 15 97 04/14/25 06:00 65 17 04/14/25 06:00 126/63 04/14/25 05:03 52 L 19 98 04/14/25 05:00 127/66 04/14/25 04:54 53 L 14 97 04/14/25 04:18 55 L 12 97 04/14/25 04:00 93/46 L 04/14/25 03:57 47 L 16 96 04/14/25 03:06 51 L 12 95 04/14/25 03:00 96/50 L 04/14/25 01:57 55 L 11 L 95 04/14/25 01:36 51 L 13 94 04/14/25 01:07 54 L 14 90/51 L 94 04/14/25 00:21 60 14 109/68 96 Lab & Micro Results (Past 24 Hours) RBC 3.92 M/uL (4.20-5.40) L 04/14/25 WBC 8.63 K/ul (4.8-10.8) 04/14/25 Hgb 12.6 g/dl (12.0-16.0) 04/14/25 Hct 34.5 % (37.0-47.0) L 04/14/25 MCV 88.0 fL (80.0-100.0) 04/14/25 MCH 32.1 pg (25.0-34.0) 04/14/25 MCHC 36.5 g/dL (32.0-36.0) H 04/14/25 RDW Standard Deviation 35.6 fL (36.4-46.3) L 04/14/25 RDW Coefficient of Variation 11.2 % (11.5-14.5) L 04/14/25 Plt Count 183 K/uL (130-400) 04/14/25 MPV 9.0 fL (9.4-12.4) L 04/14/25 Neutrophils (%) (Auto) 68.8 % 04/14/25 Lymphocytes (%) (Auto) 22.6 % 04/14/25 Monocytes # (Auto) 0.60 K/uL (0.11-0.59) H 04/14/25 Eosinophils # (Auto) 0.07 K/uL (0.00-0.50) 04/14/25 Immature Granulocyte % (Auto) 0.7 % 04/14/25 Neutrophils # (Auto) 5.94 K/uL (1.40-6.50) 04/14/25 Lymphocytes # (Auto) 1.95 K/uL (1.20-3.40) 04/14/25 Monocytes # (Auto) 0.60 K/uL (0.11-0.59) H 04/14/25 Eosinophils # (Auto) 0.07 K/uL (0.00-0.50) 04/14/25 Basophils # (Auto) 0.01 K/uL (0.00-0.20) 04/14/25 Immature Granulocyte # (Auto) 0.06 K/uL (0.01-0.20) 5 Na 112 mmol/L (136-145) L* 04/14/25 K 4.1 mmol/L (3.5-5.1) 04/14/25 Cl 77 mmol/L (98-107) L 04/14/25 CO2 25 mmol/L (21-32) 04/14/25 Anion Gap 10 (3-11) 04/14/25 BUN 23 mg/dl (6-23) 04/14/25 Creatinine 1.04 mg/dl (0.6-1.2) 04/14/25 BUN/Creatinine Ratio 22.1 (10-20) H 04/14/25 Glu 102 mg/dl (70-99(Fasting)) H 04/14/25 Ca 9.1 mg/dl (8.6-10.3) 04/14/25 Phosphorus Level 3.7 mg/dl (2.5-4.9) 04/14/25 Mg 1.6 mg/dl (1.7-2.4) L 04/14/25 04:45 Calcium Level 9.1 mg/dl (8.6-10.3) 04/14/25 04:45 Diagnostic Findings (Past 24 Hours) KUB X-Ray 04/13/25 14:05 KUB HISTORY: constipation COMPARISON STUDY: 04/11/2025 FINDINGS: There is mild to moderate retained stool. No bowel obstruction seen. No gross free air. Stable scoliosis. IMPRESSION: No acute findings. ACT 112: Negative or not required by law. The above report was generated using voice recognition software. It may contain grammatical, syntax or spelling errors. Electronically signed by: Jasen Pandya M.D. 04/13/2025 2:54 PM I & O Totals 24 Hours 04/13/25 04/14/25 04/15/25 06:59 06:59 06:59 Intake Total 370.834 / 370.834 199.167 / 199.167 Output Total 450 / 450 Balance -79.166 / -79.166 199.167 / 199.167 Cumulative 04/13/25 12:33 thru 04/14/25 10:23 Intake Total 570.001 Output Total 450 Balance 120.001 RT Ventilator Mngmt (Last Documented) Ventilator Ordered Settings Respiratory Rate 13 04/14/25 10:15 Ventilator - PT Measurements Respiratory Rate 13 Coding Level of Care Code 18521 CRITICAL CARE 1ST 30-74M Diagnoses Hyponatremia E87.1 Dyspnea on exertion R06.09 Anxiety F41.9 Low back pain M54.50 Acid reflux disease K21.9
--- NOTE | 2025-04-14 11:36 | Nephrology Consultation ---
Date of Consultation April 14, 2025 Assessment & Plan (1) Hyponatremia: * Hyponatremia. Patient appears euvolemic but has significant LE swelling. Suspect LE edema related to amlodipine therapy and venous insufficiency * Hyponatremia likely related to poor solute intake, thiazide diuretic therapy * Stop triamterene-HCTZ * Patient received 100 cc 3% NaCl x2. Serum Na has improved 3 mmol/L. She is asymptomatic and able to tolerate oral medication * High urine Na and Uosm > 200 suggestive of inappropriate free water conservation by kidneys * POC discussed w/ ICU team. Start NaCl 2g po TID, furosemide 20 mg daily * Monitor BMP (2) Hypertension: * BP is acceptable * Stop triamterene-HCTZ due to hyponatremia * Stop amlodipine due to LE swelling * Continue enalapril * Will schedule furosemide 20 mg daily History of Present Illness Reason for Consultation: Hyponatremia Attending Physician: Guanako Nova MD History of Present Illness Ms. Gonzalez is an 89 year old white female who is seen at the request of Dr. Cantu for evaluation of hyponatremia. Information for the HPI is obtained from direct patient interview and review of the EMR. HPI is summarized as follows: Ms. Gonzalez has not undergone nephrology evaluation in the past. Her baseline Cr has been 0.7-1.0. 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 Her serum sodium has ranged 127-135 mmol/L in the past. She has been taking triamterene-HCTZ for blood pressure management but over the last two weeks Ms. Gonzalez has experienced increasing LE swelling. She presented to [facility] E[facility] last evening and was found to have Na 109 mmol/L. 100 cc 3% NaCl IV was administered x2. Serum Na improved to 112 mmol/L and patient was admitted to the ICU for ongoing medical management. Allergies Allergy/AdvReac Type Severity Reaction Status Date / Time metoclopramide Allergy Severe tardive Verified 04/13/25 15:06 dyskinesia meloxicam Allergy Intermediate GI SYMPTOMS Verified 04/13/25 15:06 sulfamethoxazole Allergy Intermediate GI SYMPTOMS Verified 04/13/25 15:06 trimethoprim Allergy Intermediate GI SYMPTOMS Verified 04/13/25 15:06 Home Medications Medication Instructions Recorded Confirmed Type acetaminophen 500 mg tablet 1,000 mg PO DIRECTED PRN fever 02/22/19 04/13/25 History or pain ascorbic acid (vitamin C) 500 mg 500 mg PO QAM 02/22/19 04/13/25 History tablet calcium 600 mg (as 1 tab PO DAILY 02/22/19 04/13/25 History carbonate)-vitamin D3 5 mcg (200 unit) tablet fluticasone propionate 50 2 sprays intranasal DAILY PRN 02/22/19 04/13/25 History mcg/actuation nasal Allergy Symptoms #1 g spray,suspension cyanocobalamin (vitamin B-12) 1,000 mcg PO DAILY #30 tabs 11/25/22 04/13/25 Rx 1,000 mcg tablet aspirin 81 mg tablet,delayed 81 mg PO 3XWK 05/25/24 04/13/25 History release (Crystal Low Dose Aspirin) cranberry 500 mg capsule 500 mg PO 3XWK 05/25/24 04/13/25 History glucosamine sulfate 500 mg capsule 500 mg PO DAILY 05/25/24 04/13/25 History omeprazole 40 mg capsule,delayed 40 mg PO DAILY #90 caps 08/02/24 04/13/25 Rx release potassium chloride 10 mEq 10 meq PO 3XWK #36 tabs 09/14/24 04/13/25 Rx tablet,extended release nitroglycerin 0.4 mg sublingual 0.4 mg sublingual Q5M PRN Angina 11/16/24 04/13/25 Rx tablet #20 tabs triamterene 37.5 1 tab PO DAILY #90 tabs 12/20/24 04/13/25 Rx mg-hydrochlorothiazide 25 mg tablet furosemide 20 mg tablet (Lasix) 20 mg PO DAILY #30 tabs 02/14/25 04/13/25 Rx simvastatin 20 mg tablet 20 mg PO DAILY #90 tabs 03/04/25 04/13/25 Rx amlodipine 5 mg tablet 5 mg PO DAILY #90 tabs 03/08/25 04/13/25 Rx levothyroxine 25 mcg tablet 25 mcg PO DAILY #90 tabs 03/08/25 04/13/25 Rx benazepril 40 mg tablet 40 mg PO QAM #90 tabs 03/14/25 04/13/25 Rx tizanidine 2 mg tablet 2 mg PO Q8H PRN muscle spasticity 03/14/25 04/13/25 Rx #90 tabs ondansetron 4 mg disintegrating 4 mg PO Q8H PRN nausea and 04/08/25 04/13/25 Rx tablet vomiting #12 tabs oxycodone 5 mg tablet 5 mg PO Q4H PRN pain #15 tabs 04/08/25 04/13/25 Rx clonazepam 0.5 mg tablet 0.5 mg PO HS anxiety 04/13/25 04/13/25 History lidocaine 4 % topical patch 1 patch topical DAILY PRN pain 04/13/25 04/13/25 History Patient History Medical History Acid reflux disease Psoriasis Rheumatoid arthritis Vitamin D deficiency Anxiety Diastolic dysfunction Hearing deficit Hyperlipidemia Hyperplastic polyps of stomach Hyponatremia Scoliosis Left bundle branch block Idiopathic peripheral neuropathy Generalized osteoarthritis of multiple sites Paroxysmal atrial tachycardia History of colon polyps Hypothyroidism Hypertension Lumbar spinal stenosis Lumbar radiculopathy, right 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 Age related osteoporosis Wears hearing aid in both ears Osteoarthritis History of gastric polyp Hyperlipidemia Left bundle branch block Peripheral neuropathy Surgical History History of dilatation and curettage History of open reduction and internal fixation (ORIF) procedure 1985 left--hardware removed History of esophagogastroduodenoscopy (EGD) History of tooth extraction History of phacoemulsification of cataract of both eyes with intraocular lens implantation Hx of cholecystectomy History of thyroidectomy, subtotal History of colonoscopy Family History Grandmother (Paternal) Cardiomegaly Father Suicide Hypertension Aunt Scleroderma Mother Suicide Brother Family history of diabetes mellitus at age 34 Prostate cancer Other No family history of adverse response to anesthesia Denies family history of Ovarian cancer Myocardial infarction Breast cancer Colorectal cancer Social History Smoking Status: Never smoker Second Hand Exposure: No; Do You Dip or Chew Tobacco: No; Hx Alcohol Use: No Hx Substance Use: No Preferred Language: Bhutanese Communication Ability: Effective Visual Impairment: Partially Limited Hearing Ability: Use of Hearing Aid Operational Risk Analyst Required: No Beliefs That Will Affect Care: None marital status: / Current Living Situation: Family Current Living Situation Comment: lives with daughter current occupational status: retired How many Children do You have: 6 How many Children do You have Comment: 5 alive 1 Other Information That Helps Us Care for You: No Feels Safe at Home: Yes Safety Concerns: Feels Safe At This Time Childhood Exposure to Second-Hand Smoke: Yes Diet: low carbohydrate, low salt and regular caffeine: Yes during the past year weight has: remained stable Dental Care, Regularly: Yes Physical Activity Frequency: Does not Exercise Seatbelt Use: always Sunscreen Use: No Gender Identity: Female Assistive Devices: Glasses, Hearing Aid - Bilateral and Walker Review of Systems Constitutional: no fever Eyes: no problem reported Ear, Nose, Mouth, Throat: no problem reported Respiratory: no dyspnea Cardiovascular: no chest pain Additional Comments: leg edema Gastrointestinal: no abdominal pain Physical Exam Constitutional: no acute distress Eyes: PERRL, conjunctivae normal, anicteric sclerae ENMT: external ear and nose normal, oropharynx normal Neck: trachea midline, no thyromegaly Respiratory: normal respiratory effort, lungs clear to auscultation Cardiovascular: Rate/Rhythm: + bradycardic Extremities: + edema (2+ LE edema) Gastrointestinal (Abdomen): normal bowel sounds, soft, nontender, no hepatosplenomegaly Neurologic: Speech / Cognition: normal speech and normal cognition Results & Data Vital Signs (Past 12 Hours) Vital Signs Pulse Resp BP Pulse Ox 04/14/25 10:15 44 L 13 94 04/14/25 10:03 46 L 13 96 04/14/25 10:00 121/68 04/14/25 09:57 51 L 22 96 04/14/25 09:51 51 L 15 96 04/14/25 09:30 63 16 96 04/14/25 09:24 56 L 12 97 04/14/25 09:00 48 L 17 93 04/14/25 09:00 129/54 L 04/14/25 09:00 129/54 L 04/14/25 08:30 58 L 22 97 04/14/25 08:09 59 L 20 96 04/14/25 08:01 156/64 H 04/14/25 07:57 55 L 16 98 04/14/25 07:51 57 L 16 98 04/14/25 07:00 153/56 H 04/14/25 07:00 54 L 18 96 04/14/25 06:33 53 L 15 97 04/14/25 06:00 65 17 04/14/25 06:00 126/63 04/14/25 05:03 52 L 19 98 04/14/25 05:00 127/66 04/14/25 04:54 53 L 14 97 04/14/25 04:18 55 L 12 97 04/14/25 04:00 93/46 L 04/14/25 03:57 47 L 16 96 04/14/25 03:06 51 L 12 95 04/14/25 03:00 96/50 L 04/14/25 01:57 55 L 11 L 95 04/14/25 01:36 51 L 13 94 04/14/25 01:07 54 L 14 90/51 L 94 04/14/25 00:21 60 14 109/68 96 Laboratory Results Laboratory Results WBC 8.63 K/ul (4.8-10.8) 04/14/25 04:45 RBC 3.92 M/uL (4.20-5.40) L 04/14/25 04:45 Hgb 12.6 g/dl (12.0-16.0) 04/14/25 04:45 Hct 34.5 % (37.0-47.0) L 04/14/25 04:45 MCV 88.0 fL (80.0-100.0) 04/14/25 04:45 MCH 32.1 pg (25.0-34.0) 04/14/25 04:45 MCHC 36.5 g/dL (32.0-36.0) H 04/14/25 04:45 RDW Std Deviation 35.6 fL (36.4-46.3) L 04/14/25 04:45 RDW Coeff of Sarah 11.2 % (11.5-14.5) L 04/14/25 04:45 Plt Count 183 K/uL (130-400) 04/14/25 04:45 MPV 9.0 fL (9.4-12.4) L 04/14/25 04:45 Immature Gran % (Auto) 0.7 % 04/14/25 04:45 Neut % (Auto) 68.8 % 04/14/25 04:45 Lymph % (Auto) 22.6 % 04/14/25 04:45 [place] % (Auto) 7.0 % 04/14/25 04:45 Eos % (Auto) 0.8 % 04/14/25 04:45 Baso % (Auto) 0.1 % 04/14/25 04:45 Neut # (Auto) 5.94 K/uL (1.40-6.50) 04/14/25 04:45 Lymph # (Auto) 1.95 K/uL (1.20-3.40) 04/14/25 04:45 [place] # (Auto) 0.60 K/uL (0.11-0.59) H 04/14/25 04:45 Eos # (Auto) 0.07 K/uL (0.00-0.50) 04/14/25 04:45 Baso # (Auto) 0.01 K/uL (0.00-0.20) 04/14/25 04:45 Immature Gran # (Auto) 0.06 K/uL (0.01-0.20) 04/14/25 04:45 Toxic Vacuolation 1+ 04/13/25 13:20 Sodium 112 mmol/L (136-145) L* 04/14/25 08:26 Potassium 4.1 mmol/L (3.5-5.1) 04/14/25 04:45 Chloride 77 mmol/L (98-107) L 04/14/25 04:45 Carbon Dioxide 25 mmol/L (21-32) 04/14/25 04:45 Anion Gap 10 (3-11) 04/14/25 04:45 BUN 23 mg/dl (6-23) 04/14/25 04:45 Creatinine 1.04 mg/dl (0.6-1.2) 04/14/25 04:45 Est Cr Clr Drug Dosing 36.6 ml/min 04/14/25 04:45 eGFR 51.38 04/14/25 04:45 BUN/Creatinine Ratio 22.1 (10-20) H 04/14/25 04:45 Glucose 102 mg/dl (70-99(Fasting)) H 04/14/25 04:45 POC Glucose 114 mg/dl (70-99) H 04/13/25 22:30 Osmolality 232 mOsm/kg (280-300) L* 04/13/25 13:20 Calcium 9.1 mg/dl (8.6-10.3) 04/14/25 04:45 Phosphorus 3.7 mg/dl (2.5-4.9) 04/14/25 04:45 Magnesium 1.6 mg/dl (1.7-2.4) L 04/14/25 04:45 Total Bilirubin 1.5 mg/dl (0.2-1.0) H 04/13/25 13:20 AST 33 U/L (13-39) 04/13/25 13:20 ALT 17 U/L (7-52) 04/13/25 13:20 Alkaline Phosphatase 61 U/L (34-104) 04/13/25 13:20 Total Protein 7.7 gm/dl (6.0-8.3) 04/13/25 13:20 Albumin 4.5 gm/dl (3.4-5.0) 04/13/25 13:20 Globulin 3.2 gm/dl (2.5-4.0) 04/13/25 13:20 Albumin/Globulin Ratio 1.4 (0.9-2) 04/13/25 13:20 Lipase 11 U/L (11-82) 04/13/25 13:20 TSH 3.019 uIu/ml (0.300-4.500) 04/14/25 04:45 Random Cortisol 27.16 mcg/dl 04/13/25 13:20 Urine Color Yellow 04/13/25 13:36 Urine Appearance Cloudy (Clear) A 04/13/25 13:36 Urine pH 7.0 (4.5-7.5) 04/13/25 13:36 Ur Specific [place] 1.013 (1.000-1.030) 04/13/25 13:36 Urine Protein 1+ (Negative) H 04/13/25 13:36 Urine Glucose (UA) Negative (Negative) 04/13/25 13:36 Urine Ketones 1+ (Negative) H 04/13/25 13:36 Urine Blood Negative (Negative) 04/13/25 13:36 Urine Nitrite Negative (Negative) 04/13/25 13:36 Urine Bilirubin Negative (Negative) 04/13/25 13:36 Urine Urobilinogen Negative (Negative) 04/13/25 13:36 Ur Leukocyte Esterase 1+ (Negative) H 04/13/25 13:36 Urine WBC (Auto) 0-5 /hpf (0-5) 04/13/25 13:36 Urine RBC (Auto) 0-2 /hpf (0-2) 04/13/25 13:36 U Hyaline Cast (Auto) 0-2 /lpf (0-2) 04/13/25 13:36 U Epithel Cells (Auto) 0-2 /hpf (0-2) 04/13/25 13:36 Urine Bacteria (Auto) 4+ (None Seen) H 04/13/25 13:36 Urine Osmolality 454 mOsm/kg (500-800) L 04/14/25 05:25 Urine Sodium 103 mmol/L 04/13/25 13:36 Urine Potassium 37.2 mmol/L 04/13/25 13:36 Urine Chloride 91 mmol/L 04/13/25 13:36 Urine Comment 04/13/25 13:36 Nasal Screen MRSA (PCR) Negative (Negative) 04/13/25 22:18 Impressions KUB X-Ray 04/13/25 14:05 KUB HISTORY: constipation COMPARISON STUDY: 04/11/2025 FINDINGS: There is mild to moderate retained stool. No bowel obstruction seen. No gross free air. Stable scoliosis. IMPRESSION: No acute findings. ACT 112: Negative or not required by law. The above report was generated using voice recognition software. It may contain grammatical, syntax or spelling errors. Electronically signed by: Jasen Pandya M.D. 04/13/2025 2:54 PM PG Care Time/CCT Total # of Minutes Spent Total Time Spent with Patient: Total time spent is greater than 50% in coordination of care (as documented) at patient's floor/unit and/or counseling patient: Coding Level of Care Code 06963 IN/OBS CONSULT LVL 5,80M Diagnoses Hyponatremia E87.1 Primary hypertension I10 Hypertension type: primary hypertension (2) Hypertension Hypertension type: primary hypertension Qualified Code(s): I10 - Essential (primary) hypertension
--- NOTE | 2025-04-14 14:04 | Hospitalist Progress Note ---
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 She was seen by her PCP on day of admission at the [place] office due to persistent nausea, dry heaves/vomiting, poor PO intake, right foot drop/right foot "dragging" when she walks, intractable right leg pain, and concerns for hernia that was seen on recent CT scan at [facility] on 04/11/25. When she presented to [facility] her sodium was found to be 109; about 1 week ago it was 130. #acute on chronic hyponatremia - -chronic hyponatremia (baseline low 130s) likely due to regular use of HCTZ and occasional lasix -acute hyponatremia seems temporarily related to very poor PO intake over the last week; this would suggest solute deficiency, but her urine Na level is high which argues against solute deficiency (her HCTZ use and recent lasix use, however, may have confounded the urine Na results); urine osm was high relative to serum osm, and remains high this am - suggestive of SIADH -BUN and Cr remain wnl -she remains euvolemic -LE edema is chronic; no signs of volume overload/CHF -recent steroid injection, vomiting, etc may also have contributed to acute hyponatremia -surprisingly, despite the acuity and the severity of her hyponatremia, she has not had mental status changes -fortunately no seizures either -s/p 3% saline boluses x 2 in the ER -now on NaCl tabs 2gm TID with low-dose lasix as recommended by Dr Montelongo from nephrology - appreciate his assistance -continue serial Na levels -cortisol level wnl -TSH level wnl -appreciate consultations by Dr Dumont and Dr Montelongo -cont to hold HCTZ #acute/chronic low back pain, RLE radicular pain, and new onset right foot drop - -once hyponatremia is improved and Na levels are more stable would obtain dedicated imaging of lumbar spine - r/o hematoma/other pathology that could have triggered worsening lumbar spine symptoms -as noted - she had an epidural steroid injection at L5-S1 on 04/05/25 by pain management -for acute pain - norco 7.5's prn; cont chronic zanaflex prn (chronic med for her) -of note - 04/11/25 CT a/p did not mention any significant abnormalities of the lumbar spine -fortunately the right foot drop IS much improved today #poor oral intake/anorexia, nausea/vomiting - -04/11 CT done at [facility] did not show signs of ileus or obstruction -KUB x-ray here without obstruction -LFTs, lipase wnl -UTI? -side effects from narcotics? -combination of factors? -CT did mention findings that could fit with gastritis; thus, increased PPI to twice daily (was taking QD at home) + added carafate 1gm QID -diet as tolerated #mesosigmoid colon hernia - -seen on CT a/p on 04/11/25 at outside hospital -no obstruction seen on that CT -this is a form of internal hernia -doubt contributing to current symptoms -informally d/w on-call general surgery on hospital day #1 - nothing to do at this time #hypothyroidism - -TSH wnl -cont synthroid #HTN - -uncontrolled initially but now improved; suspect 2nd to pain at ER presentation -defer Rx to ICU/nephrology #?UTI - -s/p rocephin in ER; will continue for now -urine cx with pinpoint growth - follow culture #GERD - -PPI twice daily -carafate QID -see above #DVT proph - -until dedicated imaging of lumbar spine has been completed (to r/o hematoma, etc) hold off on chemical DVT proph #LBBB - -chronic, no ischemic symptoms #constipation - -likely 2nd to narcotics over the last week for her back -senna + miralax; add additional agents as necessary -no obstruction on recent CT a/p or KUB daughters updated at bedside will d/w ICU about timing of lumbar spine imaging Admission and Anticipated Discharge Date Admission Date: April 13, 2025 Subjective patient was standing in the room with both daughters near her she had her walker in front of her as well she was awake/alert, said rob when I came into the room daughters feel she is doing better today patient herself reports ongoing pain in the proximal right thigh/groin but not as severe as a few days ago still no BM last passage of flatus - last pm still nauseous at times Review of Systems Review of Systems: CV - no chest pain pulm - no dyspnea GI - no vomiting, no abd pain Physical Exam Physical Exam: gen - looks better; standing with her walker, then sat back down with assistance; NAD HENT - MMM, no lesions neck - no JVD heart - RRR, s1 s2, no murmur lungs - CTA b/l abd - still mildly distended, BS+, NT, no HSM ext - 1-2+ edema b/l feet & shins up to the knees; pulses b/l feet 2+ neuro - b/l hip flexion 5/5; right foot plantarflexion 5/5; dorsiflexion right foot 4-5/5; left foot dorsi/plantarflexion 5/5; right leg extension 4-5/5; left leg extension 5/5 psych - a/o x 3 Results & Data Results & Data Vital Signs (Past 12 Hours) Vital Signs Pulse Resp BP Pulse Ox 04/14/25 10:15 44 L 13 94 04/14/25 10:03 46 L 13 96 04/14/25 10:00 121/68 04/14/25 09:57 51 L 22 96 04/14/25 09:51 51 L 15 96 04/14/25 09:30 63 16 96 04/14/25 09:24 56 L 12 97 04/14/25 09:00 48 L 17 93 04/14/25 09:00 129/54 L 04/14/25 09:00 129/54 L 04/14/25 08:30 58 L 22 97 04/14/25 08:09 59 L 20 96 04/14/25 08:01 156/64 H 04/14/25 07:57 55 L 16 98 04/14/25 07:51 57 L 16 98 04/14/25 07:00 153/56 H 04/14/25 07:00 54 L 18 96 04/14/25 06:33 53 L 15 97 04/14/25 06:00 65 17 07/31/25 06:00 126/63 04/14/25 05:03 52 L 19 98 04/14/25 05:00 127/66 04/14/25 04:54 53 L 14 97 04/14/25 04:18 55 L 12 97 04/14/25 04:00 93/46 L 04/14/25 03:57 47 L 16 96 04/14/25 03:06 51 L 12 95 04/14/25 03:00 96/50 L Laboratory Results Laboratory Results - last 48 hr 04/13/25 04/13/25 04/13/25 13:20 13:36 16:30 WBC 8.47 RBC 4.04 L Hgb 13.0 Hct 34.8 L MCV 86.1 MCH 32.2 MCHC 37.4 H RDW Std Deviation 33.9 L RDW Coeff of Sarah 10.9 L Plt Count 211 MPV 9.0 L Immature Gran % (Auto) 0.6 Neut % (Auto) 83.5 Lymph % (Auto) 11.1 [place] % (Auto) 4.5 Eos % (Auto) 0.2 Baso % (Auto) 0.1 Neut # (Auto) 7.07 H Lymph # (Auto) 0.94 L [place] # (Auto) 0.38 Eos # (Auto) 0.02 Baso # (Auto) 0.01 Immature Gran # (Auto) 0.05 Toxic Vacuolation 1+ Sodium 109 L* 111 L* Potassium 3.9 3.8 Chloride 75 L 76 L Carbon Dioxide 23 26 Anion Gap 11 9 BUN 18 18 Creatinine 0.77 0.70 Est Cr Clr Drug Dosing Not Reportable 54.4 eGFR 73.69 82.62 BUN/Creatinine Ratio 23.4 H 25.7 H Glucose 111 H 111 H POC Glucose Osmolality 232 L* Calcium 9.7 9.0 Phosphorus Magnesium Total Bilirubin 1.5 H AST 33 ALT 17 Alkaline Phosphatase 61 Total Protein 7.7 Albumin 4.5 Globulin 3.2 Albumin/Globulin Ratio 1.4 Lipase 11 TSH Random Cortisol 27.16 Urine Color Yellow Urine Appearance Cloudy A Urine pH 7.0 Ur Specific [place] 1.013 Urine Protein 1+ H Urine Glucose (UA) Negative Urine Ketones 1+ H Urine Blood Negative Urine Nitrite Negative Urine Bilirubin Negative Urine Urobilinogen Negative Ur Leukocyte Esterase 1+ H Urine WBC (Auto) 0-5 Urine RBC (Auto) 0-2 U Hyaline Cast (Auto) 0-2 U Epithel Cells (Auto) 0-2 Urine Bacteria (Auto) 4+ H Urine Osmolality 474 L Ur Random Sodium Urine Sodium 103 Urine Potassium 37.2 Urine Chloride 91 Urine Comment Nasal Screen MRSA (PCR) 04/13/25 04/13/25 04/13/25 20:39 22:18 22:30 WBC RBC Hgb Hct MCV MCH MCHC RDW Std Deviation RDW Coeff of Sarah Plt Count MPV Immature Gran % (Auto) Neut % (Auto) Lymph % (Auto) [place] % (Auto) Eos % (Auto) Baso % (Auto) Neut # (Auto) Lymph # (Auto) [place] # (Auto) Eos # (Auto) Baso # (Auto) Immature Gran # (Auto) Toxic Vacuolation Sodium 110 L* Potassium Chloride Carbon Dioxide Anion Gap BUN Creatinine Est Cr Clr Drug Dosing eGFR BUN/Creatinine Ratio Glucose POC Glucose 114 H Osmolality Calcium Phosphorus Magnesium Total Bilirubin AST ALT Alkaline Phosphatase Total Protein Albumin Globulin Albumin/Globulin Ratio Lipase TSH Random Cortisol Urine Color Urine Appearance Urine pH Ur Specific [place] Urine Protein Urine Glucose (UA) Urine Ketones Urine Blood Urine Nitrite Urine Bilirubin Urine Urobilinogen Ur Leukocyte Esterase Urine WBC (Auto) Urine RBC (Auto) U Hyaline Cast (Auto) U Epithel Cells (Auto) Urine Bacteria (Auto) Urine Osmolality Ur Random Sodium Urine Sodium Urine Potassium Urine Chloride Urine Comment Nasal Screen MRSA (PCR) Negative 04/14/25 04/14/25 04/14/25 00:17 04:45 05:25 WBC 8.63 RBC 3.92 L Hgb 12.6 Hct 34.5 L MCV 88.0 MCH 32.1 MCHC 36.5 H RDW Std Deviation 35.6 L RDW Coeff of Sarah 11.2 L Plt Count 183 MPV 9.0 L Immature Gran % (Auto) 0.7 Neut % (Auto) 68.8 Lymph % (Auto) 22.6 [place] % (Auto) 7.0 Eos % (Auto) 0.8 Baso % (Auto) 0.1 Neut # (Auto) 5.94 Lymph # (Auto) 1.95 [place] # (Auto) 0.60 H Eos # (Auto) 0.07 Baso # (Auto) 0.01 Immature Gran # (Auto) 0.06 Toxic Vacuolation Sodium 110 L* 112 L* Potassium 3.8 4.1 Chloride 78 L 77 L Carbon Dioxide 22 25 Anion Gap 10 10 BUN 21 23 Creatinine 0.78 1.04 Est Cr Clr Drug Dosing 48.8 36.6 eGFR 72.56 51.38 BUN/Creatinine Ratio 26.9 H 22.1 H Glucose 103 H 102 H POC Glucose Osmolality Calcium 8.7 9.1 Phosphorus 3.7 Magnesium 1.6 L Total Bilirubin AST ALT Alkaline Phosphatase Total Protein Albumin Globulin Albumin/Globulin Ratio Lipase TSH 3.019 Random Cortisol Urine Color Urine Appearance Urine pH Ur Specific [place] Urine Protein Urine Glucose (UA) Urine Ketones Urine Blood Urine Nitrite Urine Bilirubin Urine Urobilinogen Ur Leukocyte Esterase Urine WBC (Auto) Urine RBC (Auto) U Hyaline Cast (Auto) U Epithel Cells (Auto) Urine Bacteria (Auto) Urine Osmolality 454 L Ur Random Sodium 94 Urine Sodium Urine Potassium Urine Chloride Urine Comment Nasal Screen MRSA (PCR) 04/14/25 04/14/25 04/14/25 08:26 12:18 16:30 WBC RBC Hgb Hct MCV MCH MCHC RDW Std Deviation RDW Coeff of Sarah Plt Count MPV Immature Gran % (Auto) Neut % (Auto) Lymph % (Auto) [place] % (Auto) Eos % (Auto) Baso % (Auto) Neut # (Auto) Lymph # (Auto) [place] # (Auto) Eos # (Auto) Baso # (Auto) Immature Gran # (Auto) Toxic Vacuolation Sodium 112 L* 112 L* 111 L* Potassium Chloride Carbon Dioxide Anion Gap BUN Creatinine Est Cr Clr Drug Dosing eGFR BUN/Creatinine Ratio Glucose POC Glucose Osmolality Calcium Phosphorus Magnesium Total Bilirubin AST ALT Alkaline Phosphatase Total Protein Albumin Globulin Albumin/Globulin Ratio Lipase TSH Random Cortisol Urine Color Urine Appearance Urine pH Ur Specific [place] Urine Protein Urine Glucose (UA) Urine Ketones Urine Blood Urine Nitrite Urine Bilirubin Urine Urobilinogen Ur Leukocyte Esterase Urine WBC (Auto) Urine RBC (Auto) U Hyaline Cast (Auto) U Epithel Cells (Auto) Urine Bacteria (Auto) Urine Osmolality Ur Random Sodium Urine Sodium Urine Potassium Urine Chloride Urine Comment Nasal Screen MRSA (PCR) Microbiology 04/13/25 20:29 Blood Aerobic Blood Culture - Preliminary No growth in Aerobic bottle after 24 hours. 04/13/25 20:29 Blood Anaerobic Blood Culture - Final 04/13/25 19:44 Blood Aerobic Blood Culture - Preliminary No growth in Aerobic bottle after 24 hours. 04/13/25 19:44 Blood Anaerobic Blood Culture - Preliminary No growth in Anaerobic bottle after 24 hours. 04/13/25 13:36 Urine,Clean Catch Urine Culture - Preliminary Pin-point growth present, reincubating. PG Care Time/CCT Total # of Minutes Spent Total Time Spent with Patient: Total time spent is greater than 50% in coordination of care (as documented) at patient's floor/unit and/or counseling patient: Coding Level of Care Code 32822 SUB INP/OBS CARE 2/35MIN Diagnoses Hyponatremia E87.1 Degenerative lumbar spinal stenosis M48.061 Lumbar back pain with radiculopathy affecting right lower extremity M54.16 Right foot drop M21.371 Constipation K59.00 Primary hypertension I10 Hypertension type: primary hypertension Hypothyroidism E03.9 Left bundle branch block I44.7 Acid reflux disease K21.9 Hernia, mesocolon K45.8 (6) Hypertension Hypertension type: primary hypertension Qualified Code(s): I10 - Essential (primary) hypertension
[2025-04-14] MEDS ORDERED: cefTRIAXone SODIUM 2,000 MG/50 ML BAG IV SCH (15:00)
[2025-04-14] MEDS: SODIUM CHLORIDE 1 GM TABLET PO SCH (16:35)
[2025-04-14] MEDS: MINERAL OIL 30 ML UDC PO ONE (16:37)
[2025-04-14] MEDS: NYSTATIN POWDER 15GM BTL EXT SCH (16:38)
[2025-04-14] MEDS: DICLOFENAC SOD 1% GEL 100 GM TUBE EXT PRN (17:56)
[2025-04-14] MEDS ORDERED: STAT IV/IM STA (19:23)
[2025-04-14] MEDS: SODIUM CHLORIDE 3 % 150 ML IV ONE (19:58)
[2025-04-14] MEDS: DOCUSATE SODIUM 100 MG CAP PO SCH (21:05)
[2025-04-14] MEDS: ENALAPRIL MALEATE 10 MG TAB PO SCH (21:05)
[2025-04-15 05:42] LABS: Hematocrit (blood only) 34.5 % (37.0-47.0); Hemoglobin 12.9 g/dl (12.0-16.0); Immature Granulocytes # (auto) 0.05 K/uL (0.01-0.20); Immature Granulocytes % (auto) 0.7 %; Mean Corpuscular Hemoglobin 32.6 pg (25.0-34.0); Mean Corpuscular Volume 87.1 fL (80.0-100.0); Platelet Count 191 K/uL (130-400); RDW Standard Deviation 35.4 fL (36.4-46.3); Red Blood Count 3.96 M/uL (4.20-5.40); White Blood Count 7.56 K/ul (4.8-10.8)
[2025-04-15 06:03] LABS: Anion Gap 11.0 (3-11); Blood Urea Nitrogen 29.0 mg/dl (6-23); Calcium 8.8 mg/dl (8.6-10.3); Carbon Dioxide 23.0 mmol/L (21-32); Chloride 79.0 mmol/L (98-107); Creatinine Clr Calc Pharmacy 33.4 ml/min; Glucose 115.0 mg/dl (70-99(Fasting)); Magnesium 2.1 mg/dl (1.7-2.4); Potassium 3.6 mmol/L (3.5-5.1); Sodium 113.0 mmol/L (136-145)
[2025-04-15] MEDS ORDERED: STAT IV/IM STA ×3 (08:27→14:55)
--- NOTE | 2025-04-15 08:38 | Nephrology Progress Note ---
Date of Service April 15, 2025 Assessment & Plan (1) Hyponatremia: Plan: * Hyponatremia. Patient appears euvolemic but has significant LE swelling. Suspect LE edema related to amlodipine therapy and venous insufficiency * Hyponatremia likely related to poor solute intake, thiazide diuretic therapy * Triamterene-HCTZ has been stopped * Patient received 100 cc 3% NaCl x2. Serum Na has improved from 109 to 113 mmol/L last 24 hours * High urine Na and Uosm > 200 suggestive of inappropriate free water conservation by kidneys * POC discussed w/ ICU team. Continue NaCl 2g po TID, furosemide 20 mg daily. ICU team has ordered oral urea. Follow up BMP at noon today (2) Hypertension: Plan: * BP is acceptable * Triamterene-HCTZ due to hyponatremia * Amlodipine due to LE swelling * Continue enalapril * Continue furosemide 20 mg daily Admission and Anticipated Discharge Date Admission Date: April 13, 2025 Subjective Ms. Gonzalez was evaluated in the ICU this morning. She is tolerating NaCl tablets without GI upset. She denies MARTE or focal neurologic weakness. Her prim dorothy concern is chronic low back pain Review of Systems Constitutional: no fever Eyes: no problem reported Ear, Nose, Mouth, Throat: no problem reported Respiratory: no dyspnea Cardiovascular: no chest pain Additional Comments: leg edema Gastrointestinal: no abdominal pain Physical Exam Constitutional: no acute distress Eyes: PERRL, conjunctivae normal, anicteric sclerae ENMT: external ear and nose normal, oropharynx normal Neck: trachea midline, no thyromegaly Respiratory: normal respiratory effort, lungs clear to auscultation Cardiovascular: Rate/Rhythm: + bradycardic Extremities: + edema (1+ LE edema) Gastrointestinal (Abdomen): normal bowel sounds, soft, nontender, no hepatosplenomegaly Neurologic: Speech / Cognition: normal speech and normal cognition Results & Data Vital Signs (Past 12 Hours) Vital Signs Pulse Resp BP Pulse Ox 04/15/25 05:00 128/61 04/15/25 04:51 60 18 96 04/15/25 04:15 54 L 18 95 04/15/25 04:00 138/62 04/15/25 03:57 50 L 11 L 100 04/15/25 03:12 47 L 13 04/15/25 02:36 17 04/15/25 02:36 111/60 04/15/25 02:00 51 L 16 04/15/25 01:00 46 L 14 04/15/25 01:00 87/47 L 04/15/25 01:00 87/47 L 04/15/25 00:06 48 L 18 04/14/25 23:09 97/47 L 04/14/25 23:09 97/47 L 04/14/25 23:03 51 L 11 L 04/14/25 23:02 80/38 L 04/14/25 23:01 69/42 L 04/14/25 22:48 51 L 13 04/14/25 22:06 13 04/14/25 22:02 154/59 H 04/14/25 21:48 71 19 04/14/25 21:26 178/84 H 04/14/25 21:06 59 L 16 Laboratory Results Laboratory Results - last 24 hr 04/14/25 04/14/25 04/14/25 05:25 08:26 12:18 WBC RBC Hgb Hct MCV MCH MCHC RDW Std Deviation RDW Coeff of Sarah Plt Count MPV Immature Gran % (Auto) Neut % (Auto) Lymph % (Auto) [place] % (Auto) Eos % (Auto) Baso % (Auto) Neut # (Auto) Lymph # (Auto) [place] # (Auto) Eos # (Auto) Baso # (Auto) Immature Gran # (Auto) Sodium 112 L* 112 L* Potassium Chloride Carbon Dioxide Anion Gap BUN Creatinine Est Cr Clr Drug Dosing eGFR BUN/Creatinine Ratio Glucose POC Glucose Calcium Phosphorus Magnesium Ur Random Sodium 94 04/14/25 04/14/25 04/14/25 16:30 16:33 20:27 WBC RBC Hgb Hct MCV MCH MCHC RDW Std Deviation RDW Coeff of Sarah Plt Count MPV Immature Gran % (Auto) Neut % (Auto) Lymph % (Auto) [place] % (Auto) Eos % (Auto) Baso % (Auto) Neut # (Auto) Lymph # (Auto) [place] # (Auto) Eos # (Auto) Baso # (Auto) Immature Gran # (Auto) Sodium 111 L* 111 L* Potassium Chloride Carbon Dioxide Anion Gap BUN Creatinine Est Cr Clr Drug Dosing eGFR BUN/Creatinine Ratio Glucose POC Glucose 117 H Calcium Phosphorus Magnesium Ur Random Sodium 04/15/25 04/15/25 04/15/25 00:40 04:53 04:53 WBC 7.56 RBC 3.96 L Hgb 12.9 Hct 34.5 L MCV 87.1 MCH 32.6 MCHC 37.4 H RDW Std Deviation 35.4 L RDW Coeff of Sarah 11.1 L Plt Count 191 MPV 9.2 L Immature Gran % (Auto) 0.7 Neut % (Auto) 66.8 Lymph % (Auto) 23.0 [place] % (Auto) 7.8 Eos % (Auto) 1.6 Baso % (Auto) 0.1 Neut # (Auto) 5.05 Lymph # (Auto) 1.74 [place] # (Auto) 0.59 Eos # (Auto) 0.12 Baso # (Auto) 0.01 Immature Gran # (Auto) 0.05 Sodium 113 L* 113 L* Cancelled Potassium 3.6 Chloride 79 L Carbon Dioxide 23 Anion Gap 11 BUN 29 H Creatinine 1.14 Est Cr Clr Drug Dosing 33.4 eGFR 46.02 BUN/Creatinine Ratio 25.4 H Glucose 115 H POC Glucose Calcium 8.8 Phosphorus 3.4 Magnesium 2.1 Ur Random Sodium PG Care Time/CCT Total # of Minutes Spent Total Time Spent with Patient: Total time spent is greater than 50% in coordination of care (as documented) at patient's floor/unit and/or counseling patient: Coding Level of Care Code 54627 SUB INP/OBS CARE 3/50MIN Diagnoses Hyponatremia E87.1 Primary hypertension I10 Hypertension type: primary hypertension (2) Hypertension Hypertension type: primary hypertension Qualified Code(s): I10 - Essential (primary) hypertension
[2025-04-15] MEDS: UREA (UREA-NA) 15 GM PACK PO SCH (09:13)
[2025-04-15] MEDS: FUROSEMIDE INJ 20 MG/2 ML VIAL IV SCH (09:13)
[2025-04-15] MEDS: SODIUM CHLORIDE 3 % 150 ML IV ONE ×2 (09:37→15:16)
--- NOTE | 2025-04-15 09:41 | Critical Care Progress Note ---
Date of Service April 15, 2025 Assessment & Plan (1) Dyspnea on exertion: (2) Anxiety: (3) Low back pain: Plan Ms. Lydia Gonzalez is an 89YOF with a history of osteoarthritis, spinal stenosis, hearing loss, hypertension, hyperlipidemia, venous insufficiency, hypothyroidism, hyponatremia who was admitted to [facility] after presenting with approximately 1 week of poor PO intake, constipation as well as 1 day of nausea with vomiting. She was found to have severe hyponatremia, which has slowly increased from 110 to 113. Neuro: CAM ICU: Negative RASS GOAL 0 APAP PRN Asymptomatic Cardiac: No acute concerns MAP goal > 65mmHg ASA, statin Restart Norvasc, benazepril Respiratory: No acute concerns SpO2 goal > 92% IS/Flutter GI: Diet: Regular diet ordered. Nutrition consulted. SUP: Home PPI Bowel regimen: Miralax, Senokot in AM Zofran PRN RENAL/LYTES: Hold on further hypertonic therapy unless symptomatic. Na increased to 113 this AM. Can decrease Na checks to q8h Replete electrolytes as indicated; remain mindful KCl will correct Na as well Continue NaCl 2 grams TID. Start urea 15 grams BID. Continue Lasix per Nephro. Closely monitor I/Os. Maintain net even to net negative ENDO: TSH WNL, restart Levoxyl Bsg goal 140-180 HEME: No acute concerns ID: Empiric ceftriaxone discontinued as patient likely has asymptomatic bacteruria. UCx and BCx x2 pending; prelim results all NGTD. MRSA nares negative. LINES/TUBES/DRAINS: PIV x2 DVT PROPHYLAXIS - Enoxaparin CODE STATUS - DNR/DNI DISPOSITION - continue ICU stay Admission and Anticipated Discharge Date Admission Date: April 13, 2025 Supervising Physician Co-Signing Physician Notes Dr. Montgomery was resident physician during care of patient. I separately evaluated patient for portillo portions of the history and the exam. I was present during the critical portion of medical decision making, and I discussed the case with the resident. I generally agree with the findings and plan. Slow correction of hyponatremia adding urea. Patient asymptomatic otherwise and pleasant states she is 75% improved. Continue Q8 BMPs, Subjective NAEO. Patient seen and examined at bedside. Feeling well overall. Na slightly improved to 113; no evident sx, neuro intact with no signs of cerebral edema. Nephro on board. Will continue salt tabs and add urea. Review of Systems Review of Systems: As per HPI. Physical Exam Physical Exam: Gen: NAD, WD/WN HEENT: NCAT, normal conjunctiva, MMM CV: RRR, no m/r/g, S1/S2 normal, no LE edema Resp: CTAB, symmetrical chest rise, breathing non-labored Abd: Soft, NT/ND, +BS, no HSM MSK: Full ROM, no gross deformities on inspection Skin: Warm, dry, well-perfused, no rashes Neuro: AOx3, CN II-XII grossly intact, no focal deficits Psych: Full, euthymic affect. Results & Data Results & Data Vital Signs (Past 12 Hours) Vital Signs Pulse Resp BP Pulse Ox 04/15/25 05:00 128/61 04/15/25 04:51 60 18 96 04/15/25 04:15 54 L 18 95 04/15/25 04:00 138/62 04/15/25 03:57 50 L 11 L 100 04/15/25 03:12 47 L 13 04/15/25 02:36 17 04/15/25 02:36 111/60 04/15/25 02:00 51 L 16 04/15/25 01:00 46 L 14 04/15/25 01:00 87/47 L 04/15/25 01:00 87/47 L 04/15/25 00:06 48 L 18 04/14/25 23:09 97/47 L 04/14/25 23:09 97/47 L 04/14/25 23:03 51 L 11 L 04/14/25 23:02 80/38 L 04/14/25 23:01 69/42 L 04/14/25 22:48 51 L 13 04/14/25 22:06 13 04/14/25 22:02 154/59 H 04/14/25 21:48 71 19
--- NOTE | 2025-04-15 10:05 | Billing Data ---
Date of Service April 15, 2025 Coding Level of Care Code 56157 CRITICAL CARE
[2025-04-15] MEDS: POTASSIUM CHLORIDE CRTAB 20 MEQ TABCR PO STA ×2 (10:09→10:13)
[2025-04-15] MEDS: STOP ORDER ONE (10:14)
[2025-04-15] MEDS: MAGNESIUM CITRATE 296 ML/BTL PO SCH (12:18)
[2025-04-15] MEDS: SODIUM CHLORIDE 3 % 50 ML IV ONE (14:03)
--- NOTE | 2025-04-15 14:37 | Hospitalist Progress Note ---
Date of Service April 15, 2025 Assessment & Plan (1) Hyponatremia: (2) Degenerative lumbar spinal stenosis: (3) Lumbar back pain with radiculopathy affecting right lower extremity: (4) Right foot drop: (5) Constipation: (6) Hypertension: (7) Hypothyroidism: (8) Left bundle branch block: (9) Acid reflux disease: (10) Hernia, mesocolon: (11) Bradycardia: Plan 89yo female with history of 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 She was seen by her PCP on day of admission at the [place] office due to persistent nausea, dry heaves/vomiting, poor PO intake, right foot drop/right foot (and leg) "dragging" when she was walking, intractable right leg pain, and concerns for hernia that was seen on recent CT scan at [facility] on 04/11/25. When she presented to [facility] her sodium was found to be 109; about 1 week ago it was 130. #acute on chronic hyponatremia - -chronic hyponatremia (baseline low 130s) likely due to regular use of HCTZ and occasional lasix -acute hyponatremia seems temporarily related to very poor PO intake over the last week; this would suggest solute deficiency, but her urine Na level is high which argues against solute deficiency (her HCTZ use and recent lasix use, however, may have confounded the urine Na results); urine osm was high relative to serum osm, and remains high on subsequent checks --> suggestive of SIADH -cause/trigger of acute SIADH?? -thus far the obvious trigger has not been found -BUN and Cr remain wnl -she remains euvolemic -LE edema is chronic; no signs of volume overload/CHF -recent steroid injection, vomiting, etc may also have contributed to acute hyponatremia -surprisingly, despite the acuity and the severity of her hyponatremia, she has not had mental status changes -fortunately no seizures either -s/p 3% saline boluses x 2 in the ER -now on NaCl tabs 2gm TID with lasix as recommended by Dr Montelongo from nephrology - appreciate his assistance -continue serial Na levels -SLOWLY improving -urea added by ICU team -cortisol level wnl -TSH level wnl -appreciate consultations by ICU attendings and Dr Montelongo -cont to hold HCTZ #acute/chronic low back pain, RLE radicular pain, and new onset right foot drop - -foot drop IS better; RLE pain has improved, but still with mild weakness of right hip flexion and right knee extension -as noted - she had an epidural steroid injection at L5-S1 on 04/05/25 by pain management -for acute pain - norco 7.5's prn; cont chronic zanaflex prn (chronic med for her) -of note - 04/11/25 CT a/p did not mention any significant abnormalities of the lumbar spine -see discussion below re: MRI and getting her comfortably thru the imaging study; see below re: anesthesia opinion (sedation vs no sedation) #poor oral intake/anorexia, nausea/vomiting - -04/11 CT done at [facility] did not show signs of ileus or obstruction -KUB x-ray here without obstruction -LFTs, lipase wnl -UTI? -side effects from narcotics? -combination of factors? -CT did mention findings that could fit with gastritis; thus, increased PPI to twice daily (was taking QD at home) + added carafate 1gm QID -diet as tolerated -UTI ruled out #mesosigmoid colon hernia - -seen on CT a/p on 04/11/25 at outside hospital -no obstruction seen on that CT -this is a form of internal hernia -doubt contributing to current symptoms -informally d/w on-call general surgery on hospital day #1 - nothing to do at this time #hypothyroidism - -TSH wnl -cont synthroid #HTN - -uncontrolled initially but now improved; suspect 2nd to pain at ER presentation -defer Rx to ICU/nephrology #?UTI - -s/p rocephin in ER -urine cx with aerococcus - likely contamination; will stop abx #GERD - -PPI twice daily -carafate QID -see above -improved #DVT proph - -until dedicated imaging of lumbar spine has been completed (to r/o hematoma, etc) hold off on chemical DVT proph #LBBB - -chronic, no ischemic symptoms #bradycardia - -40s/50s -I cannot find EKG from this admission - will check one -previous EKGs with NSR with LBBB -no pauses or block on tele to date -TSH wnl -suspect sinus node dysfunction -follow carefully #constipation - -likely 2nd to narcotics over the last week for her back -senna + miralax; was given mag citrate by ICU today -if no BM with such then consider suppos or enema -no obstruction on recent CT a/p or KUB updated pt's daughters by telephone this evening discussed hyponatremia discussed MRI l-spine discussed with them that I had correspondence with anesthesia and that they advise against sedation unless absolutely necessary discussed we can pre-mediate with IV pain meds prior to MRI daughters questioned reasons for MRI, what we are looking for, etc. discussed ruling out hematoma, infectious process, etc. of l-spine discussed that perhaps some sort of spine process triggered the SIADH given the time course of the events of last 10 days? did relay our concerns that her low back pain has been worse over the last 10 days and, in light of recent severe RLE symptoms (including a transient foot drop) in the setting of her epidural steroid injection, getting MRI is highly suggested daughters plan to discuss this with their mother in the morning we discussed the constipation and that we are working on getting this resolved care d/w Dr Vieyra, ICU care d/w anesthesia via [place] correspondence Admission and Anticipated Discharge Date Admission Date: April 13, 2025 Subjective tele - ongoing bradycardia patient reports ongoing severe low back pain can't get comfortable she was very tired during my visit (late morning) she said "I usually sleep longer" (for her naps) she was borderline falling asleep in her chair when I visited with her right groin/right prox thigh pain still present but improved weakness right leg is better eating a little better patient doesn't think she can tolerate MRI l-spine she did have MRI l-spine in 2023 at [facility] without sedation but stated "my back wasn't as bad then" she requests "to be put out" for her MRI Review of Systems Review of Systems: cv - no cp pulm - no dyspnea GI - still no BM but passing flatus Physical Exam Physical Exam: gen - sitting in chair, very tired today HENT - MMM neck - no JVD heart - RRR, s1 s2, no murmur lungs - CTA b/l abd - distended, BS+, NT, no HSM ext - 2-3+ edema b/l feet & shins up to the knees (worse); pulses b/l feet 2+ neuro - left hip flexion 5/5, right hip flexion 4-5/5; right foot plantarflexion 5/5; dorsiflexion right foot 4-5/5; left foot dorsi/plantarflexion 5/5; right leg extension 4-5/5; left leg extension 5/5 Results & Data Results & Data Vital Signs (Past 12 Hours) Vital Signs Temp Pulse Pulse Resp BP BP Pulse Ox 04/15/25 13:30 46 L 14 04/15/25 13:12 50 L 7 L 04/15/25 13:09 49 L 7 L 04/15/25 12:45 55 L 17 04/15/25 12:40 36.9 C 55 L 16 157/61 H 98 04/15/25 12:33 52 L 11 L 04/15/25 11:42 58 L 15 04/15/25 11:33 52 L 14 04/15/25 11:18 54 L 19 04/15/25 11:03 64 18 04/15/25 11:01 124/106 H 04/15/25 11:01 124/106 H 04/15/25 11:01 124/106 H 04/15/25 11:00 66 17 04/15/25 10:51 54 L 20 04/15/25 10:45 102 H 18 04/15/25 10:30 53 L 17 04/15/25 10:21 55 L 20 04/15/25 10:12 53 L 17 04/15/25 10:03 65 24 04/15/25 10:02 167/67 H 04/15/25 10:02 167/67 H 04/15/25 10:02 167/67 H 04/15/25 09:39 70 16 04/15/25 09:33 56 L 27 H 04/15/25 09:27 61 14 04/15/25 09:06 59 L 22 04/15/25 09:01 145/74 H 04/15/25 08:57 70 14 04/15/25 08:42 67 18 98 04/15/25 08:39 54 L 16 97 04/15/25 08:24 54 L 16 96 04/15/25 08:01 120/90 04/15/25 08:01 120/90 04/15/25 08:01 120/90 04/15/25 08:01 120/90 04/15/25 08:00 50 L 17 96 04/15/25 07:57 52 L 14 96 04/15/25 07:48 57 L 17 95 04/15/25 07:30 51 L 17 97 04/15/25 07:21 52 L 20 96 04/15/25 07:15 46 L 16 96 04/15/25 07:02 163/63 H 04/15/25 06:57 47 L 14 97 04/15/25 06:33 47 L 12 95 04/15/25 06:21 44 L 13 95 04/15/25 06:12 46 L 10 L 93 04/15/25 05:00 128/61 04/15/25 04:51 60 18 96 04/15/25 04:15 54 L 18 95 04/15/25 04:00 138/62 04/15/25 03:57 50 L 11 L 100 04/15/25 03:12 47 L 13 Laboratory Results Laboratory Results - last 24 hr 04/15/25 04/15/25 04/15/25 04:53 08:34 12:44 WBC RBC Hgb Hct MCV MCH MCHC RDW Std Deviation RDW Coeff of Sarah Plt Count MPV Immature Gran % (Auto) Neut % (Auto) Lymph % (Auto) [place] % (Auto) Eos % (Auto) Baso % (Auto) Neut # (Auto) Lymph # (Auto) [place] # (Auto) Eos # (Auto) Baso # (Auto) Immature Gran # (Auto) Sodium Cancelled 113 L* 113 L* Potassium Chloride Carbon Dioxide Anion Gap BUN Creatinine Est Cr Clr Drug Dosing eGFR BUN/Creatinine Ratio Glucose POC Glucose Calcium Magnesium PG Care Time/CCT Total # of Minutes Spent Total Time Spent with Patient: Total time spent is greater than 50% in coordination of care (as documented) at patient's floor/unit and/or counseling patient: Coding Level of Care Code 18180 SUB INP/OBS CARE 3/50MIN Diagnoses Hyponatremia E87.1 Degenerative lumbar spinal stenosis M48.061 Lumbar back pain with radiculopathy affecting right lower extremity M54.16 Right foot drop M21.371 Constipation K59.00 Primary hypertension I10 Hypertension type: primary hypertension Hypothyroidism E03.9 Left bundle branch block I44.7 Acid reflux disease K21.9 Hernia, mesocolon K45.8 Bradycardia R00.1 (6) Hypertension Hypertension type: primary hypertension Qualified Code(s): I10 - Essential (primary) hypertension
[2025-04-16 00:55] LABS: Potassium 3.6 mmol/L (3.5-5.1); Sodium 120.0 mmol/L (136-145)
[2025-04-16 04:55] LABS: Hematocrit (blood only) 31.3 % (37.0-47.0); Hemoglobin 11.5 g/dl (12.0-16.0); Immature Granulocytes # (auto) 0.03 K/uL (0.01-0.20); Immature Granulocytes % (auto) 0.4 %; Mean Corpuscular Hemoglobin 33.0 pg (25.0-34.0); Mean Corpuscular Volume 89.7 fL (80.0-100.0); Platelet Count 171 K/uL (130-400); RDW Standard Deviation 36.4 fL (36.4-46.3); Red Blood Count 3.49 M/uL (4.20-5.40); White Blood Count 6.89 K/ul (4.8-10.8)
[2025-04-16 05:32] LABS: Anion Gap 8.0 (3-11); Blood Urea Nitrogen 58.0 mg/dl (6-23); Calcium 8.5 mg/dl (8.6-10.3); Carbon Dioxide 24.0 mmol/L (21-32); Chloride 87.0 mmol/L (98-107); Creatinine Clr Calc Pharmacy 34.9 ml/min; Glucose 108.0 mg/dl (70-99(Fasting)); Magnesium 2.2 mg/dl (1.7-2.4); Potassium 3.5 mmol/L (3.5-5.1); Sodium 119.0 mmol/L (136-145)
[2025-04-16] MEDS: POTASSIUM CHLORIDE CRTAB 20 MEQ TABCR PO STA (06:23)
[2025-04-16 09:32] LABS: Anion Gap 7.0 (3-11); Blood Urea Nitrogen 52.0 mg/dl (6-23); Calcium 8.9 mg/dl (8.6-10.3); Carbon Dioxide 26.0 mmol/L (21-32); Chloride 88.0 mmol/L (98-107); Creatinine Clr Calc Pharmacy 36.3 ml/min; Glucose 120.0 mg/dl (70-99(Fasting)); Potassium 3.6 mmol/L (3.5-5.1); Sodium 121.0 mmol/L (136-145)
--- NOTE | 2025-04-16 09:44 | Critical Care Progress Note ---
Date of Service April 16, 2025 Assessment & Plan (1) Dyspnea on exertion: (2) Anxiety: (3) Low back pain: Plan Neuro - CAM ICU: Negative RASS GOAL 0 APAP PRN Asymptomatic Cardiac - No acute concerns MAP goal > 65mmHg ASA, statin Restart Norvasc, benazepril Respiratory - No acute concerns SpO2 goal > 92% IS/Flutter GI - Diet: Regular diet ordered. Nutrition consulted. SUP: Home PPI Bowel regimen: Miralax, Senokot in AM Zofran PRN RENAL/LYTES - Sodium now greater than 120 Discontinuing urea ENDO - TSH WNL, restart Levoxyl BG 140-180 per SCCM guidelines ISS if needed while inpatient HEME - No acute concerns ID - Empiric ceftriaxone discontinued as patient likely has asymptomatic bacteruria. UCx and BCx x2 pending, MRSA nares pending, procalcitonin added LINES/TUBES/DRAINS - PIV x2 DVT PROPHYLAXIS - Enoxaparin CODE STATUS - DNR/DNI DISPOSITION - Stable for downgrade out of ICU given sodium greater than 120, critical care will sign off Admission and Anticipated Discharge Date Admission Date: April 13, 2025 Subjective No overnight events. Continued improvement in sodium levels. Physical Exam Physical Exam: General: Alert. nontoxic. Skin: Warm, dry, Head: Atraumatic Ears, nose, mouth and throat: airway patent Cardiovascular: Normal peripheral perfusion Respiratory: no respiratory distress Gastrointestinal: Non distended Musculoskeletal: No deformity Results & Data Results & Data Vital Signs (Past 12 Hours) Vital Signs Temp Pulse Resp BP Pulse Ox O2 Del Method 04/16/25 09:24 Room Air 04/16/25 08:44 36.4 C L 04/16/25 08:06 56 L 17 04/16/25 08:01 139/49 L 04/16/25 07:57 53 L 18 04/16/25 07:01 115/33 L 04/16/25 07:00 41 L 12 04/16/25 06:00 45 L 12 144/37 H 98 Room Air 04/16/25 05:01 46 L 18 117/34 L 98 Room Air 04/16/25 04:17 36.5 C 55 L 14 168/57 H 97 Room Air 04/16/25 03:00 45 L 12 84/32 L 98 Room Air 04/16/25 02:02 36.6 C 44 L 18 99/39 L 96 Room Air 04/16/25 01:12 44 L 18 04/16/25 01:00 53 L 13 94/34 L 96 Room Air 04/16/25 00:23 56 L 14 121/59 L 97 Room Air 04/16/25 00:01 44 L 12 83/34 L 96 Room Air 04/15/25 23:50 45 L 04/15/25 23:22 36.5 C 46 L 12 109/44 L 96 Room Air Critical Care Results & Data Vital Signs (Past 12 Hours) Vital Signs Temp Pulse Resp BP Pulse Ox O2 Del Method 04/16/25 09:24 Room Air 04/16/25 08:44 36.4 C L 04/16/25 08:06 56 L 17 04/16/25 08:01 139/49 L 04/16/25 07:57 53 L 18 04/16/25 07:01 115/33 L 04/16/25 07:00 41 L 12 04/16/25 06:00 45 L 12 144/37 H 98 Room Air 04/16/25 05:01 46 L 18 117/34 L 98 Room Air 04/16/25 04:17 36.5 C 55 L 14 168/57 H 97 Room Air 04/16/25 03:00 45 L 12 84/32 L 98 Room Air 04/16/25 02:02 36.6 C 44 L 18 99/39 L 96 Room Air 04/16/25 01:12 44 L 18 04/16/25 01:00 53 L 13 94/34 L 96 Room Air 04/16/25 00:23 56 L 14 121/59 L 97 Room Air 04/16/25 00:01 44 L 12 83/34 L 96 Room Air 04/15/25 23:50 45 L 04/15/25 23:22 36.5 C 46 L 12 109/44 L 96 Room Air Lab & Micro Results (Past 24 Hours) RBC 3.49 M/uL (4.20-5.40) L 04/16/25 WBC 6.89 K/ul (4.8-10.8) 04/16/25 Hgb 11.5 g/dl (12.0-16.0) L 04/16/25 Hct 31.3 % (37.0-47.0) L 04/16/25 MCV 89.7 fL (80.0-100.0) 04/16/25 MCH 33.0 pg (25.0-34.0) 04/16/25 MCHC 36.7 g/dL (32.0-36.0) H 04/16/25 RDW Standard Deviation 36.4 fL (36.4-46.3) 04/16/25 RDW Coefficient of Variation 11.2 % (11.5-14.5) L 04/16/25 Plt Count 171 K/uL (130-400) 04/16/25 MPV 9.1 fL (9.4-12.4) L 04/16/25 Neutrophils (%) (Auto) 69.4 % 04/16/25 Lymphocytes (%) (Auto) 19.4 % 04/16/25 Monocytes # (Auto) 0.50 K/uL (0.11-0.59) 04/16/25 Eosinophils # (Auto) 0.22 K/uL (0.00-0.50) 04/16/25 Immature Granulocyte % (Auto) 0.4 % 04/16/25 Neutrophils # (Auto) 4.78 K/uL (1.40-6.50) 04/16/25 Lymphocytes # (Auto) 1.34 K/uL (1.20-3.40) 04/16/25 Monocytes # (Auto) 0.50 K/uL (0.11-0.59) 04/16/25 Eosinophils # (Auto) 0.22 K/uL (0.00-0.50) 04/16/25 Basophils # (Auto) 0.02 K/uL (0.00-0.20) 04/16/25 Immature Granulocyte # (Auto) 0.03 K/uL (0.01-0.20) 5 Na 121 mmol/L (136-145) L 04/16/25 K 3.6 mmol/L (3.5-5.1) 04/16/25 Cl 88 mmol/L (98-107) L 04/16/25 CO2 26 mmol/L (21-32) 04/16/25 Anion Gap 7 (3-11) 04/16/25 BUN 52 mg/dl (6-23) H 04/16/25 Creatinine 1.05 mg/dl (0.6-1.2) 04/16/25 BUN/Creatinine Ratio 49.5 (10-20) H 04/16/25 Glu 120 mg/dl (70-99(Fasting)) H 04/16/25 Ca 8.9 mg/dl (8.6-10.3) 04/16/25 Mg 2.2 mg/dl (1.7-2.4) 04/16/25 04:33 Calcium Level 8.9 mg/dl (8.6-10.3) 04/16/25 08:59 Microbiology 04/13/25 20:29 Aerobic Blood Culture - Preliminary Blood No growth in Aerobic bottle after 48 hours. Anaerobic Blood Culture - Final 04/13/25 19:44 Aerobic Blood Culture - Preliminary Blood No growth in Aerobic bottle after 48 hours. Anaerobic Blood Culture - Preliminary No growth in Anaerobic bottle after 48 hours. 04/13/25 13:36 Urine Culture - Final Urine,Clean Catch Aerococcus urinae Aerococcus sanguinicola I & O Totals 24 Hours 04/15/25 04/16/25 04/17/25 06:59 06:59 06:59 Intake Total 709.167 / 649.147 9324 / 1395 100 / 100 Output Total 1625 / 1625 2658 / 2658 201 / 201 Balance -915.833 / -915.833 -1263 / -1263 -101 / -101 Cumulative 04/13/25 12:33 thru 04/16/25 08:43 Intake Total 2575.001 Output Total 4934 Balance -2358.999 RT Ventilator Mngmt (Last Documented) Ventilator Ordered Settings Respiratory Rate 17 04/16/25 08:06 Ventilator - PT Measurements Respiratory Rate 17 Coding Level of Care Code 08180 SUB INP/OBS CARE 10/09MIN Diagnoses Dyspnea on exertion R06.09 Anxiety F41.9 Low back pain M54.50
--- NOTE | 2025-04-16 11:18 | Nephrology Progress Note ---
Date of Service April 16, 2025 Assessment & Plan (1) Acute hyponatremia: (2) Bilateral leg edema: Plan 89 y o F with PMH of of hypertension, hyperlipidemia, venous insufficiency, hypothyroidism, chronic hyponatremia, admitted to [facility] shortness with 1 week of poor PO intake, constipation as well as 1 day of nausea with vomiting. She was found to have severe hyponatremia with Na 111. HCTZ was stopped. w/u unremarkable. Received 3% NaCl x5 total since admission. Na has been slowly improving. Na this morning was 121. --change Lasix to 20 mg po bid --decrease salt tab to 2 gm bid --Continue to monitor serum sodium closely --Thiazide diuretics should be avoided in future. Admission and Anticipated Discharge Date Admission Date: April 13, 2025 Sergio Freeman was seen and evaluated this morning. She reports overall feeling much better. Denies shortness of breath. Sodium improved to 121 this morning. Other electrolyte acceptable. Decent urine output, net negative. Review of Systems Review of Systems: All systems reviewed & are unremarkable except as noted in Subjective Physical Exam Constitutional: WD/WN, vitals as above + ill appearing; no acute distress Eyes: + anicteric sclerae Neck: normal visual inspection Respiratory: no respiratory distress Auscultation: lungs clear to auscultation bilaterally Cardiovascular: Rate/Rhythm: regular rate and regular rhythm Heart Sounds: normal S1 and normal S2 Extremities: + edema Skin: no rashes, warm and dry Neurologic: no focal motor deficits and not confused Psychiatric: Orientation: alert and oriented x 3 Results & Data Vital Signs (Past 12 Hours) Vital Signs Temp Pulse Resp BP Pulse Ox O2 Del Method 04/16/25 09:24 Room Air 04/16/25 08:44 36.4 C L 04/16/25 08:06 56 L 17 04/16/25 08:01 139/49 L 04/16/25 07:57 53 L 18 04/16/25 07:10 44 L 04/16/25 07:01 115/33 L 04/16/25 07:00 41 L 12 04/16/25 06:00 45 L 12 144/37 H 98 Room Air 04/16/25 05:01 46 L 18 117/34 L 98 Room Air 04/16/25 04:17 36.5 C 55 L 14 168/57 H 97 Room Air 04/16/25 03:00 45 L 12 84/32 L 98 Room Air 04/16/25 02:02 36.6 C 44 L 18 99/39 L 96 Room Air 04/16/25 01:12 44 L 18 04/16/25 01:00 53 L 13 94/34 L 96 Room Air 04/16/25 00:23 56 L 14 121/59 L 97 Room Air 04/16/25 00:01 44 L 12 83/34 L 96 Room Air 04/15/25 23:50 45 L 04/15/25 23:22 36.5 C 46 L 12 109/44 L 96 Room Air PG Care Time/CCT Total # of Minutes Spent Total Time Spent with Patient: Total time spent is greater than 50% in coordination of care (as documented) at patient's floor/unit and/or counseling patient: Coding Level of Care Code 43132 SUB INP/OBS CARE 235MIN Diagnoses Acute hyponatremia E87.1 Bilateral leg edema R60.0
--- NOTE | 2025-04-16 12:09 | Hospitalist Progress Note ---
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 She was seen by her PCP on day of admission at the [place] office due to persistent nausea, dry heaves/vomiting, poor PO intake, right foot drop/right foot (and leg) "dragging" when she was walking, intractable right leg pain, and concerns for hernia that was seen on recent CT scan at [facility] on 04/11/25. When she presented to [facility] her sodium was found to be 109; about 1 week ago it was 130. #acute on chronic hyponatremia - -chronic hyponatremia (baseline low 130s) likely due to regular use of HCTZ and occasional lasix -acute hyponatremia seems temporarily related to very poor PO intake over the last week; this would suggest solute deficiency, but her urine Na level was high which argues against solute deficiency (her HCTZ use and recent lasix use, however, may have confounded the urine Na results) -urine osm was high relative to serum osm, and remained high on subsequent checks -->highly suggestive of SIADH -cause/trigger of acute SIADH?? -with ?L2/L3 discitis on MRI l-spine could this be the trigger? -she remains euvolemic on exam -LE edema is chronic; no signs of volume overload/CHF -recent steroid injection, vomiting, etc may also have contributed to acute hyponatremia -surprisingly, despite the acuity and the severity of her hyponatremia, she never had acute mental status changes - although, retrospectively, she had been very tired and this is much improved -fortunately no seizures -s/p 3% saline boluses x 2 in the ER on HD #1 -now on NaCl tabs -nephrology today lowered such to 2gm BID -urea stopped -lasix IV changed to lasix 20mg BID -continue serial Na levels -SLOWLY improving - 121 this am -cortisol level wnl -TSH level wnl -cont to hold HCTZ #acute/chronic low back pain, RLE radicular pain, and new onset right foot drop - prior to admission - -foot drop IS better; RLE pain has improved, mild weakness of right hip flexion and right knee extension improved -she had an epidural steroid injection at L5-S1 on 04/05/25 by pain management -for acute pain - norco 7.5's prn; cont chronic zanaflex prn (chronic med for her) -of note - 04/11/25 CT a/p did not mention any significant abnormalities of the lumbar spine -MRI lumbar spine w/ contrast finally obtained today -- NO hematoma, NO cord compromise; however, ?L2/L3 discitis -checked sed rate and crp - both very normal -blood cx's negative to date -will ask ortho-spine to consult for their opinion -may need bone biopsy from this location to exclude discitis -if she indeed has discitis this could have triggered her SIADH #poor oral intake/anorexia, nausea/vomiting - -04/11 CT done at [facility] did not show signs of ileus or obstruction -KUB x-ray here without obstruction -LFTs, lipase wnl -resolved -CT did mention findings that could fit with gastritis; thus, increased PPI to twice daily (was taking QD at home) + added carafate 1gm QID -diet as tolerated #mesosigmoid colon hernia - -seen on CT a/p on 04/11/25 at outside hospital -no obstruction seen on that CT -this is a form of internal hernia -doubt contributing to current symptoms -informally d/w on-call general surgery on hospital day #1 - nothing to do at this time #hypothyroidism - -TSH wnl -cont synthroid #HTN - -uncontrolled initially but now improved; suspect 2nd to pain at ER presentation -cont enalapril -cont lasix orally -amlodipine stopped - concern it was contributing to LE edema #?UTI - -s/p rocephin in ER -urine cx with aerococcus - likely contamination; all abx stopped #GERD - -PPI twice daily -carafate QID -much improved #DVT proph - -chemical means had been on hold until L-spine MRI was completed -since MRI did not show hematoma will start heparin SC 5000 BID -can always stop such if she needs L2/L3 biopsy #LBBB - -chronic, no ischemic symptoms #bradycardia - -40s/50s -I cannot find EKG from this admission - will check one -previous EKGs with NSR with LBBB -no pauses or block on tele to date -TSH wnl -suspect sinus node dysfunction -follow carefully #constipation - -likely 2nd to narcotics over the last week for her back -resolved -cont miralax for maintenance -stop senna updated pt's daughters at bedside today MRI results reviewed discussed plan care d/w Dr Vieyra, ICU care d/w anesthesia via [place] correspondence can Tx from ICU to PCU today Admission and Anticipated Discharge Date Admission Date: April 13, 2025 Subjective patient has had copious #'s of stool since yesterday no nausea/emesis and able to eat/drink she is ambulating to the toilet with her walker and her 2 daughters (and nursing staff) assisting no abd pain she overall feels better low back pain persists right leg pain is improved right leg weakness is better lengthy discussion held about getting MRI WITHOUT sedation by anesthesia explained that anesthesia would prefer NOT to sedate her as she is high risk for complications she was willing to try MRI with pre-meds (IV dilaudid) patient successfully completed the MRI l-spine this afternoon Review of Systems Review of Systems: gen - no fevers, no chills cv - no chest pain pulm - no dyspnea - stacy remains in place Physical Exam Physical Exam: gen - sitting in chair, looks much better today, mentating normally, making jokes today HENT - MMM neck - no JVD heart - RRR, s1 s2, no murmur lungs - CTA b/l abd - soft, BS+, NT, ND, no HSM ext - 2-3+ edema b/l feet & shins up to the knees - same as yesterday; pulses b/l feet 2+ Results & Data Results & Data Vital Signs (Past 12 Hours) Vital Signs Temp Pulse Resp BP Pulse Ox O2 Del Method 04/16/25 09:24 Room Air 04/16/25 08:44 36.4 C L 04/16/25 08:06 56 L 17 04/16/25 08:01 139/49 L 04/16/25 07:57 53 L 18 04/16/25 07:10 44 L 04/16/25 07:01 115/33 L 04/16/25 07:00 41 L 12 04/16/25 06:00 45 L 12 144/37 H 98 Room Air 04/16/25 05:01 46 L 18 117/34 L 98 Room Air 04/16/25 04:17 36.5 C 55 L 14 168/57 H 97 Room Air 04/16/25 03:00 45 L 12 84/32 L 98 Room Air 04/16/25 02:02 36.6 C 44 L 18 99/39 L 96 Room Air 04/16/25 01:12 44 L 18 04/16/25 01:00 53 L 13 94/34 L 96 Room Air 04/16/25 00:23 56 L 14 121/59 L 97 Room Air Laboratory Results Laboratory Results - last 24 hr 04/15/25 04/15/25 04/15/25 12:44 16:08 20:27 WBC RBC Hgb Hct MCV MCH MCHC RDW Std Deviation RDW Coeff of Sarah Plt Count MPV Immature Gran % (Auto) Neut % (Auto) Lymph % (Auto) [place] % (Auto) Eos % (Auto) Baso % (Auto) Neut # (Auto) Lymph # (Auto) [place] # (Auto) Eos # (Auto) Baso # (Auto) Immature Gran # (Auto) Sodium 113 L* 118 L* 117 L* Potassium Chloride Carbon Dioxide Anion Gap BUN Creatinine Est Cr Clr Drug Dosing eGFR BUN/Creatinine Ratio Glucose POC Glucose Calcium Magnesium 04/15/25 04/16/25 04/16/25 23:21 00:17 04:33 WBC 6.89 RBC 3.49 L Hgb 11.5 L Hct 31.3 L MCV 89.7 MCH 33.0 MCHC 36.7 H RDW Std Deviation 36.4 RDW Coeff of Sarah 11.2 L Plt Count 171 MPV 9.1 L Immature Gran % (Auto) 0.4 Neut % (Auto) 69.4 Lymph % (Auto) 19.4 [place] % (Auto) 7.3 Eos % (Auto) 3.2 Baso % (Auto) 0.3 Neut # (Auto) 4.78 Lymph # (Auto) 1.34 [place] # (Auto) 0.50 Eos # (Auto) 0.22 Baso # (Auto) 0.02 Immature Gran # (Auto) 0.03 Sodium 120 L 119 L* Potassium 3.6 3.5 Chloride 87 L Carbon Dioxide 24 Anion Gap 8 BUN 58 H D Creatinine 1.09 Est Cr Clr Drug Dosing 34.9 eGFR 48.56 BUN/Creatinine Ratio 53.2 H Glucose 108 H POC Glucose 115 H Calcium 8.5 L Magnesium 2.2 04/16/25 08:59 WBC RBC Hgb Hct MCV MCH MCHC RDW Std Deviation RDW Coeff of Sarah Plt Count MPV Immature Gran % (Auto) Neut % (Auto) Lymph % (Auto) [place] % (Auto) Eos % (Auto) Baso % (Auto) Neut # (Auto) Lymph # (Auto) [place] # (Auto) Eos # (Auto) Baso # (Auto) Immature Gran # (Auto) Sodium 121 L Potassium 3.6 Chloride 88 L Carbon Dioxide 26 Anion Gap 7 BUN 52 H Creatinine 1.05 Est Cr Clr Drug Dosing 36.3 eGFR 50.79 BUN/Creatinine Ratio 49.5 H Glucose 120 H POC Glucose Calcium 8.9 Magnesium Diagnostic Findings Lumbar Spine MRI 04/16/25 09:00 EXAM: MR lumbar spine wo/w con CLINICAL HISTORY: s/p L5-S1 steroid injection; right foot drop; pain. TECHNIQUE: MRI of the lumbar spine was performed with and without the administration of intravenous contrast. 8.5mL Gadavist intraevnous contrast was administered. Sequences obtained include sagittal T1-weighted, T2-weighted, STIR (Short Tau Inversion Recovery), and axial T2-weighted sequences. COMPARISON: none. FINDINGS: Vertebral Alignment: Right scoliosis of the lumbar spine noted. L5 over S1 grade I anterolisthesis. L4-L5, L3-L4, and L2-L3 subtle degree retrolisthesis noted. Vertebral Bodies and Intervertebral Discs: Normal vertebral body height, no fracture identified. Moderate spondylosis of the lumbar spine with marginal osteophytosis, heterogenous signals referring to fatty bone marrow reconversion. L2-L3 disc high T2 and STIR signal with nor,mal signal of the related vertebral endplates, suggesting possible dicitis. [id number] analysis: T12-L1: There is no significant disc pathology. No spinal canal stenosis. No neural foraminal stenosis.No ligamentum flavum hypertrophy and facet joint arthropathy. L1-L2: There is a 5 mm posterior central and left paracentral disc/ osteophyte complex protrusion abutting the ventral theca and causing moderate left foraminal stenosis encroaching upon the left exiting nerve root. No spinal canal stenosis. No neural foraminal stenosis. Ligamentum flavum hypertrophy and facet joint arthropathy augment the neural compramise. L2-L3: There is a 3 mm posterior disc/osteophyte protrusion abutting the ventral theca with moderate left side exit neural forminal encroachment, No spinal canal stenosis. . Ligamentum flavum hypertrophy and facet joint arthropathy augment the neural compramise. L3-L4: There is a 4 mm disc/osteophyte complex bulge indenting the ventrla theca with severe right side and moderate left side exit neural foraminal narrowing impenging both exiting nerve roots. mild spinal canal stenosis. Ligamentum flavum hypertrophy and facet joint arthropathy augment the neural compramise. L4-L5: There is a 4 mm diffuse disc bulge indenting the ventral theca with severe right side and moderate left side exit neural formainal stenosis impenging both exiting nerve roots. No spinal canal stenosis. Ligamentum flavum hypertrophy and facet joint arthropathy augment the neural compramise. L5-S1: There is a 6 mm diffuse disc bulge abutting the ventrla theca with moderate bilateral exit neural formainal narrowing, moderate spinal canal stenosis. Ligamentum flavum hypertrophy and facet joint arthropathy augment the neural compramise. Spinal Cord and Nerve Roots: Conus medullaris terminates at the L1 level without abnormality. Nerve roots appear compromised as multiple levels as described above. The lower thoracic spinal cord, conus medullaris, and cauda equina nerve roots are unremarkable. Soft Tissues: Paraspinal soft tissues appear normal without evidence of abnormal signal intensity or mass lesions. No abnormally enhancing soft tissue masses. IMPRESSION: 1. Multilevel degenerative changes of the lumbar spine, most pronounced at L3-L4 ,L4-L5 and L5-S1, with combined disc, facet, and ligamentous elements resulting in moderate spinal canal stenosis at L5-S1, and significant neural foraminal narrowing as described above. 2. L2-L3 disc high T2 and STIR signal with nor,mal signal of the related vertebral endplates, suggesting possible discitis. 3. Scoliosis and vertebral alignment abnormalities were noted. Electronically signed by Dorian Sampson 04-16-2025 4:21 PM PG Care Time/CCT Total # of Minutes Spent Total Time Spent with Patient: Total time spent is greater than 50% in coordination of care (as documented) at patient's floor/unit and/or counseling patient: Coding Level of Care Code 75536 SUB INP/OBS CARE 3/50MIN Diagnoses Hyponatremia E87.1 Degenerative lumbar spinal stenosis M48.061 Lumbar back pain with radiculopathy affecting right lower extremity M54.16 Right foot drop M21.371 Constipation K59.00 Primary hypertension I10 Hypertension type: primary hypertension Hypothyroidism E03.9 Left bundle branch block I44.7 Acid reflux disease K21.9 Hernia, mesocolon K45.8 Bradycardia R00.1 (6) Hypertension Hypertension type: primary hypertension Qualified Code(s): I10 - Essential (primary) hypertension
[2025-04-16] MEDS: HYDROmorphone INJ 0.5 MG/0.5 ML SYR IV ONE (12:29)
[2025-04-16] MEDS: HYDROmorphone INJ 0.5 MG/0.5 ML SYR IV PRN (13:00)
[2025-04-16] MEDS: GADOBUTROL 65ML VIAL IV ONE (13:23)
[2025-04-16] MEDS: HYDROCORTISONE HC 2.5% CRM 30GM TUBE EXT SCH (13:38)
--- NOTE | 2025-04-16 16:21 | Magnetic Resonance Report ---
EXAM: MR lumbar spine wo/w con CLINICAL HISTORY: s/p L5-S1 steroid injection; right foot drop; pain. TECHNIQUE: MRI of the lumbar spine was performed with and without the administration of intravenous contrast. 8.5mL Gadavist intraevnous contrast was administered. Sequences obtained include sagittal T1-weighted, T2-weighted, STIR (Short Tau Inversion Recovery), and axial T2-weighted sequences. COMPARISON: none. FINDINGS: Vertebral Alignment: Right scoliosis of the lumbar spine noted. L5 over S1 grade I anterolisthesis. L4-L5, L3-L4, and L2-L3 subtle degree retrolisthesis noted. Vertebral Bodies and Intervertebral Discs: Normal vertebral body height, no fracture identified. Moderate spondylosis of the lumbar spine with marginal osteophytosis, heterogenous signals referring to fatty bone marrow reconversion. L2-L3 disc high T2 and STIR signal with nor,mal signal of the related vertebral endplates, suggesting possible dicitis. [id number] analysis: T12-L1: There is no significant disc pathology. No spinal canal stenosis. No neural foraminal stenosis.No ligamentum flavum hypertrophy and facet joint arthropathy. L1-L2: There is a 5 mm posterior central and left paracentral disc/ osteophyte complex protrusion abutting the ventral theca and causing moderate left foraminal stenosis encroaching upon the left exiting nerve root. No spinal canal stenosis. No neural foraminal stenosis. Ligamentum flavum hypertrophy and facet joint arthropathy augment the neural compramise. L2-L3: There is a 3 mm posterior disc/osteophyte protrusion abutting the ventral theca with moderate left side exit neural forminal encroachment, No spinal canal stenosis. . Ligamentum flavum hypertrophy and facet joint arthropathy augment the neural compramise. L3-L4: There is a 4 mm disc/osteophyte complex bulge indenting the ventrla theca with severe right side and moderate left side exit neural foraminal narrowing impenging both exiting nerve roots. mild spinal canal stenosis. Ligamentum flavum hypertrophy and facet joint arthropathy augment the neural compramise. L4-L5: There is a 4 mm diffuse disc bulge indenting the ventral theca with severe right side and moderate left side exit neural formainal stenosis impenging both exiting nerve roots. No spinal canal stenosis. Ligamentum flavum hypertrophy and facet joint arthropathy augment the neural compramise. L5-S1: There is a 6 mm diffuse disc bulge abutting the ventrla theca with moderate bilateral exit neural formainal narrowing, moderate spinal canal stenosis. Ligamentum flavum hypertrophy and facet joint arthropathy augment the neural compramise. Spinal Cord and Nerve Roots: Conus medullaris terminates at the L1 level without abnormality. Nerve roots appear compromised as multiple levels as described above. The lower thoracic spinal cord, conus medullaris, and cauda equina nerve roots are unremarkable. Soft Tissues: Paraspinal soft tissues appear normal without evidence of abnormal signal intensity or mass lesions. No abnormally enhancing soft tissue masses. IMPRESSION: 1. Multilevel degenerative changes of the lumbar spine, most pronounced at L3-L4 ,L4-L5 and L5-S1, with combined disc, facet, and ligamentous elements resulting in moderate spinal canal stenosis at L5-S1, and significant neural foraminal narrowing as described above. 2. L2-L3 disc high T2 and STIR signal with nor,mal signal of the related vertebral endplates, suggesting possible dicitis. 3. Scoliosis and vertebral alignment abnormalities were noted. Electronically signed by Dorian Sampson 04-16-2025 4:21 PM
[2025-04-16] MEDS: FUROSEMIDE 20 MG TAB PO SCH (17:23)
[2025-04-16 17:35] LABS: Anion Gap 8 (3-11); Blood Urea Nitrogen 62 mg/dl (6-23); Calcium 8.9 mg/dl (8.6-10.3); Carbon Dioxide 25 mmol/L (21-32); Chloride 88 mmol/L (98-107); Creatinine Clr Calc Pharmacy 36.3 ml/min; Glucose 125 mg/dl (70-99(Fasting)); Potassium 3.7 mmol/L (3.5-5.1); Sodium 121 mmol/L (136-145)
[2025-04-16] MEDS: SODIUM CHLORIDE 1 GM TABLET PO SCH (19:55)
[2025-04-16] MEDS: ONDANSETRON ORAL SOLN 0.8 MG/1 ML PO STA (21:57)
[2025-04-17 07:26] LABS: Anion Gap 7.0 (3-11); Blood Urea Nitrogen 55.0 mg/dl (6-23); Calcium 8.9 mg/dl (8.6-10.3); Carbon Dioxide 28.0 mmol/L (21-32); Chloride 89.0 mmol/L (98-107); Creatinine Clr Calc Pharmacy 37.0 ml/min; Glucose 106.0 mg/dl (70-99(Fasting)); Magnesium 2.2 mg/dl (1.7-2.4); Potassium 4.0 mmol/L (3.5-5.1); Sodium 124.0 mmol/L (136-145)
[2025-04-17] MEDS: HEPARIN SOD 5,000 UNIT/0.5 ML VIAL SQ SCH (09:27)
[2025-04-17] MEDS ORDERED: Nursing to Pharmacy Communication SCH (11:45)
--- NOTE | 2025-04-17 11:53 | Nephrology Progress Note ---
Date of Service April 17, 2025 Assessment & Plan (1) Acute hyponatremia: (2) Bilateral leg edema: Plan 89 y o F with PMH of hypertension, hyperlipidemia, venous insufficiency, hypothyroidism, chronic hyponatremia, admitted to [facility] shortness with 1 week of poor PO intake, constipation as well as 1 day of nausea with vomiting. She was found to have severe hyponatremia with Na 111. HCTZ was stopped. w/u unremarkable. Received 3% NaCl x5 total since admission. Na has been slowly improving. Na this morning was 124, overall feeling better. LE edema worsened --increase Lasix to 40 mg po bid --continue salt tab to 2 gm bid --Continue to monitor serum sodium closely --keep stacy catheter for now --keep leg elevated, consider compression stockings --Thiazide diuretics should be avoided in future. Admission and Anticipated Discharge Date Admission Date: April 13, 2025 Sergio Freeman was seen and evaluated this morning, family was at bedside. She reports overall feeling much better but LE edema worsened. Denies shortness of breath. Sodium improved to 124 this morning. Other electrolyte acceptable. Decent urine output, net negative. Review of Systems Review of Systems: All systems reviewed & are unremarkable except as noted in Subjective Physical Exam Constitutional: WD/WN, vitals as above no acute distress Eyes: + anicteric sclerae Respiratory: no respiratory distress Auscultation: lungs clear to auscultation bilaterally Cardiovascular: Rate/Rhythm: regular rate and regular rhythm Heart Sounds: normal S1 and normal S2 Extremities: + edema (2 to 3 + b/l LE edema) Skin: no rashes, warm and dry Neurologic: no focal motor deficits and not confused Psychiatric: Orientation: alert and oriented x 3 Results & Data Vital Signs (Past 12 Hours) Vital Signs Temp Pulse Pulse Resp BP Pulse Ox O2 Del Method 04/17/25 08:57 36.6 C 54 L 18 153/72 H 97 Room Air 04/17/25 08:43 51 L PG Care Time/CCT Total # of Minutes Spent Total Time Spent with Patient: Total time spent is greater than 50% in coordination of care (as documented) at patient's floor/unit and/or counseling patient: Coding Level of Care Code 81695 SUB INP/OBS CARE 2/35MIN Diagnoses Acute hyponatremia E87.1 Bilateral leg edema R60.0
--- NOTE | 2025-04-17 12:09 | Electrocardiogram Report ---
Test Reason : Blood Pressure : */* mmHG Vent. Rate : 58 BPM Atrial Rate : 58 BPM P-R Int : 184 ms QRS Dur : 138 ms QT Int : 494 ms P-R-T Axes : 21 -15 151 degrees QTcB Int : 484 ms Sinus bradycardia with Premature atrial complexes with Aberrant conduction Left bundle branch block Abnormal ECG No previous ECGs available Confirmed by Peng Youssef ([id number] on 04/17/2025 12:09:29 PM Referred By: REFERRED SELF Confirmed By: Peng Youssef
[2025-04-17] MEDS: ONDANSETRON 4 MG OD TAB PO PRN (13:17)
[2025-04-17] MEDS: SUCRALFATE 1 GM/10 ML UDC PO SCH (16:03)
[2025-04-17] MEDS: FUROSEMIDE 40 MG TAB PO SCH (16:33)
--- NOTE | 2025-04-17 18:33 | Hospitalist Progress Note ---
Date of Service April 17, 2025 Assessment & Plan (1) Hyponatremia: (2) Degenerative lumbar spinal stenosis: (3) Lumbar back pain with radiculopathy affecting right lower extremity: (4) Right foot drop: (5) Constipation: (6) Hypertension: (7) Hypothyroidism: (8) Left bundle branch block: (9) Acid reflux disease: (10) Hernia, mesocolon: (11) Bradycardia: Plan 89yo female with history of 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 She was seen by her PCP on day of admission at the [place] office due to persistent nausea, dry heaves/vomiting, poor PO intake, right foot drop/right foot (and leg) "dragging" when she was walking, intractable right leg pain, and concerns for hernia that was seen on recent CT scan at [facility] on 04/11/25. When she presented to [facility] her sodium was found to be 109; about 1 week ago it was 130. 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 -with ?L2/L3 discitis on MRI l-spine could this be the trigger? -presenting Na level 109 -her acute hyponatremia was incredibly refractory at first to therapy -required 3% saline x 2, copious salt tabs, urea, and then diuretic therapy (lasix) -she remains euvolemic on exam -LE edema is chronic although worse than baseline; no signs of volume overload/CHF -recent lumbar steroid injection, vomiting, etc may also have contributed to acute hyponatremia -surprisingly, despite the acuity and the severity of her hyponatremia, she never had acute mental status changes - although, retrospectively, she had been very tired at presentation and this is much improved/resolved -fortunately no seizures either -appreciate nephrology consult & assistance -cont NaCl tabs 2gm BID -cont lasix - increasing to 40mg BID per nephro recs -continue serial Na levels -Na today now 124 -cortisol level wnl -TSH level wnl -cont to hold HCTZ; would not resume at discharge #acute/chronic low back pain, RLE radicular pain, and new onset right foot drop - prior to admission - -foot drop IS resolved; RLE pain and weakness has improved -still c/o what sounds like proximal thigh radicular pain b/l -she had an epidural steroid injection at L5-S1 on 04/05/25 by pain management -for acute pain - norco 7.5's prn; cont chronic zanaflex prn (chronic med for her) -MRI lumbar spine w/ contrast 04/16/25 -- NO hematoma, NO cord compromise; however, ?L2/L3 discitis -checked sed rate and crp - both very normal -blood cx's negative -no fever, no leukocytosis -[id number], in light of worsening l-spine pain, will ask ortho-spine to consult for their opinion on Friday -may need bone biopsy from this location to exclude discitis -if she indeed has discitis this could have triggered her SIADH #poor oral intake/anorexia, nausea/vomiting - resolved - -04/11 CT abd/pelvis done at [facility] did not show signs of ileus or obstruction -KUB x-ray here without obstruction -LFTs, lipase wnl -CT did mention findings that could fit with gastritis; thus, increased PPI to twice daily (was taking QD at home) + added carafate 1gm QID #mesosigmoid colon hernia - -seen on CT a/p on 04/11/25 at outside hospital -no obstruction seen on that CT -this is a form of internal hernia -doubt contributing to current symptoms -informally d/w on-call general surgery on hospital day #1 - nothing to do at this time #hypothyroidism - -TSH wnl -cont synthroid #HTN - -uncontrolled initially but now improved; suspect 2nd to pain at ER presentation -cont enalapril -cont lasix orally -amlodipine stopped - concern it was contributing to LE edema #?UTI - -s/p rocephin in ER -urine cx with aerococcus - likely contamination; all abx stopped #GERD - -PPI twice daily -carafate QID -much improved #DVT proph - -chemical means had been on hold until L-spine MRI was completed -since MRI did not show hematoma thus added heparin SC 5000 BID -can always stop such if she needs L2/L3 biopsy #LBBB - -chronic, no ischemic symptoms #bradycardia - -40s/50s -EKG with sinus kelle and LBBB - chronic -no pauses or block on tele to date -TSH wnl -suspect sinus node dysfunction -follow carefully #constipation - -likely 2nd to narcotics over the last week for her back -resolved -cont miralax for maintenance #LE edema - -chronic, but much worse this hospitalization despite copious use of IV/PO diuretics -she does sit in chair all day/all night and, at minimum, has venous insufficiency and dependent edema -recommended dopplers of legs to r/o DVT but she declined the study, saying she won't/can't lay flat for it -encouraged her to get the study - still declined -daughters were at bedside during this discussion -cont lasix -would benefit from compression but not sure she would tolerate such -perhaps agreeable to tubigrips?? updated pt's daughters at bedside today MRI results reviewed discussed plan ortho-spine consult on Friday Admission and Anticipated Discharge Date Admission Date: April 13, 2025 Subjective tele overnight - sinus kelle; no pauses, no AV block, no other arrhythmia patient ambulating better in the room in fact she can stand with the assistance of her walker and then start to walk unassisted RLE weakness essentially resolved her low back pain continues to be severe, however also cont to have mild discomfort in the b/l prox thighs - "shooting" pain eating well multiple family including daughters at bedside we discussed her LE edema and her l-spine MRI w/ ?discitis with respect to LE edema - offered to get dopplers to r/o DVT but she was adamant about not getting them stating "I won't lie down" stated we could raise the head of bed, keep her comfortable, etc -- still wanted to defer Review of Systems Review of Systems: CV - no chest pain pulm - no dyspnea or HARPER GI - no abd pain or N/V Physical Exam Physical Exam: gen - sitting in chair, gets herself standing on her own w/ use of her walker; looks well, cracking jokes; with movement she does have pain in back HENT - MMM neck - no JVD heart - RRR, s1 s2, no murmur lungs - CTA b/l abd - soft, BS+, NT, ND, no HSM ext - 3+ pitting edema b/l feet & shins up to the knees - worse than prior; pulses b/l feet 2+ psych - awake, alert, oriented x 3 Results & Data Results & Data Vital Signs (Past 12 Hours) Vital Signs Temp Pulse Pulse Resp BP Pulse Ox O2 Del Method 04/17/25 15:12 36.7 C 45 L 18 138/75 97 Room Air 04/17/25 12:08 36.4 C L 57 L 18 140/55 L 97 Room Air 04/17/25 08:57 36.6 C 54 L 18 153/72 H 97 Room Air 04/17/25 08:43 51 L Laboratory Results Laboratory Results - last 24 hr 04/16/25 04/17/25 16:40 06:43 Sodium 124 L Potassium 4.0 Chloride 89 L Carbon Dioxide 28 Anion Gap 7 BUN 55 H Creatinine 1.03 Est Cr Clr Drug Dosing 37.0 eGFR 51.97 BUN/Creatinine Ratio 53.4 H Glucose 106 H Calcium 8.9 Magnesium 2.2 C-Reactive Protein < 0.50 Vitamin B12 > 1500 H PG Care Time/CCT Total # of Minutes Spent Total Time Spent with Patient: Total time spent is greater than 50% in coordination of care (as documented) at patient's floor/unit and/or counseling patient: Coding Level of Care Code 36387 SUB INP/OBS CARE 3/50MIN Diagnoses Hyponatremia E87.1 Degenerative lumbar spinal stenosis M48.061 Lumbar back pain with radiculopathy affecting right lower extremity M54.16 Right foot drop M21.371 Constipation K59.00 Primary hypertension I10 Hypertension type: primary hypertension Hypothyroidism E03.9 Left bundle branch block I44.7 Acid reflux disease K21.9 Hernia, mesocolon K45.8 Bradycardia R00.1 (6) Hypertension Hypertension type: primary hypertension Qualified Code(s): I10 - Essential (primary) hypertension
[2025-04-18 06:11] LABS: Hematocrit (blood only) 32.7 % (37.0-47.0); Hemoglobin 11.5 g/dl (12.0-16.0); Mean Corpuscular Hemoglobin 32.6 pg (25.0-34.0); Mean Corpuscular Volume 92.6 fL (80.0-100.0); Platelet Count 174 K/uL (130-400); RDW Standard Deviation 40.2 fL (36.4-46.3); Red Blood Count 3.53 M/uL (4.20-5.40); White Blood Count 6.53 K/ul (4.8-10.8)
[2025-04-18 06:23] LABS: Anion Gap 7.0 (3-11); Blood Urea Nitrogen 44.0 mg/dl (6-23); Calcium 9.0 mg/dl (8.6-10.3); Carbon Dioxide 29.0 mmol/L (21-32); Chloride 90.0 mmol/L (98-107); Creatinine Clr Calc Pharmacy 30.8 ml/min; Glucose 94.0 mg/dl (70-99(Fasting)); Potassium 3.9 mmol/L (3.5-5.1); Sodium 126.0 mmol/L (136-145)
--- NOTE | 2025-04-18 10:14 | Nephrology Progress Note ---
Date of Service April 18, 2025 Assessment & Plan (1) Acute hyponatremia: (2) Bilateral leg edema: Plan 89 y o F with PMH of hypertension, hyperlipidemia, venous insufficiency, hypothyroidism, chronic hyponatremia, admitted to [facility] shortness with 1 week of poor PO intake, constipation as well as 1 day of nausea with vomiting. She was found to have severe hyponatremia with Na 111. HCTZ was stopped. w/u unremarkable. Received 3% NaCl x5 total since admission. Na has been slowly improving. Na this morning was 126, overall feeling better. LE edema worsened. waiting on ortho eval for ? Discitis on MRI --continue Lasix 40 mg po bid but if she is being discharged --continue salt tab 2 gm bid --Continue to monitor serum sodium closely, recommend monitoring for next 24 h --remove stacy catheter --keep leg elevated, consider compression stockings but she refused using the compression stockings in hospital. --Thiazide diuretics should be avoided in future. Admission and Anticipated Discharge Date Admission Date: April 13, 2025 Sergio Freeman was seen and evaluated this morning, with family at bedside and on the phone. She reports overall feeling OK but eager to go home. LE edema worsened but she is not bothered by it. Denies shortness of breath. Sodium improved to 126 this morning. Other electrolyte acceptable. Decent urine output, net negative. Review of Systems Review of Systems: All systems reviewed & are unremarkable except as noted in Subjective Physical Exam Constitutional: WD/WN, vitals as above no acute distress Eyes: + anicteric sclerae Neck: normal visual inspection Respiratory: no respiratory distress Auscultation: lungs clear to auscultation bilaterally Cardiovascular: Rate/Rhythm: regular rate and regular rhythm Heart Sounds: normal S1 and normal S2 Extremities: + edema (3 + b/l LE edema) Skin: no rashes, warm and dry Neurologic: no focal motor deficits and not confused Psychiatric: Orientation: alert and oriented x 3 Results & Data Vital Signs (Past 12 Hours) Vital Signs Temp Pulse Pulse Resp BP Pulse Ox O2 Del Method 04/18/25 09:20 Room Air 04/18/25 09:20 52 L 04/18/25 07:53 36.4 C L 53 L 18 144/72 H 94 Room Air 04/18/25 03:38 36.6 C 58 L 18 170/79 H 98 Room Air 04/17/25 23:39 36.5 C 56 L 16 127/59 L 96 Room Air PG Care Time/CCT Total # of Minutes Spent Total Time Spent with Patient: Total time spent is greater than 50% in coordination of care (as documented) at patient's floor/unit and/or counseling patient: Coding Level of Care Code 10540 SUB INP/OBS CARE 2/35MIN Diagnoses Acute hyponatremia E87.1 Bilateral leg edema R60.0
--- NOTE | 2025-04-18 11:20 | Orthopedic Consultation ---
Date of Consultation April 18, 2025 Assessment & Plan (1) Lumbar back pain with radiculopathy affecting right lower extremity: Assessment lumbar spondylosis with radiculopathy. Plan at this time I had the opportunity to review the patient's MRI. I do not appreciate evidence of discitis. I do appreciate significant multilevel spondylosis with severe spinal stenosis neuroforaminal disease most impressive at L5-S1. I had a lengthy discussion today with the patient and her family reviewing MRI findings and clinical course. We all agree would like to avoid surgical intervention if possible. I did state that if there are any further declines in status or return of symptoms that the I would be notified and can reevaluate her case. History of Present Illness Reason for Consultation: Back and leg pain Attending Physician: Guanako Nova MD History of Present Illness This a very pleasant 89-year-old female who presents to the hospital with multiple medical issues as well as significant right sciatica and foot drop. As of this morning she is feeling better regarding her back and leg symptoms. She states her ambulation is improved. And she is much more comfortable. Allergies Allergy/AdvReac Type Severity Reaction Status Date / Time metoclopramide Allergy Severe tardive Verified 04/13/25 15:06 dyskinesia meloxicam Allergy Intermediate GI SYMPTOMS Verified 04/13/25 15:06 sulfamethoxazole Allergy Intermediate GI SYMPTOMS Verified 04/13/25 15:06 trimethoprim Allergy Intermediate GI SYMPTOMS Verified 04/13/25 15:06 Home Medications Medication Instructions Recorded Confirmed Type acetaminophen 500 mg tablet 1,000 mg PO DIRECTED PRN fever 02/22/19 04/13/25 History or pain ascorbic acid (vitamin C) 500 mg 500 mg PO QAM 02/22/19 04/13/25 History tablet calcium 600 mg (as 1 tab PO DAILY 02/22/19 04/13/25 History carbonate)-vitamin D3 5 mcg (200 unit) tablet fluticasone propionate 50 2 sprays intranasal DAILY PRN 02/22/19 04/13/25 Hi story mcg/actuation nasal Allergy Symptoms #1 g spray,suspension cyanocobalamin (vitamin B-12) 1,000 mcg PO DAILY #30 tabs 11/25/22 04/13/25 Rx 1,000 mcg tablet aspirin 81 mg tablet,delayed 81 mg PO 3XWK 05/25/24 04/13/25 History release (Crystal Low Dose Aspirin) cranberry 500 mg capsule 500 mg PO 3XWK 05/25/24 04/13/25 History glucosamine sulfate 500 mg capsule 500 mg PO DAILY 05/25/24 04/13/25 History omeprazole 40 mg capsule,delayed 40 mg PO DAILY #90 caps 08/02/24 04/13/25 Rx release potassium chloride 10 mEq 10 meq PO 3XWK #36 tabs 09/14/24 04/13/25 Rx tablet,extended release nitroglycerin 0.4 mg sublingual 0.4 mg sublingual Q5M PRN Angina 11/16/24 04/13/25 Rx tablet #20 tabs triamterene 37.5 1 tab PO DAILY #90 tabs 12/20/24 04/13/25 Rx mg-hydrochlorothiazide 25 mg tablet furosemide 20 mg tablet (Lasix) 20 mg PO DAILY #30 tabs 02/14/25 04/13/25 Rx simvastatin 20 mg tablet 20 mg PO DAILY #90 tabs 03/04/25 04/13/25 Rx amlodipine 5 mg tablet 5 mg PO DAILY #90 tabs 03/08/25 04/13/25 Rx levothyroxine 25 mcg tablet 25 mcg PO DAILY #90 tabs 03/08/25 04/13/25 Rx benazepril 40 mg tablet 40 mg PO QAM #90 tabs 03/14/25 04/13/25 Rx tizanidine 2 mg tablet 2 mg PO Q8H PRN muscle spasticity 03/14/25 04/13/25 Rx #90 tabs ondansetron 4 mg disintegrating 4 mg PO Q8H PRN nausea and 04/08/25 04/13/25 Rx tablet vomiting #12 tabs oxycodone 5 mg tablet 5 mg PO Q4H PRN pain #15 tabs 04/08/25 04/13/25 Rx clonazepam 0.5 mg tablet 0.5 mg PO HS anxiety 04/13/25 04/13/25 History lidocaine 4 % topical patch 1 patch topical DAILY PRN pain 04/13/25 04/13/25 History Patient History Medical History Acid reflux disease Psoriasis Rheumatoid arthritis Vitamin D deficiency Anxiety Diastolic dysfunction Hearing deficit Hyperlipidemia Hyperplastic polyps of stomach Hyponatremia Scoliosis Left bundle branch block Idiopathic peripheral neuropathy Generalized osteoarthritis of multiple sites Paroxysmal atrial tachycardia History of colon polyps Hypothyroidism Hypertension Lumbar spinal stenosis Lumbar radiculopathy, right 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 Age related osteoporosis Wears hearing aid in both ears Osteoarthritis History of gastric polyp Hyperlipidemia Left bundle branch block Peripheral neuropathy Surgical History History of dilatation and curettage History of open reduction and internal fixation (ORIF) procedure 1985 left--hardware removed History of esophagogastroduodenoscopy (EGD) History of tooth extraction History of phacoemulsification of cataract of both eyes with intraocular lens implantation Hx of cholecystectomy History of thyroidectomy, subtotal History of colonoscopy Family History Grandmother (Paternal) Cardiomegaly Father Suicide Hypertension Aunt Scleroderma Mother Suicide Brother Family history of diabetes mellitus at age 34 Prostate cancer Other No family history of adverse response to anesthesia Denies family history of Ovarian cancer Myocardial infarction Breast cancer Colorectal cancer Social History Smoking Status: Never smoker Second Hand Exposure: No; Do You Dip or Chew Tobacco: No; Hx Alcohol Use: No Hx Substance Use: No Preferred Language: Russian Communication Ability: Effective Visual Impairment: Partially Limited Hearing Ability: Use of Hearing Aid Outpatient Clerk Required: No Beliefs That Will Affect Care: None marital status: / Current Living Situation: Family Current Living Situation Comment: lives with daughter current occupational status: retired How many Children do You have: 6 How many Children do You have Comment: 5 alive 1 Other Information That Helps Us Care for You: No Feels Safe at Home: Yes Safety Concerns: Feels Safe At This Time Childhood Exposure to Second-Hand Smoke: Yes Diet: low carbohydrate, low salt and regular caffeine: Yes during the past year weight has: remained stable Dental Care, Regularly: Yes Physical Activity Frequency: Does not Exercise Seatbelt Use: always Sunscreen Use: No Gender Identity: Female Assistive Devices: Walker Physical Exam Physical Exam: Patient is in the chair at the bedside. Her family is in the room with her. She does have some pitting edema to the lower extremities. Reasonable etienne ntarflexion dorsiflexion strength bilaterally. Sensory symmetric and intact. Results & Data Vital Signs (Past 12 Hours) Vital Signs Temp Pulse Pulse Resp BP Pulse Ox O2 Del Method 04/18/25 09:20 Room Air 04/18/25 09:20 52 L 04/18/25 07:53 36.4 C L 53 L 18 144/72 H 94 Room Air 04/18/25 03:38 36.6 C 58 L 18 170/79 H 98 Room Air 04/17/25 23:39 36.5 C 56 L 16 127/59 L 96 Room Air
--- NOTE | 2025-04-18 15:09 | XRay Report ---
LUMBAR SPINE 3 VIEWS CLINICAL HISTORY: Low back pain. FINDINGS: 3 views of the lumbar spine are correlated with abdominal CT dated 04/11/2025. The skeletal structures are osteopenic. The examination is degraded by moderate dextrocurvature which is centered at L2-L3. There is no radiographic evidence of acute fracture or malalignment. Vertebral body height appears maintained throughout the lumbar spine. Alignment is grossly preserved. There is straightenin g of the lumbar lordosis. Large anterior and lateral marginal osteophytes are seen throughout. The tr ansverse and spinous processes appear intact. Advanced facet arthropathy is seen throughout the lumba r spine. Moderate to severe disc space narrowing is noted at all lumbar levels with multilevel flatbed driver ior disc osteophyte complexes. The visualized bony pelvis appears intact. Degenerative sclerosis is s een in the sacroiliac joints. Arthritic change is noted in the hips. There is no bowel obstruction. P hleboliths are seen in the pelvis. Cholecystectomy clips are noted in the right upper quadrant. IMPRESSION: 1. No acute bony abnormality is seen involving the lumbar spine. 2. Osteopenia with advanced lumbosacral spondylosis and scoliosis as above. Electronically signed by: Jose Manuel Parker M.D. 04/18/2025 3:08 PM
--- NOTE | 2025-04-18 18:28 | Hospitalist Progress Note ---
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 She was seen by her PCP on day of admission at the [place] office due to persistent nausea, dry heaves/vomiting, poor PO intake, right foot drop/right foot (and leg) "dragging" when she was walking, intractable right leg pain, and concerns for hernia that was seen on recent CT scan at [facility] on 04/11/25. When she presented to [facility] her sodium was found to be 109; about 1 week ago it was 130. 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 -presenting Na level 109 -her acute hyponatremia was incredibly refractory at first to therapy -required 3% saline x 2, copious salt tabs, urea, and then diuretic therapy (lasix) -she remains euvolemic on exam -LE edema is chronic although improved with diuretics & compression -recent lumbar steroid injection, vomiting, etc may also have contributed to acute hyponatremia -surprisingly, despite the acuity and the severity of her hyponatremia, she never had acute mental status changes - although, retrospectively, she had been very tired at presentation and this is much improved/resolved -fortunately no seizures either -appreciate nephrology consult & assistance -cont NaCl tabs 2gm BID -cont lasix 40mg BID per nephro recs -continue serial Na levels -Na today now 126 -cortisol level wnl -TSH level wnl -cont to hold HCTZ; would not resume at discharge #acute/chronic low back pain, RLE radicular pain, and new onset right foot drop - prior to admission - -foot drop IS resolved; RLE pain and weakness has improved tremendously since admission -she had an epidural steroid injection at L5-S1 on 04/05/25 by pain management -for acute pain - norco 7.5's prn; cont chronic zanaflex prn (chronic med for her) -MRI lumbar spine w/ contrast 04/16/25 -- NO hematoma, NO cord compromise; however, ?L2/L3 discitis -checked sed rate and crp - both very normal -blood cx's negative -no fever, no leukocytosis -asked Dr Mcfadden from ortho-spine to consult -- he does not feel the L2/L3 findings are from discitis; further, I reviewed the case with radiology today; they, too, do not believe the L2/L3 findings represent discitis -thus, no plans for bone bx #poor oral intake/anorexia, nausea/vomiting - resolved - -04/11 CT abd/pelvis done at [facility] did not show signs of ileus or obstruction -KUB x-ray here without obstruction -LFTs, lipase wnl -CT did mention findings that could fit with gastritis; thus, increased PPI to twice daily (was taking QD at home) + added carafate 1gm QID -at d/c will send home with twice daily PPI #mesosigmoid colon hernia - -seen on CT a/p on 04/11/25 at outside hospital -no obstruction seen on that CT -this is a form of internal hernia -doubt contributing to current symptoms -informally d/w on-call general surgery on hospital day #1 - nothing to do at this time -can send to gen surg post-discharge #hypothyroidism - -TSH wnl -cont synthroid #HTN - -uncontrolled initially but now improved; suspect 2nd to pain at ER presentation -cont enalapril -cont lasix orally -amlodipine stopped - concern it was contributing to LE edema #?UTI - -s/p rocephin in ER -urine cx with aerococcus - likely contamination; all abx stopped #GERD - -PPI twice daily -carafate QID -much improved #DVT proph - -cont SC heparin #LBBB - -chronic, no ischemic symptoms #bradycardia - -40s/50s but no symptoms -EKG with sinus kelle and LBBB - chronic -no pauses or block on tele to date -TSH wnl -suspect sinus node dysfunction -follow carefully -pt and her family made aware of bradycardia #constipation - -likely 2nd to narcotics -resolved -cont miralax for maintenance #LE edema - -chronic, likely venous insuff -recommended venous dopplers but patient declined them -in compression stockings -on lasix -edema improved today updated pt's daughters at bedside today if Na level is 128/129 tomorrow can likely d/c home if PT eval goes well Admission and Anticipated Discharge Date Admission Date: April 13, 2025 Subjective no events overnight tele - sinus kelle she is ambulating in the room with her walker and some stand-by assist by her daughters who are very attentive eating well no nausea norco working for her chronic back pain seen by Dr Mcfadden - discitis felt highly unlikely case also reviewed with radiology -they, too, feel discitis is unlikely Review of Systems Review of Systems: cv - no cp; edema improved; using compression stockings pulm - no dyspnea GI - no N/V/pain Physical Exam Physical Exam: gen - sitting in chair, best she has looked the entire stay HENT - MMM neck - no JVD heart - RRR, s1 s2, no murmur lungs - CTA b/l abd - soft, BS+, NT, ND, no HSM ext - 1-2+ edema b/l feet & shins up to the knees; compression stockings in place; pulses b/l feet 2+ psych - awake, alert, oriented x 3 Results & Data Results & Data Vital Signs (Past 12 Hours) Vital Signs Temp Pulse Pulse Resp BP Pulse Ox O2 Del Method 04/18/25 16:43 67 04/18/25 15:13 36.4 C L 55 L 20 109/61 97 Room Air 04/18/25 11:23 36.3 C L 58 L 20 166/81 H 98 Room Air 04/18/25 09:20 Room Air 04/18/25 09:20 52 L 04/18/25 07:53 36.4 C L 53 L 18 144/72 H 94 Room Air Laboratory Results Laboratory Results - last 24 hr 04/18/25 05:53 WBC 6.53 RBC 3.53 L Hgb 11.5 L Hct 32.7 L MCV 92.6 MCH 32.6 MCHC 35.2 RDW Std Deviation 40.2 RDW Coeff of Sarah 11.9 Plt Count 174 MPV 9.0 L Sodium 126 L Potassium 3.9 Chloride 90 L Carbon Dioxide 29 Anion Gap 7 BUN 44 H Creatinine 1.19 Est Cr Clr Drug Dosing 30.8 eGFR 43.71 BUN/Creatinine Ratio 37.0 H Glucose 94 Calcium 9.0 PG Care Time/CCT Total # of Minutes Spent Total Time Spent with Patient: Total time spent is greater than 50% in coordination of care (as documented) at patient's floor/unit and/or counseling patient: Coding Level of Care Code 10567 SUB INP/OBS CARE 235MIN Diagnoses Hyponatremia E87.1 Degenerative lumbar spinal stenosis M48.061 Lumbar back pain with radiculopathy affecting right lower extremity M54.16 Right foot drop M21.371 Constipation K59.00 Primary hypertension I10 Hypertension type: primary hypertension Hypothyroidism E03.9 Left bundle branch block I44.7 Acid reflux disease K21.9 Hernia, mesocolon K45.8 Bradycardia R00.1 (6) Hypertension Hypertension type: primary hypertension Qualified Code(s): I10 - Essential (primary) hypertension
[2025-04-19 06:43] LABS: Anion Gap 7.0 (3-11); Blood Urea Nitrogen 37.0 mg/dl (6-23); Calcium 8.9 mg/dl (8.6-10.3); Carbon Dioxide 31.0 mmol/L (21-32); Chloride 90.0 mmol/L (98-107); Creatinine Clr Calc Pharmacy 27.3 ml/min; Glucose 94.0 mg/dl (70-99(Fasting)); Potassium 4.0 mmol/L (3.5-5.1); Sodium 128.0 mmol/L (136-145)
--- NOTE | 2025-04-19 10:29 | Nephrology Progress Note ---
Date of Service April 19, 2025 Assessment & Plan (1) Acute hyponatremia: (2) Bilateral leg edema: Plan 89 y o F with PMH of hypertension, hyperlipidemia, venous insufficiency, hypothyroidism, chronic hyponatremia, admitted to [facility] shortness with 1 week of poor PO intake, constipation as well as 1 day of nausea with vomiting. She was found to have severe hyponatremia with Na 111. HCTZ was stopped. w/u unremarkable. Received 3% NaCl x5 total since admission. Na has been slowly improving. Na this morning was 128, overall feeling better. LE edema stable. --advise to resume Lasix 20 mg daily on DC --continue salt tab 2 gm bid --repeat lab --keep leg elevated, consider compression stockings but she refused using the compression stockings in hospital. --Thiazide diuretics should be avoided in future. Admission and Anticipated Discharge Date Admission Date: April 13, 2025 Sergio Freeman was seen and evaluated this morning. She reports overall feeling OK but eager to go home. LE edema stable. Denies shortness of breath. Sodium improved to 128 this morning. Other electrolyte acceptable. Decent urine output, net negative. Slight increase in creatinine noted with high dose of diuretics which was stopped this morning. Review of Systems Review of Systems: Detail review of system was done, pertinent positives and negatives are mentioned above. Physical Exam Constitutional: WD/WN, vitals as above + ill appearing; no acute distress Eyes: + anicteric sclerae Respiratory: no respiratory distress Auscultation: lungs clear to auscultation bilaterally Cardiovascular: Rate/Rhythm: regular rate and regular rhythm Heart Sounds: normal S1 and normal S2 Extremities: + edema (3 + b/l LE edema) Skin: no rashes, warm and dry Neurologic: no focal motor deficits and not confused Psychiatric: Orientation: alert and oriented x 3 Results & Data Vital Signs (Past 12 Hours) Vital Signs Temp Pulse Pulse Resp BP Pulse Ox O2 Del Method 04/19/25 08:25 Room Air 04/19/25 07:52 36.5 C 64 19 154/81 H 99 Room Air 04/19/25 05:31 50 L 04/18/25 23:07 36.6 C 56 L 16 112/70 97 Room Air PG Care Time/CCT Total # of Minutes Spent Total Time Spent with Patient: Total time spent is greater than 50% in coordination of care (as documented) at patient's floor/unit and/or counseling patient: Coding Level of Care Code 78761 SUB INP/OBS CARE 2/35MIN Diagnoses Acute hyponatremia E87.1 Bilateral leg edema R60.0
[2025-04-19 10:57] VITALS: PULSE 55; RESP 20; TEMP 97.9; O2SAT 97
[2025-04-19 11:44] VITALS: BP 144/70
--- NOTE | 2025-04-19 11:54 | Discharge Summary ---
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 She was seen by her PCP on day of admission at the [place] office due to persistent nausea, dry heaves/vomiting, poor PO intake, right foot drop/right foot (and leg) "dragging" when she was walking, intractable right leg pain, and concerns for hernia that was seen on recent CT scan at [facility] on 04/11/25. When she presented to [facility] her sodium was found to be 109; about 1 week ago it was 130. 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 -presenting Na level 109 -her acute hyponatremia was incredibly refractory at first to therapy -required 3% saline x 2, copious salt tabs, urea, and then diuretic therapy (lasix) -she remains euvolemic on exam -LE edema is chronic although improved with diuretics & compression -recent lumbar steroid injection, vomiting, etc may also have contributed to acute hyponatremia -surprisingly, despite the acuity and the severity of her hyponatremia, she never had acute mental status changes - although, retrospectively, she had been very tired at presentation and this is much improved/resolved -fortunately no seizures either -appreciate nephrology consult & assistance -cont NaCl tabs 2gm BID -cont lasix 40mg BID per nephro recs -continue serial Na levels -Na today now 126 -cortisol level wnl -TSH level wnl -cont to hold HCTZ; would not resume at discharge #acute/chronic low back pain, RLE radicular pain, and new onset right foot drop - prior to admission - -foot drop IS resolved; RLE pain and weakness has improved tremendously since admission -she had an epidural steroid injection at L5-S1 on 04/05/25 by pain management -for acute pain - norco 7.5's prn; cont chronic zanaflex prn (chronic med for her) -MRI lumbar spine w/ contrast 04/16/25 -- NO hematoma, NO cord compromise; however, ?L2/L3 discitis -checked sed rate and crp - both very normal -blood cx's negative -no fever, no leukocytosis -asked Dr Mcfadden from ortho-spine to consult -- he does not feel the L2/L3 findings are from discitis; further, I reviewed the case with radiology today; they, too, do not believe the L2/L3 findings represent discitis -thus, no plans for bone bx #poor oral intake/anorexia, nausea/vomiting - resolved - -04/11 CT abd/pelvis done at [facility] did not show signs of ileus or obstruction -KUB x-ray here without obstruction -LFTs, lipase wnl -CT did mention findings that could fit with gastritis; thus, increased PPI to twice daily (was taking QD at home) + added carafate 1gm QID -at d/c will send home with twice daily PPI #mesosigmoid colon hernia - -seen on CT a/p on 04/11/25 at outside hospital -no obstruction seen on that CT -this is a form of internal hernia -doubt contributing to current symptoms -informally d/w on-call general surgery on hospital day #1 - nothing to do at this time -can send to gen surg post-discharge #hypothyroidism - -TSH wnl -cont synthroid #HTN - -uncontrolled initially but now improved; suspect 2nd to pain at ER presentation -cont enalapril -cont lasix orally -amlodipine stopped - concern it was contributing to LE edema #?UTI - -s/p rocephin in ER -urine cx with aerococcus - likely contamination; all abx stopped #GERD - -PPI twice daily -carafate QID -much improved #DVT proph - -cont SC heparin #LBBB - -chronic, no ischemic symptoms #bradycardia - -40s/50s but no symptoms -EKG with sinus kelle and LBBB - chronic -no pauses or block on tele to date -TSH wnl -suspect sinus node dysfunction -follow carefully -pt and her family made aware of bradycardia #constipation - -likely 2nd to narcotics -resolved -cont miralax for maintenance #LE edema - -chronic, likely venous insuff -recommended venous dopplers but patient declined them -in compression stockings -on lasix -edema improved today updated pt's daughters at bedside today if Na level is 128/129 tomorrow can likely d/c home if PT eval goes well Admission HPI Per Admitting Provider 89yo female with history of 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 She was seen by her PCP earlier today at the [place] office due to persistent nausea, dry heaves/vomiting, poor PO intake, right foot drop/right foot "dragging" when she walks, intractable right leg pain, and concerns for hernia that was seen on recent CT scan. When she presented today to [facility] her sodium was found to be 109; about 1 week ago it was 130. The patient has had 2 ER visits to [facility] - first on 04/07, and the 2nd on 04/11. First visit was due to back pain and RLE radicular pain; 2nd visit was due to nausea/dry heaves & lack of bowel movement. During the 2nd ER visit she underwent CT abd/pelvis showing a "mesosigmoid" hernia but no obstruction. She has been taking miralax to no avail for her constipation; last BM was 04/06/25. Of note - she was prescribed percocet at the 04/07 ER visit and she has been taking it about twice daily since then. Since late last week she has been eating/drinking poorly. It especially got worse this past Friday. She has had nausea with dry heaves, and had kathleen emesis x 3 yesterday. No fevers. With respect to her lumbar spine - had Right L5-S1 transforaminal epidural steroid injection by Dr Ledezma on 04/05/25. She has had worsening "spasms" of her RLE since that time despite the injection. Family has also noted she has been dragging her right foot since the injection. As noted above has been using percocet prn pain. Also with low back pain - this has been worse than baseline over the last few days. Pt's 2 daughters who are at bedside during the admissions process state their mother is at neurocognitive baseline today - no confusion, no lethargy, etc. Finally, patient does report she takes triamterene/HCTZ each day, and about 2-3 weeks ago - due to increasing LE edema of both legs - took about 3 days of oral lasix. During my admissions assessment the patient kept asking to sit straight up in bed or in a chair. Apparently she sleeps in a chair at night-time; she cannot sleep in a bed. Discharge Exam gen - sitting in chair, best she has looked the entire stay HENT - MMM neck - no JVD heart - RRR, s1 s2, no murmur lungs - CTA b/l abd - soft, BS+, NT, ND, no HSM ext - 1-2+ edema b/l feet & shins up to the knees; compression stockings in place; pulses b/l feet 2+ psych - awake, alert, oriented x 3 Discharge Plan Discharge Items Patient Disposition: Home - Self-Care Reason For Visit: SEVERE HYPONATREMIA Discharge Diagnosis: 1. severe hyponatremia (low sodium) - admission level 109; discharge level 128 2. severe lumbar back pain - MRI negative for hematoma or infection; severe degenerative disease of the lumbar spine seen 3. right leg weakness - resolved 4. recent discovery of abdominal hernia - follow-up with family doctor for this 5. constipation - resolved 6. bilateral leg edema 7. gastritis (irritation of your stomach - as seen on CT scan of your abdomen at [facility]) - improved Condition on Discharge: Good Activity: Resume your previous activity Activity Comment: as tolerated Non-emergency contact: Primary Care Provider Call non-emergency contact if: you have any medication questions, your symptoms worsen, your pain is not controlled, your pain is worsening and you have a fever Follow-up/Referrals: Rowena Barba DO [Primary Care Provider] - 04/26/25 10:30 am (Primary Care hospital follow up scheduled on 04/26/25 at 10:30 with Rowena Barba) Diet: Regular Ambulatory Orders: Basic Metabolic Panel (Routine) Timeframe: [id number] Location: Determined by Patient Ordered By: Guanako Kumari Attending Provider Instructions: Ms Gonzalez, You were hospitalize due to severe hyponatremia (low sodium) which required ICU level of care early in your stay. Your sodium was severely low at 109 upon arrival to [facility]. You received various treatments to bring your sodium level back up. It appears that a condition called "SIADH" was the cause of your low sodium. SIADH stands for "syndrome of inappropriate ADH secretion." ADH is a hormone made in your brain that regulates water & sodium metabolism. There are numerous things that can cause SIADH. In SIADH the hormone becomes "overzealous" or over-active which then causes the low sodium. It can be difficult to treat. We are not fully certain what led to the SIADH. You ultimately responded to the various treatments given (salt tablets, diuretics, etc) and your sodium level at discharge is 128. MRI of your lumbar spine was negative for hematoma and did not show any infection. Thus, we did not find any complications from your recent injection. Orthopedics saw you and agreed that there was nothing on the scan that was consistent with infection. Other issues addressed included constipation, back pain/right leg pain, and swelling of your legs. Recommendations - 1. have a repeat sodium level later this week either on or Friday. You don't have to fast for this blood test. You can have the labs drawn at the [place] office. 2. take salt tablets - 2 grams twice daily until instructed otherwise. Take your next dose TONIGHT. 3. take furosemide diuretic - 20mg once daily. Take a dose as soon as you get home, and then take each morning thereafter. 4. STOP triamterene-hydrochlorothiazide, amlodipine, and potassium supplement. 5. for back pain - -hydrocodone-acetaminophen 7.5mg tablet, 1 tablet every 6 hours as needed for pain -this is narcotic pain killer medicine -it can make you tired/drowsy -it can make you constipated -in some people it can make them mildly confused -you have tolerated this medicine well while in the hospital -remember that this pain killer contains Tylenol in it; thus, if you are taking this medicine, do not take extra [id number] Tylenol 6. for constipation - -miralax once or twice daily and/or -senna 2 tablets daily -shoot for a soft bowel movement every other day 7. for gastritis seen on CT scan - -HOLD your omeprazole for now -change to pantoprazole 40mg twice daily and take for 1 month -after 1 month go back to using omeprazole as previous -please talk to Dr Barba about your gastro symptoms 8. for nausea - -ondansetron 4mg every 6 hours as needed 9. since you are being prescribed the hydrocodone please do NOT take the oxyco done that was recently prescribed before this hospitalization. 10. if possible please use compression stockings on your legs to help with edema. Follow-up - see separate section Return to [facility] if - -you have fevers over 100 degrees -you have worsening shortness of breath -you have vomiting -you have abdominal pains -you have uncontrollable back pain or leg pain -any other concerns It was our pleasure to care for you! -Guanako Nova Pending Studies at Discharge: No Stand-Alone Forms: My [facility], Smoking Cessation Medications and DC Order Prescriptions: New hydrocodone-acetaminophen 7.5-325 mg Tablet 1 tab PO Q6H PRN (Reason: pain) Qty: 20 0RF pantoprazole 40 mg Tablet,Delayed Release (Dr/Ec) 40 mg PO BID 30 Days Qty: 60 0RF nystatin [Nystop] 100,000 unit/gram Powder 1 applic EXT TID PRN (Reason: yeast rash in groin) Qty: 15 0RF sodium chloride 1,000 mg Tablet,Soluble 2,000 mg PO BID Qty: 60 0RF Continued simvastatin 20 mg tablet 20 mg PO DAILY Qty: 90 3RF levothyroxine 25 mcg tablet 25 mcg PO DAILY Qty: 90 3RF benazepril 40 mg tablet 40 mg PO QAM Qty: 90 3RF tizanidine 2 mg tablet 2 mg PO Q8H PRN (Reason: muscle spasticity) Qty: 90 0RF cyanocobalamin (vitamin B-12) 1,000 mcg tablet 1,000 mcg PO DAILY Qty: 30 0RF acetaminophen 500 mg tablet 1,000 mg PO DIRECTED PRN (Reason: fever or pain) ascorbic acid (vitamin C) 500 mg tablet 500 mg PO QAM calcium carbonate-vitamin D3 600 mg(1,500mg) -200 unit tablet 1 tab PO DAILY fluticasone propionate 50 mcg/actuation spray,suspension 2 sprays intranasal DAILY PRN (Reason: Allergy Symptoms) Qty: 1 glucosamine sulfate 500 mg capsule 500 mg PO DAILY nitroglycerin 0.4 mg tablet, sublingual 0.4 mg SL Q5M PRN (Reason: Angina) Qty: 20 3RF aspirin [Crystal Low Dose Aspirin] 81 mg tablet,delayed release (DR/EC) 81 mg PO 3XWK Rx Instructions: MON, FRI, FRI. cranberry 500 mg capsule 500 mg PO 3XWK Rx Instructions: MON, FRI, FRI. lidocaine 4 % adhesive patch,medicated 1 patch topical DAILY PRN (Reason: pain) Rx Instructions: [facility] ER 04/07/25 clonazepam 0.5 mg tablet 0.5 mg PO HS Rx Instructions: take one tablet at bedtime Changed furosemide [Lasix] 20 mg tablet 20 mg PO QAM Qty: 30 2RF ondansetron 4 mg tablet,disintegrating 4 mg PO Q6H PRN (Reason: nausea and vomiting) Qty: 20 0RF Rx Instructions: [facility] ER 04/07/25 Held omeprazole 40 mg capsule,delayed release(DR/EC) 40 mg PO DAILY Qty: 90 3RF Hold Instructions: hold until your pantoprazole course has been completed potassium chloride 10 mEq tablet extended release 10 meq PO 3XWK Qty: 36 3RF Hold Instructions: hold for now Rx Instructions: FRI, FRI, FRI Discontinued triamterene-hydrochlorothiazid 37.5-25 mg tablet 1 tab PO DAILY Qty: 90 2RF amlodipine 5 mg tablet 5 mg PO DAILY Qty: 90 2RF oxycodone 5 mg tablet 5 mg PO Q4H PRN (Reason: pain) Qty: 15 0RF Rx Instructions: [facility] ER 04/07/25 Discharge Orders: Discharge Order (Routine); Ordered 04/19/25 Ordered By: Guanako Cuevas/Other Patient Handouts: Understanding Gastritis, Hyponatremia Dc Admission Data Admit Date/Time: 04/13/25 18:24 Attending Provider: Guanako Nova Admit Provider: Guanako Nova Primary Care Provider: Rowena Barba Other Providers: Guanako Nova; Rob Dumont; Rakesh Montelongo; Norberto Mcfadden Hospital Stay Data Consultations 04/13/25 14:55 ED Decision to Admit Stat 04/13/25 20:26 Consult Battery Checker Routine Consult Nephrology Routine 04/18/25 08:13 Consult Orthopedic Spine Surgery Routine Diagnostic Imagining Performed 04/16/25 09:00 MR lumbar spine wo/w con Urgent Pending Results Patient Have Any Pending Studies at Discharge: No Discharge Instructions Given to Patient (Per Discharging Provider) Ms Gonzalez, You were hospitalize due to severe hyponatremia (low sodium) which required ICU level of care early in your stay. Your sodium was severely low at 109 upon arrival to [facility]. You received various treatments to bring your sodium level back up. It appears that a condition called "SIADH" was the cause of your low sodium. SIADH stands for "syndrome of inappropriate ADH secretion." ADH is a hormone made in your brain that regulates water & sodium metabolism. There are numerous things that can cause SIADH. In SIADH the hormone becomes "overzealous" or over-active which then causes the low sodium. It can be difficult to treat. We are not fully certain what led to the SIADH. You ultimately responded to the various treatments given (salt tablets, diuretics, etc) and your sodium level at discharge is 128. MRI of your lumbar spine was negative for hematoma and did not show any infection. Thus, we did not find any complications from your recent injection. Orthopedics saw you and agreed that there was nothing on the scan that was consistent with infection. Other issues addressed included constipation, back pain/right leg pain, and swelling of your legs. Recommendations - 1. have a repeat sodium level later this week either on or Friday. You don't have to fast for this blood test. You can have the labs drawn at the [place] office. 2. take salt tablets - 2 grams twice daily until instructed otherwise. Take your next dose TONIGHT. 3. take furosemide diuretic - 20mg once daily. Take a dose as soon as you get home, and then take each morning thereafter. 4. STOP triamterene-hydrochlorothiazide, amlodipine, and potassium supplement. 5. for back pain - -hydrocodone-acetaminophen 7.5mg tablet, 1 tablet every 6 hours as needed for pain -this is narcotic pain killer medicine -it can make you tired/drowsy -it can make you constipated -in some people it can make them mildly confused -you have tolerated this medicine well while in the hospital -remember that this pain killer contains Tylenol in it; thus, if you are taking this medicine, do not take extra [id number] Tylenol 6. for constipation - -miralax once or twice daily and/or -senna 2 tablets daily -shoot for a soft bowel movement every other day 7. for gastritis seen on CT scan - -HOLD your omeprazole for now -change to pantoprazole 40mg twice daily and take for 1 month -after 1 month go back to using omeprazole as previous -please talk to Dr Barba about your gastro symptoms 8. for nausea - -ondansetron 4mg every 6 hours as needed 9. since you are being prescribed the hydrocodone please do NOT take the oxycodone that was recently prescribed before this hospitalization. 10. if possible please use compression stockings on your legs to help with edema. Follow-up - see separate section Return to [facility] if - -you have fevers over 100 degrees -you have worsening shortness of breath -you have vomiting -you have abdominal pains -you have uncontrollable back pain or leg pain -any other concerns It was our pleasure to care for you! -Guanako Nova Coding Diagnoses Hyponatremia E87.1 Degenerative lumbar spinal stenosis M48.061 Lumbar back pain with radiculopathy affecting right lower extremity M54.16 Right foot drop M21.371 Constipation K59.00 Primary hypertension I10 Hypertension type: primary hypertension Hypothyroidism E03.9 Left bundle branch block I44.7 Acid reflux disease K21.9 Hernia, mesocolon K45.8 Bradycardia R00.1
== END 2025-04-19 14:17 | disposition home or self-care (01) | DRG 645 ==
LOC: ED 12:34 → EDINP 18:24 → 1E 20:26 → 2S 04-16 19:18